=== PATIENT | female | born 1965 | race Caucasian/White ===

== ENCOUNTER 2016-12-06 13:39 | Emergency (ER) | payer MEDICAID, OTHER ==
[2016-12-06 13:47] VITALS: RESP 18
--- NOTE | 2016-12-06 14:29 | EDPHY ---
H & P Stated Complaint: MENTAL HEALTH HOLD, PT STATES SHE FELL HIT HEAD NO RECALL Source: Patient, Police Exam Limitations: No limitations - Personal History LMP (Females 10-55): Post Menopausal Current Tetanus/Diphtheria Vaccine: Yes Current Tetanus Diphtheria and Acellular Pertussis (TDAP): Yes Tetanus Vaccine Date: 2007 - Medical/Surgical History Hx Asthma: Yes Hx Chronic Respiratory Disease: Yes Hx Diabetes: No Hx Cardiac Disease: No Hx Renal Disease: No Hx Cirrhosis: No Hx Alcoholism: No Hx HIV/AIDS: No Hx Splenectomy or Spleen Trauma: No Other PMH: Asthma, Bacterial pulmonary aspergillious, OA, Breast implants, depression, anxiety, back L5-S1 and C3-7 fusions, ADHD, - Social History Smoking Status: Light smoker Time Seen by Provider: 12/06/16 13:53 HPI/ROS: CHIEF COMPLAINT: fall, amnesia, M1 from [place] [employer] HISTORY OF PRESENT ILLNESS: Two versions of the history of present illness. Patient reports that her friend took her downtown today for an appointment with her erisa attorney. She reports that after being dropped off by friends she does not exactly know what happened. She thinks that she fell but she is not sure. She does have a mild headache on the back of the head. She reports that she thinks that she was lost so she was trying to walk to the erisa attorney actually was pretty she does not have any recollection of the details of this, and she is not sure what happened to her purse, paperwork on phone that she had when her friend dropped her off. She says that she did not lose consciousness to her knowledge, but has a mild headache. She has no injuries elsewhere. She has no other information regarding today's events. No other obtainable associated complaints or modifying factors. [place] [employer] police officer supplements the history with the following. He says that they were contacted because the friend who dropped her off was concerned that she could no longer find her. The friend dropped her off downtown, with parked vehicle when she returned the patient was gone. She was concerned as she was supposed to wait for her. They eventually found the patient in [place] and brought her here and completed an M1 form due to suicidal ideation and possibility of psychosis. REVIEW OF SYSTEMS: Ten systems reviewed and are negative unless otherwise noted in the HPI EXAMINATION General Appearance: Alert, no distress Head: normocephalic, atraumatic. No hematoma, depression or deformity. No Gonsalves sign. No raccoon eyes. Eyes: Pupils equal and round, no conjunctival pallor or injection. No nystagmus. EOMs intact ENT, Mouth: Mucous membranes moist. Uvula midline. no erythema or edema Neck: Normal inspection, supple, non-tender Respiratory: Lungs are clear to auscultation. No wheezing, rhonchi or crackles Cardiovascular: Regular rate and rhythm. No murmur. Pulses intact distally Gastrointestinal: Abdomen is soft and nontender Back: non-tender, no bony abnormalities Neurological: A&Ox3. Strength is 5/5 in all limbs no focal deficits. Sensory intact. Amnestic to events of this morning Skin: Warm and dry, no rash Extremities: Nontender, no pedal edema Psychiatric: Mood and affect normal DIFFERENTIAL DIAGNOSES: Including but not limited to psychotic break, suicidal ideation, psychosis, suicidal ideation, suicide attempt, fugue MDM: 2:15 p.m. patient reports fall and amnesia of most of the days events yet there is no outward sign of trauma. [place] [employer] report that the patient is here because they were concerned that she may have disappeared without knowing where she was going, but she lost her possessions, she was confused about where she was actually going this morning. In addition to these scenarios, the patient also made statements to her friend of being suicidal today. She has no recollection of this but there is an M1 form completed by [place] [employer] due to suicidal ideation and possible psychosis. I have attempted to contact her Psychiatrist and left a message for them to contact us. 2:45 p.m. I had an extensive conversation with the patient's psychiatrist Dr. Natalia Can. Dr. Can provided in for admission regarding her previous care diagnosis. She informed me that the patient has had several months of ongoing cognitive abnormalities. She has been forgetful and has hard time remembering things in general. She reports 1 episode of previous suicidal ideation/ attempt in [place], which the patient and corroborated. She denies any recent suicidal ideation. The patient does have depression, PTSD and is treated with Pristiq and attention deficit hyperactivity disorder medications. Patient also reportedly has an aspergillosis infection of the lungs that is chronic. The psychiatrist feels that this may be related to her cognitive decline. She reports that the patient has had multiple imaging studies for this. She says that she would be happy to have her office reach out to the patient to help assist with her mental health evaluation. 3:12 p.m. patient's laboratory studies have returned, and she is medically cleared for evaluation. 5:40 p.m. have spoke with the mental health professional Connor Cunha. he has evaluated the patient and feels the M1 should be lifted and the patient can be seen tomorrow with her psychiatrist. The attending physician that he is working with also recommend this. I do feel this is reasonable given my conversation with the patient and her psychiatrist. I feel that she is not a risk to herself or others that she was never truly suicidal. Her cognitive function, although not normal, it is baseline for her, as corroborated by her psychiatrist. She will be discharged home stable condition with instructions to follow up with her psychiatrist tomorrow. She has agreed to return to the emergency department or contact her psychiatrist should she actually have any thoughts of self-harm. SUPERVISION: Patient was evaluated in conjunction with the supervising physician. Please see their note for details. (Dudley Valle) Constitutional: Initial Vital Signs Temperature (C) 36.8 C 12/06/16 13:42 Heart Rate 65 12/06/16 13:42 Respiratory Rate 18 12/06/16 13:42 Blood Pressure 152/98 H 12/06/16 13:42 O2 Sat (%) 98 12/06/16 13:42 O2 Delivery Mode Room Air Allergies/Adverse Reactions: ibuprofen Allergy (Verified 12/06/16 13:47) Sulfa (Sulfonamide Antibiotics) Allergy (Verified 12/06/16 13:47) Home Medications: Medication Instructions Recorded Adderall 10 mg Tablet 08/02/16 Advair 100/50 (*) 08/02/16 Diazepam [Valium 5 MG (*)] 5 mg PO TID PRN #15 tab 08/02/16 Lidocaine 08/02/16 Montelukast Sodium 08/02/16 Oxycodone HCl 08/02/16 Qvar 08/02/16 Solu-Medrol 08/02/16 Oxycodone HCl 5 mg PO QID #14 tablet 08/03/16 Nebivolol HCl [Bystolic] 5 mg PO 12/06/16 Prozozin, 12/06/16 Medical Decision Making Other Provider: Patient had mental health evaluation and it is recommendation of the police communications dispatcher and consulting psychiatrist that the mental health hold be vacated and the patient discharge with outpatient follow-up. Not psychotic or suicidal at discharge. (Hector Alvarez) - Data Points Laboratory Results: Laboratory Results 12/06/16 14:29 12/06/16 14:29 12/06/16 12/06/16 12/06/16 14:29 14:29 14:29 WBC 8.75 10^3/uL 10^3/uL (3.80-9.50) RBC 5.15 10^6/uL 10^6/uL (4.18-5.33) Hgb 14.3 g/dL g/dL (12.6-16.3) Hct 44.7 % % (38.0-47.0) MCV 86.8 fL fL (81.5-99.8) MCH 27.8 pg L pg (27.9-34.1) MCHC 32.0 g/dL L g/dL (32.4-36.7) RDW 17.2 % H % (11.5-15.2) Plt Count 286 10^3/uL 10^3/uL (150-400) MPV 10.7 fL fL (8.7-11.7) Neut % (Auto) 51.2 % % (39.3-74.2) Lymph % (Auto) 29.1 % % (15.0-45.0) [place] % (Auto) 6.2 % % (4.5-13.0) Eos % (Auto) 12.5 % H % (0.6-7.6) Baso % (Auto) 0.8 % % (0.3-1.7) Nucleat RBC Rel Count 0.0 % % (0.0-0.2) Absolute Neuts (auto) 4.48 10^3/uL 10^3/uL (1.70-6.50) Absolute Lymphs (auto) 2.55 10^3/uL 10^3/uL (1.00-3.00) Absolute Monos (auto) 0.54 10^3/uL 10^3/uL (0.30-0.80) Absolute Eos (auto) 1.09 10^3/uL H 10^3/uL (0.03-0.40) Absolute Basos (auto) 0.07 10^3/uL 10^3/uL (0.02-0.10) Absolute Nucleated RBC 0.00 10^3/uL 10^3/uL (0-0.01) Immature Gran % 0.2 % % (0.0-1.1) Immature Gran # 0.02 10^3/uL 10^3/uL (0.00-0.10) Sodium 141 mEq/L mEq/L (134-144) Potassium 3.9 mEq/L mEq/L (3.5-5.2) Chloride 107 mEq/L mEq/L (97-110) Carbon Dioxide 25 mEq/l mEq/l (22-31) Anion Gap 9 mEq/L mEq/L (8-16) BUN 20 mg/dL mg/dL (7-23) Creatinine 0.6 mg/dL mg/dL (0.6-1.0) Estimated GFR > 60 Glucose 87 mg/dL mg/dL (70-100) Calcium 9.9 mg/dL mg/dL (8.5-10.4) Beta HCG, Qual NEGATIVE Salicylates < 1.0 mg/dL L mg/dL (2.0-20.0) Urine Opiates Screen Acetaminophen < 10 mcg/mL L mcg/mL (10.0-30.0) Urine Barbiturates Ur Phencyclidine Scrn Ur Amphetamine Screen U Benzodiazepines Scrn Urine Cocaine Screen U Marijuana (THC) Screen Ethyl Alcohol < 10 mg/dL mg/dL (0-10) 12/06/16 13:50 WBC RBC Hgb Hct MCV MCH MCHC RDW Plt Count MPV Neut % (Auto) Lymph % (Auto) [place] % (Auto) Eos % (Auto) Baso % (Auto) Nucleat RBC Rel Count Absolute Neuts (auto) Absolute Lymphs (auto) Absolute Monos (auto) Absolute Eos (auto) Absolute Basos (auto) Absolute Nucleated RBC Immature Gran % Immature Gran # Sodium Potassium Chloride Carbon Dioxide Anion Gap BUN Creatinine Estimated GFR Glucose Calcium Beta HCG, Qual Salicylates Urine Opiates Screen NEGATIVE (NEGATIVE) Acetaminophen Urine Barbiturates NEGATIVE (NEGATIVE) Ur Phencyclidine Scrn NEGATIVE (NEGATIVE) Ur Amphetamine Screen NON-NEGATIVE H (NEGATIVE) U Benzodiazepines Scrn NON-NEGATIVE H (NEGATIVE) Urine Cocaine Screen NEGATIVE (NEGATIVE) U Marijuana (THC) Screen NEGATIVE (NEGATIVE) Ethyl Alcohol Departure - Departure Disposition: Home, Routine, Self-Care Clinical Impression: Cognitive and neurobehavioral dysfunction following brain injury Qualifiers: Encounter type: subsequent encounter Loss of consciousness presence/duration: without LOC Qualified Code(s): S06.9X0D - Unspecified intracranial injury without loss of consciousness, subsequent encounter Condition: Good Instructions: Suicide Prevention for Adults (ED) Additional Instructions: Follow up with psychiatrist tomorrow at 1:00 p.m.. Contact ED or Dr. Can for any thoughts of self harm Referrals: ZOE MÁRQUEZ [Other] - As per Instructions
[2016-12-06 14:47] LABS: % IMMATURE GRANULYOCYTES 0.2 % (0.0-1.1); ABSOLUTE IMMATURE GRANULOCYTES 0.02 10^3/uL (0.00-0.10); ADD DIFF? NO; ADD MORPH? NO; ADD SCAN? NO; ATYPICAL LYMPHOCYTE FLAG 0 (0-99); FRAGMENT RBC FLAG 0 (0-99); HEMATOCRIT 44.7 % (38.0-47.0); HEMOGLOBIN 14.3 g/dL (12.6-16.3); LEFT SHIFT FLG 0 (0-99); LIPEMIA HEMOLYSIS FLAG 80 (0-99); MEAN CELL HEMOGLOBIN 27.8 pg (27.9-34.1); MEAN CELL VOLUME 86.8 fL (81.5-99.8); MEAN PLATELET VOLUME 10.7 fL (8.7-11.7); PLATELET CLUMPS FLAG 0 (0-99); PLATELET COUNT 286 10^3/uL (150-400); RED BLOOD CELL COUNT 5.15 10^6/uL (4.18-5.33); RED CELL DISTRIBUTION WIDTH 17.2 % (11.5-15.2)
[2016-12-06 14:59] LABS: ANION GAP 9 mEq/L (8-16); CALCIUM 9.9 mg/dL (8.5-10.4); CARBON DIOXIDE 25 mEq/l (22-31); CHLORIDE 107 mEq/L (97-110); CREATININE 0.6 mg/dL (0.6-1.0); ETHANOL SERUM < 10 mg/dL (0-10); GLOMERULAR FILTRATION RATE > 60; GLUCOSE 87 mg/dL (70-100); POTASSIUM 3.9 mEq/L (3.5-5.2); SALICYLATE < 1.0 mg/dL (2.0-20.0); SODIUM 141 mEq/L (134-144)
[2016-12-06 18:34] VITALS: BP 140/85; PULSE 74; TEMP 97.9; O2SAT 95
== END 2016-12-06 18:00 | disposition home or self-care (01) ==
DX: S06.9X0A Unspecified intracranial injury without loss of consciousness, initial encounter (principal); J45.909 Unspecified asthma, uncomplicated; F17.200 Nicotine dependence, unspecified, uncomplicated; W01.198A Fall on same level from slipping, tripping and stumbling with subsequent striking against other object, initial encounter
CPT/HCPCS: 80305; G0480

== ENCOUNTER 2017-03-02 14:20 | Emergency (ER) | payer MEDICAID ==
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
[2017-03-02 15:44] VITALS: RESP 14; O2SAT 97
[2017-03-02] MEDS ORDERED: oxyCODONE IR 5 MG TAB PO ONE (16:11)
[2017-03-02 17:53] VITALS: BP 147/107; PULSE 92; TEMP 97.9
== END 2017-03-02 18:08 | disposition home or self-care (01) ==
DX: S13.9XXA Sprain of joints and ligaments of unspecified parts of neck, initial encounter (principal); S33.5XXA Sprain of ligaments of lumbar spine, initial encounter; S63.642A Sprain of metacarpophalangeal joint of left thumb, initial encounter; J45.909 Unspecified asthma, uncomplicated; F17.210 Nicotine dependence, cigarettes, uncomplicated; X58.XXXA Exposure to other specified factors, initial encounter; Y99.8 Other external cause status; Y93.52 Activity, horseback riding
CPT/HCPCS: L3807

== ENCOUNTER 2017-04-27 22:30 | Emergency (ER) | payer MEDICAID ==
--- NOTE | 2017-04-27 22:39 | EDPHY ---
H & P HPI/ROS: CHIEF COMPLAINT: Back pain. HISTORY OF PRESENT ILLNESS: The patient is a 51-year-old female with a history of cervical and lumbar fusions, chronic back pain, who presents with worsening lower back pain that began this morning. The pain is severe in nature. It radiates down both legs. Her right 1st toe and heel have been numb since yesterday when she helped a family member move hay. She denies fever, weakness, incontinence, saddle anesthesia, or other complaints. She has been taking oxycodone at home for the pain but has not taken any muscle relaxants. She is currently on a steroid taper. She is followed by Dr Shepard. She has had a relatively recent MRI and injection was recommended for her ongoing back pain. REVIEW OF SYSTEMS: A ten point review of systems was performed and is negative with the exception of the items mentioned in the HPI. Source: Patient Exam Limitations: No limitations - Personal History Tetanus Vaccine Date: 2007 - Medical/Surgical History Hx Asthma: Yes Hx Chronic Respiratory Disease: Yes Hx Diabetes: No Hx Cardiac Disease: No Hx Renal Disease: No Hx Cirrhosis: No Hx Alcoholism: No Hx HIV/AIDS: No Hx Splenectomy or Spleen Trauma: No Other PMH: 1. Asthma. 2. Bacterial pulmonary aspergillious. 3. OA. 4. Breast implants. 5. depression. 6. anxiety. 7. L5-S1 and C3-7 fusions. 8. ADHD - Social History Smoking Status: Light smoker Drug Use: None Additional Social History: Light smoker She is single - Physical Exam Exam: General Appearance: Alert, uncomfortable-appearing, curled in position. Vital signs reviewed. BP 137/81. Eyes: Pupils equal and round, no conjunctival injection, no discharge. Anicteric. ENT, Mouth: Mucous membranes are moist, no oropharyngeal erythema or edema. Neck: No lymphadenopathy, supple. Respiratory: Lungs are clear to auscultation; no wheezes, rales, or rhonchi. Cardiovascular: Regular rate and rhythm; no murmur, rub, or gallop. Gastrointestinal: Abdomen is soft and nontender, no masses or organomegaly, bowel sounds normal. Skin: Warm and dry, no rashes on exposed skin, normal color. Back: Nontender to palpation over the thoracolumbar spine. No CVAT. Previous surgical incision without erythema or warmth or fluctuance Extremities: No lower extremity edema, no calf tenderness or swelling. Neurological: Alert and oriented. Moving all four extremities easily and equally. Sensation is intact to light touch over all 4 extremities. Deep tendon reflexes are 2+ knees bilaterally. Weakness in right EHL, otherwise 5/5 all major motor groups BLEs. Psychiatric: Normal affect. Constitutional: Initial Vital Signs Temperature (C) 36.5 C 04/27/17 22:40 Heart Rate 92 04/27/17 22:40 Respiratory Rate 18 04/27/17 22:40 Blood Pressure 137/81 H 04/27/17 22:40 O2 Sat (%) 98 04/27/17 22:40 O2 Delivery Mode Room Air Allergies/Adverse Reactions: ibuprofen Allergy (Verified 04/27/17 22:41) Sulfa (Sulfonamide Antibiotics) Allergy (Verified 04/27/17 22:41) tapentadol [From Nucynta] Allergy (Verified 04/27/17 22:49) trazodone Allergy (Verified 04/27/17 22:49) Home Medications: Medication Instructions Recorded Adderall 10 mg Tablet 08/02/16 Advair 100/50 (*) 08/02/16 Montelukast Sodium 08/02/16 Oxycodone HCl 08/02/16 Qvar 08/02/16 Nebivolol HCl [Bystolic] 5 mg PO 12/06/16 Prozozin, 12/06/16 oxyCODONE IR [Oxycodone Ir (*)] 5 mg PO Q6 PRN #8 tab 03/02/17 Diazepam [Valium 5 MG (*)] 5 mg PO TID PRN #15 tab 04/27/17 Ipratropium 04/27/17 Mucomyst 04/27/17 Nasonex 04/27/17 Phenergan Vc-Codeine Syrup 04/27/17 Prednisone 04/27/17 Prozac 04/27/17 Voriconazole 04/27/17 Medical Decision Making ED Course/Re-evaluation: 51-year-old female presents to the ED today with lower back pain that radiates down both legs, with associated numbness in her right 1st toe and heel. 5mg IV Valium administered for pain control and muscle spasms. Re-evaluated at 11:30 p.m.. She is feeling significantly better after the IV Valium. She is able to lie flat on her back in the bed with her knees flexed slightly. She was re-examined. She has 5/5 hip flexion and extension, 5/5 knee flexion and extension, 5/5 plantar flexion, dorsiflexion, and EHL bilaterally. Sensation is intact to light touch. On initial exam she had weakness of the right EHL, this is no longer appreciated. I suspect that she is able to better participate in motor testing now that her pain is relieved. She is comfortable returning home. I am writing her prescription for Valium to use for muscle spasms as needed. She will continue with her oxycontin ( longstanding prescription). She did not ask for any refills or opiates. She will contact her neurosurgeon on Saturday. We discussed the danger signs that should prompt her to be re-evaluated. Differential Diagnosis: I considered a ddx that includes but is not limited to lumbar radiculopathy, epidural abscess, UTI/pyelonephritis, kidney stone, drug seeking behavior. - Data Points Medications Given: Discontinued Medications Diazepam (Valium Injection) 5 mg IVP EDNOW ONE Stop: 04/27/17 22:53 Last Admin: 04/27/17 23:02 Dose: 5 mg Departure - Departure Disposition: Home, Routine, Self-Care Clinical Impression: Lumbar radiculopathy Condition: Good Instructions: Lumbar Radiculopathy (ED) Additional Instructions: Follow up with Dr. Garza as planned. Call his office on Saturday to let him know about tonight's visit. Use the muscle relaxant as prescribed. Continue with your Oxy Contin and other medications. Referrals: Carlos Shepard MD [Medical Doctor] - As per Instructions Prescriptions: Diazepam [Valium 5 MG (*)] 5 mg PO TID PRN #15 tab PRN Reason: Spasms Report Scribed for: Nichole Osorio Report Scribed by: German Townsend Date of Report: 04/27/17 Time of Report: 22:46 Physician Review and Approval Statement: 04/27/17 22:39 Portions of this note were transcribed by the medical superintendent. I, Dr. Nichole Osorio, personally performed the history, physical exam, and medical decision- making; and confirmed the accuracy of the information in the transcribed note.
[2017-04-27 22:48] VITALS: TEMP 97.7
[2017-04-27] MEDS ORDERED: DIAZEPAM 10 MG/2 ML SYR IVP ONE (22:52)
[2017-04-28 00:03] VITALS: BP 124/71; PULSE 79; RESP 16; O2SAT 94
== END 2017-04-28 00:20 | disposition home or self-care (01) ==
LOC: EDUNIT#
DX: M54.16 Radiculopathy, lumbar region (principal); J45.909 Unspecified asthma, uncomplicated; F17.200 Nicotine dependence, unspecified, uncomplicated
CPT/HCPCS: 96374

== ENCOUNTER 2017-04-30 22:47 | Inpatient (IN) | payer MEDICAID ==
[2017-04-30] MEDS ORDERED: DIAZEPAM 10 MG/2 ML SYR IVP ONE (23:26)
[2017-04-30] MEDS ORDERED: fentaNYL 100 MCG/2 ML INJ IVP ONE (23:26)
--- NOTE | 2017-04-30 23:31 | EDPHY ---
H & P Stated Complaint: back spasms began Saturday with radiation to R hip and groin Source: Patient Exam Limitations: No limitations - Personal History Current Tetanus/Diphtheria Vaccine: Yes Tetanus Vaccine Date: 2007 - Medical/Surgical History Hx Asthma: Yes Hx Chronic Respiratory Disease: Yes Hx Diabetes: No Hx Cardiac Disease: No Hx Renal Disease: No Hx Cirrhosis: No Hx Alcoholism: No Hx HIV/AIDS: No Hx Splenectomy or Spleen Trauma: No Other PMH: 1. Asthma. 2. Bacterial pulmonary aspergillious. 3. OA. 4. Breast implants. 5. depression. 6. anxiety. 7. L5-S1 and C3-7 fusions. 8. ADHD - Social History Smoking Status: Light smoker HPI/ROS: CHIEF COMPLAINT: Back pain HISTORY OF PRESENT ILLNESS: Patient complains of severe lumbar back pain. This is an acute exacerbation of chronic pain. It started to worsen on Saturday and was associated with back spasms. It is steadily worsened. It is now radiating down the right leg and into the right groin. Also associated with occasional numbness and persistent paresthesia of the right foot on the plantar surface. She has had no incontinence of bowel or bladder. No retention of bowel or bladder. No anesthesia of the perineum. No fever or chills. No IV drug abuse. She has a longstanding history of lumbar degenerative disc disease and stenosis. She has undergone 1 surgical procedure in the past. She has been under pain management, physiotherapy, physical therapy and neuro surgical monitoring. She reports no new trauma or injury. She was seen here on Saturday and treated with Valium. She was prescribed Valium but was unable to pick it up until Saturday. The Valium helps her sleep but does not improve her symptoms during the day. She also takes 15 mg oxycodone every 4-6 hours, and she has been taking twice this with minimal improvement. No other associated complaints or modifying factors. REVIEW OF SYSTEMS: Ten systems reviewed and are negative unless otherwise noted in the HPI PAST MEDICAL HISTORY: Degenerative disc disease. Others as reviewed. SOCIAL HISTORY: Nonsmoker. Lives [place] in [place] with her daughter and roommate FAMILY HISTORY: Noncontributory EXAMINATION General Appearance: Alert, no distress. In obvious discomfort. Kneeling on the floor and leaning over the bed, anxious and fidgeting Head: normocephalic, atraumatic Eyes: Pupils equal and round, no conjunctival pallor or injection ENT, Mouth: Mucous membranes moist Neck: Normal inspection, supple, non-tender Respiratory: Lungs are clear to auscultation. No wheeze, rhonchi or crackles. Cardiovascular: Regular rate and rhythm. No murmur. Gastrointestinal: Abdomen is soft and nontender Back: Tenderness to palpation of the lumbar spine and upper sacrum. No crepitus, step-off or deformity. No palpable fluctuance. No erythema of the low back. No lesions, erythema or signs of infection Neurological: GCS 15. A&O, nonfocal. Antalgic gait. Strength is 5/5 in the left leg and both arms. Strength is 4/5 in the right lower extremity. Reports decreased sensation in the plantar surface of the right foot. Skin: Warm and dry, no rash. Excoriations to the face. No abscess, lesions, lacerations to the back or extremities. Extremities: Nontender, no pedal edema Psychiatric: Mood and affect normal DIFFERENTIAL DIAGNOSES: Including but not limited to acute cord compression, cauda equina syndrome, lumbago, spinal stenosis, degenerative disc disease, herniated disc, ruptured disc MDM: 11:25 p.m. Low back pain with right lower extremity involvement, right foot paresthesia and partial anesthesia of the dorsum of the right foot. There is mild weakness on the right lower extremity at the ankle and knee. Due to her extreme pain and mild deficits of the right lower extremity, I have ordered a stat MRI. We have notified the MRI team and requested that they return to the hospital for the MRI. I have ordered IV fentanyl and IV Valium. I do not appreciate any history or examination evidence that would suggest diskitis or infection, nor do I appreciate any possibility of epidural abscess. 12:30 a.m. Patient is currently in MRI. Her pain and increase, thus I have ordered a no other dose of IV pain medication to be administered. At this time I have discussed the case with Dr. Bundy. She will assume care the patient at this time. Her please see her note for final disposition. 12:50 a.m. Notified by ELIZA Dominique. Patient still continues to be too uncomfortable to obtain the MRI. I have verbally ordered 1 mg of Ativan IV. Continue to monitor closely an MRI. SUPERVISION: Patient was evaluated in conjunction with the supervising physician. Please see their note for details. (Dudley Valle) 6:30 a.m.- The patient was mostly sleeping throughout my shift. She received opiates and Ativan to control her pain for the MRI and was quite sedate afterwards. MRI did demonstrate sacral insufficiency fracture which was new as compared her old MRI. When she awoke just a few minutes ago we tried to get her up and walk and she could only walk with 2 person assist because the pain was so severe. I do not feel she is safe for discharge. I consulted with the on-call neurosurgeon for Dr. Shepard, Dr. Velazco. We discussed the case and her service will see the patient in consultation with the hospitalist. I consulted with Dr. Moore of the hospitalist service and we plan to admit the patient for pain control. (Manda Bundy) Constitutional: Initial Vital Signs Temperature (C) 37 C 04/30/17 22:57 Heart Rate 103 H 04/30/17 22:57 Respiratory Rate 18 04/30/17 22:57 Blood Pressure 133/69 H 04/30/17 22:57 O2 Sat (%) 93 04/30/17 22:57 O2 Delivery Mode Nasal Cannula O2 (L/minute) 1 Allergies/Adverse Reactions: ibuprofen Allergy (Verified 04/27/17 22:41) Sulfa (Sulfonamide Antibiotics) Allergy (Verified 04/27/17 22:41) tapentadol [From Nucynta] Allergy (Verified 04/27/17 22:49) trazodone Allergy (Verified 04/27/17 22:49) Home Medications: Medication Instructions Recorded Montelukast Sodium 08/02/16 Oxycodone HCl 08/02/16 Qvar 08/02/16 oxyCODONE IR [Oxycodone Ir (*)] 5 mg PO Q6 PRN #8 tab 03/02/17 Diazepam [Valium 5 MG (*)] 5 mg PO TID PRN #15 tab 04/27/17 Ipratropium 04/27/17 Nasonex 04/27/17 Prednisone 04/27/17 Prozac 04/27/17 Voriconazole 04/27/17 Departure - Departure Disposition: Home, Routine, Self-Care Clinical Impression: Lumbar radiculopathy Acute low back pain Qualifiers: Back pain laterality: right Sciatica presence: with sciatica Sciatica laterality: sciatica of right side Qualified Code(s): M54.41 - Lumbago with sciatica, right side Condition: Good Referrals: [facility] [Other] - As per Instructions
[2017-05-01] MEDS ORDERED: fentaNYL 100 MCG/2 ML INJ ONE (00:19)
[2017-05-01] MEDS ORDERED: LORazepam 2 MG/ML INJ ONE (00:51)
[2017-05-01] MEDS ORDERED: fentaNYL 100 MCG/2 ML INJ IVP ONE (01:07)
[2017-05-01] MEDS ORDERED: LORazepam 2 MG/ML INJ IVP ONE (01:07)
[2017-05-01] MEDS ORDERED: IPRATROPIUM/ALBUTEROL 3 ML DEYVIAL IH ONE (05:51)
[2017-05-01] MEDS ORDERED: ceFAZolin 2 GM/DEXTROSE 100 ML IV ONE ×2 (06:00→16:23)
[2017-05-01] MEDS ORDERED: ACETAMINOPHEN 325 MG TAB PO PRN (07:09)
[2017-05-01] MEDS ORDERED: ONDANSETRON DISINTEGRATING 4 MG TAB PO PRN (07:09)
[2017-05-01] MEDS ORDERED: ONDANSETRON 4 MG/2 ML VIAL IVP PRN (07:09)
[2017-05-01] MEDS ORDERED: PROMETHAZINE HCL 25 MG/ML INJ IVP PRN (07:09)
[2017-05-01] MEDS ORDERED: NS 1,000 ML IV SCH (07:15)
[2017-05-01] MEDS ORDERED: DIAZEPAM 5 MG TAB PO PRN (07:15)
[2017-05-01 07:24] LABS: % IMMATURE GRANULYOCYTES 0.3 % (0.0-1.1); ABSOLUTE IMMATURE GRANULOCYTES 0.01 10^3/uL (0.00-0.10); ADD DIFF? NO; ADD MORPH? NO; ADD SCAN? NO; ATYPICAL LYMPHOCYTE FLAG 40 (0-99); FRAGMENT RBC FLAG 0 (0-99); HEMATOCRIT 48.1 % (38.0-47.0); HEMOGLOBIN 15.8 g/dL (12.6-16.3); LEFT SHIFT FLG 0 (0-99); LIPEMIA HEMOLYSIS FLAG 80 (0-99); MEAN CELL HEMOGLOBIN 30.4 pg (27.9-34.1); MEAN CELL HEMOGLOBIN CONCENTR. 32.8 g/dL (32.4-36.7); MEAN CELL VOLUME 92.7 fL (81.5-99.8); MEAN PLATELET VOLUME 10.8 fL (8.7-11.7); PLATELET CLUMPS FLAG 40 (0-99); PLATELET COUNT 251 10^3/uL (150-400); RED BLOOD CELL COUNT 5.19 10^6/uL (4.18-5.33); RED CELL DISTRIBUTION WIDTH 13.7 % (11.5-15.2)
[2017-05-01 07:30] LABS: ALANINE AMINOTRANSFERASE 35 IU/L (9-52); ALBUMIN 3.7 g/dL (3.5-5.0); ALKALINE PHOSPHATASE 84 IU/L (38-126); ANION GAP 10 mEq/L (8-16); ASPARTATE AMINOTRANSFERASE 31 IU/L (14-46); BILIRUBIN,TOTAL 0.6 mg/dL (0.1-1.4); CALCIUM 9.3 mg/dL (8.5-10.4); CARBON DIOXIDE 25 mEq/l (22-31); CHLORIDE 103 mEq/L (97-110); CREATININE 0.7 mg/dL (0.6-1.0); GLOMERULAR FILTRATION RATE > 60; GLUCOSE 75 mg/dL (70-100); POTASSIUM 4.5 mEq/L (3.5-5.2); SODIUM 138 mEq/L (134-144); TOTAL PROTEIN 6.5 g/dL (6.3-8.2)
[2017-05-01] MEDS: HYDROmorphONE/DILAUDID 1 MG/ML SYR IVP PRN ×3 (09:08→20:03)
--- NOTE | 2017-05-01 09:43 | GHP ---
[f rep st] HISTORY AND PHYSICAL DATE OF ADMISSION: 05/01/2017 CHIEF COMPLAINT: Low back pain. HISTORY OF PRESENT ILLNESS: This is a 51-year-old female with a history of three previous spinal surgeries, who presents with acute low back pain. History is markedly limited by her somnolence. She is falling asleep continuously as I am trying to talk with her. She presented about 10 o'clock last night to the emergency department because of this. She was given some sedation to tolerate an MRI. This was completed successfully. For this, she did receive a total of 200 mcg of fentanyl, 5 mg of Valium and 1 mg of Ativan. She tells me she has no real lower extremity weakness or numbness. She has not lost control of her bowel or her bladder. She has had mild fevers. PAST MEDICAL/SURGICAL HISTORY: 1. ABPA, recently hospitalized here for a flare, currently on voriconazole as well as inhalers. 2. Three spinal surgeries as above; the last was on October 08, 2015. MEDICATIONS: Please see medication reconciliation. ALLERGIES: Ibuprofen, sulfa, trazodone. SOCIAL HISTORY: She is accompanied by her daughter. She just recently moved to [place]. FAMILY HISTORY: She denies. REVIEW OF SYSTEMS: A 10-point review of systems is conducted and is negative except per HPI. PHYSICAL EXAMINATION: VITAL SIGNS: Blood pressure 126/74, heart rate 105, respiration rate 16, saturating at 98% on room air. GENERAL: Ms. Littlejohn is a somnolent female who is falling asleep, who appears quite uncomfortable when she wakes up and tries to move. HEENT: Shows to be normocephalic, atraumatic. CARDIOVASCULAR: Regular rate and rhythm. No murmurs, rubs, or gallops. PULMONARY: Lungs clear to auscultation bilaterally. She is not in any respiratory distress. SKIN: Shows no rash. : No Navarro. NEUROLOGIC: Shows her to be alert and oriented x3. She is moving all extremities. She has sensation to light touch intact in the lower extremities. Reflexes are 1+ patella bilateral, motor seems to be intact but limited by strength mostly on the right side. She has no tenderness to palpation over her spinal prostheses. PSYCHIATRIC: Exam shows her to be depressed. DATA: 1. I discussed this with Dr. Bundy will admit to med/surg for pain control. 2. I reviewed her MRI. This shows a right sacral insufficiency fracture, which is new since February. She has degenerative disc disease. She has some mild left and right neuroforaminal stenosis at L5-S1. IMPRESSION AND PLAN: A 51-year-old female with uncontrolled low back pain. 1. Low back pain: Neurosurgery has been consulted. They will follow her while she is in-house. She does have a new sacral insufficiency fracture, though nothing more concerning on her MRI or her exam (which is very limited). We will treat her symptomatically for now with IV and oral pain medications, muscle relaxers, including Valium. We will monitor on pulse oximetry as she is quite somnolent. This is high risk having to use IV narcotics to control her pain. 2. ABPA: This is per her history. She does appear to be on voriconazole. I was unable to get too much history from her, though would like to understand her disease course a little bit better. She is currently breathing comfortably on room air. I have written her for nebulizers as needed. We will need to continue her voriconazole when these are reconciled. /[id number]/MODL MTDD
[2017-05-01] MEDS: oxyCODONE IR 5 MG TAB PO PRN (11:26)
[2017-05-01] MEDS ORDERED: ALBUTEROL 60 PUFFS/8 GM MDI IH PRN (11:53)
[2017-05-01] MEDS ORDERED: NON-FORMULARY NEW DRUG (Dextroamphetamine/Amphetamine [Adderall 30 Mg Tablet] 30 MG) PO SCH ×2 (12:00→21:00)
[2017-05-01] MEDS ORDERED: NON-FORMULARY NEW DRUG (Fluoxetine Hcl [Prozac 40 Mg] 40 MG) PO SCH (12:00)
--- NOTE | 2017-05-01 12:05 | HOSPPROG ---
Hospitalist Progress Note Assessment/Plan: 1. Sacral fracture -no fall, likely from chronic steroid use, awaiting IR re possible plasty, revwd neurosurg notes, discussed care with Dr Archer -rolando patch started, on chronic opioids, home meds restarted 2. [facility] resident -asked CM/SW to assist 3. chronic steroids for ABPA -says uses mechanical airway clearance vest, pulm toilet, asked resp to arrange as she did not bring her vest to hospital 4. ADHD/depression -says on daily adderall (but not taken for 2 days) -restarted on home med -denies street drug use -followed by [facility] prophy- holding lovenox bc of IR pending, TEDS Dispo- 1-2 more mdnts depending upon pain control/IR procedure PCP [facility]- Dr Lindsey and P Dr Natalia Can (sp?) Subjective: Very uncomfortable. Denies fall/trauma, says was mopping floor then sudden pain. Also noting some L wrist weakness (for a few days)- but no pain/ trauma. Living at [facility] with daughter, new to area. Sees [facility] and [facility]. No f/v/d/cp/sob. Objective: Vital Signs Temp Pulse Resp BP Pulse Ox 98.6 F 108 H 18 126/74 H 97 04/30/17 22:57 05/01/17 07:47 05/01/17 07:47 05/01/17 07:00 05/01/17 07:47 - Time Spent With Patient Time Spent with Patient: greater than 35 minutes Time Spent with Patient: Greater than 35 minutes spent on this patients care, greater than 50% of time spent counseling, educating, and coordinating care regarding the above mentioned plan. - Pending Discharge Pending Discharge Within 24 Hours: No - Physical Exam Constitutional: uncomfortable, unkempt Eyes: PERRL, anicteric sclera, EOMI Ears, Nose, Mouth, Throat: moist mucous membranes, hearing normal Cardiovascular: no murmur, rub, or gallop, tachycardia Respiratory: no respiratory distress, no rales or rhonchi, clear to auscultation Gastrointestinal: normoactive bowel sounds, soft, non-tender abdomen, no palpable masses Skin: warm, other (multiple scabs- no crusting or fluctuance noted) Neurologic: other (moving B wrists when not 'showing me' her L wrist, when ' showing me' L wrist it is flexed) Psychiatric: not encephalopathic, anxious ICD10 Worksheet Patient Problems: Problems Problem Status Onset Acute low back pain Acute Lumbar radiculopathy Acute Cervical sprain Acute Left thumb sprain Acute Lumbar sprain Acute
[2017-05-01] MEDS: predniSONE 10 MG TAB PO SCH (12:56)
[2017-05-01] MEDS: VORICONAZOLE 200 MG TAB PO SCH ×2 (12:56→20:04)
[2017-05-01] MEDS: FLUoxetine 20 MG CAP PO SCH (12:56)
[2017-05-01] MEDS: ADDERALL 20 MG TAB PO SCH ×2 (12:56→20:00)
[2017-05-01] MEDS: LIDOCAINE 5% 1 EA PATCH TD SCH (12:56)
[2017-05-01] MEDS: ACETYLCYSTEINE 10% 30 ML VIAL IH SCH ×2 (12:57→20:33)
[2017-05-01 13:05] LABS: PHENCYCLIDINE URINE BCH < 6 ng/ml (NEGATIVE); PHENCYCLIDINE URINE BCH NEGATIVE (NEGATIVE); TETRAHYDROCANNABINOL URINE < 5 ng/mL (NEGATIVE); TETRAHYDROCANNABINOL URINE NEGATIVE (NEGATIVE)
[2017-05-01] MEDS: BECLOMETHASONE QVAR 80 MDI IH SCH ×2 (13:32→20:33)
[2017-05-01] MEDS: IPRATROPIUM/ALBUTEROL 3 ML DEYVIAL IH SCH (13:33)
[2017-05-01 13:55] LABS: ALANINE AMINOTRANSFERASE 34 IU/L (9-52); ALBUMIN 3.2 g/dL (3.5-5.0); ALKALINE PHOSPHATASE 80 IU/L (38-126); ASPARTATE AMINOTRANSFERASE 26 IU/L (14-46); BILIRUBIN,TOTAL 0.8 mg/dL (0.1-1.4); CALCIUM 8.8 mg/dL (8.5-10.4); CARBON DIOXIDE 22 mEq/l (22-31); CHLORIDE 99 mEq/L (97-110); CREATININE 0.7 mg/dL (0.6-1.0); GLOMERULAR FILTRATION RATE > 60; GLUCOSE 70 mg/dL (70-100); SODIUM 130 mEq/L (134-144); TOTAL PROTEIN 5.8 g/dL (6.3-8.2)
[2017-05-01 15:42] LABS: ANION GAP 9 mEq/L (8-16); POTASSIUM 5.1 mEq/L (3.5-5.2)
--- NOTE | 2017-05-01 15:45 | GCON ---
[f rep st] CONSULTATION NEUROSURGICAL CONSULTATION. DATE OF CONSULTATION: 05/01/2017 CHIEF COMPLAINT: Right hip pain. HISTORY OF PRESENT ILLNESS: Ms Littlejohn is a 51-year-old female with a history of a previous cervical fusion and a lumbar spine surgery as well. She was helping her mom with some things and mopping, when she developed worsening right hip pain. She describes the pain in the right side of her sacrum and low back. She feels like her legs are generally weak and this is associated with some pain in her leg. She denies any ataxia or bowel or bladder problems. PAST MEDICAL HISTORY: Reactive airway disease, pulmonary aspergillosis, depression. MEDICATIONS: Prior to admission are albuterol, Qvar, Adderall, Valium, Prozac, herbal supplements, DuoNeb, Nasonex, Singulair, oxycodone, prednisone. PAST SURGICAL HISTORY: Includes cervical fusion and left L4-5 hemilaminotomy. ALLERGIES: Ibuprofen, sulfa, trazodone. FAMILY HISTORY: The patient has no family history of spine issues. SOCIAL HISTORY: The patient is , does have a daughter. She smokes and drinks alcohol socially. Denies recreational drug use. REVIEW OF SYSTEMS: Negative. PHYSICAL EXAM: GENERAL: The patient is a 51-year-old female lying in bed, in a moderate amount of distress. HEENT: Head, eyes, ears, nose, and throat are negative for drainage. EXTREMITIES: Faith, warm, and dry. NEUROLOGIC: Exam patient is awake, alert, oriented x4. Pupils equal, round, reactive to light. Extraocular motions are intact. There is no evidence of facial droop. Tongue and uvula are midline. Spinal accessory muscles are intact. Her motor strength is 5/5 in all muscle groups for upper and lower extremities bilaterally. Sensation is grossly intact to light touch in both upper and lower extremities bilaterally. Deep tendon reflexes are 1+/4. DIAGNOSTIC STUDIES: MRI of the lumbar spine [facility], May 01, 2017, shows preservation of the sagittal alignment. There is moderate L4-5 degenerative joint disease with Modic changes in the disk space. There are postoperative change consistent with a left L4-5 hemilaminotomy. There is a right sacral insufficiency fracture. There is no evidence of canal compromise. IMPRESSION: This is a 51-year-old female with right-sided hip and back pain, most likely related to a right-sided sacral insufficiency fracture. She is neurologically stable. PLAN: All the above was discussed in detail with the patient. This patient was seen and examined by Dr. Jorge Gambino in the emergency department. At this point in time, we recommend the patient rest. An LSO brace is not likely to help with her pain, but we do expect her pain to gradually improve on a conservative basis. If she fails to improve, then we could have Interventional Radiology consider a right-sided sacroplasty. At this point, we will follow her on a conservative basis. Please call with any neurological changes. /[id number]/MODL Patient has a profound left wrist drop that is painless and started acutely this morning. Triceps functions well. We suspect a positional radial nerve palsy. Sacralplasty is a treatment option for painful sacral fractures but we do not endorse this as a suggested treatment. It is unlikely to help. MD JACINTO Franklin
[2017-05-01] MEDS ORDERED: NS 1,000 ML IV ONE (16:23)
[2017-05-01] MEDS ORDERED: DEXAMETHASONE 10 MG/ML VIAL IVP ONE (16:23)
[2017-05-01] MEDS: Mometasone Furoate Nasal [Nasonex] 2 SPRAYS NASAL SCH (17:28)
[2017-05-01] MEDS: oxyCODONE IR 15 MG TAB PO PRN (18:10)
[2017-05-01] MEDS: MONTELUKAST SODIUM 10 MG TAB PO SCH (18:10)
[2017-05-01 18:31] LABS: COLOR YELLOW; LEUKOCYTE ESTERASE,URINE NEGATIVE (NEGATIVE); NITRITE,URINE NEGATIVE (NEGATIVE)
[2017-05-01 18:32] LABS: HEMATOCRIT 41.6 % (38.0-47.0); HEMOGLOBIN 14.2 g/dL (12.6-16.3); MEAN CELL HEMOGLOBIN 30.3 pg (27.9-34.1); MEAN CELL HEMOGLOBIN CONCENTR. 34.1 g/dL (32.4-36.7); MEAN CELL VOLUME 88.7 fL (81.5-99.8); RED BLOOD CELL COUNT 4.69 10^6/uL (4.18-5.33); RED CELL DISTRIBUTION WIDTH 13.3 % (11.5-15.2)
[2017-05-01 18:33] LABS: BACTERIA TRACE /hpf (NONE SEEN); MUCUS TRACE /lpf (NONE-1+)
[2017-05-01] MEDS: DIAZEPAM 2 MG TAB PO SCH (20:04)
[2017-05-01] MEDS: ALBUTEROL 3 ML DEYVIAL IH PRN (20:33)
[2017-05-01] MEDS ORDERED: BECLOMETHASONE QVAR 80 MDI IH SCH (21:00)
[2017-05-01] MEDS: PATCH REMOVAL 1 EA PATCH TD SCH (23:11)
[2017-05-02] MEDS: HYDROmorphONE/DILAUDID 1 MG/ML SYR IVP PRN ×3 (01:01→23:40)
[2017-05-02] MEDS: ALBUTEROL 3 ML DEYVIAL IH PRN ×2 (04:34→20:30)
[2017-05-02 05:57] LABS: HEMATOCRIT 38.2 % (38.0-47.0); HEMOGLOBIN 12.6 g/dL (12.6-16.3); MEAN CELL HEMOGLOBIN 29.6 pg (27.9-34.1); MEAN CELL VOLUME 89.9 fL (81.5-99.8); RED BLOOD CELL COUNT 4.25 10^6/uL (4.18-5.33); RED CELL DISTRIBUTION WIDTH 13.2 % (11.5-15.2)
[2017-05-02] MEDS ORDERED: DEXAMETHASONE 10 MG/ML VIAL IVP ONE (06:00)
[2017-05-02] MEDS ORDERED: ceFAZolin 2 GM/DEXTROSE 100 ML IV ONE (06:00)
[2017-05-02] MEDS ORDERED: NS 1,000 ML IV ONE (06:00)
[2017-05-02 06:12] LABS: ANION GAP 8 mEq/L (8-16); CALCIUM 8.9 mg/dL (8.5-10.4); CARBON DIOXIDE 24 mEq/l (22-31); CHLORIDE 99 mEq/L (97-110); CREATININE 0.7 mg/dL (0.6-1.0); GLOMERULAR FILTRATION RATE > 60; GLUCOSE 150 mg/dL (70-100); SODIUM 131 mEq/L (134-144)
[2017-05-02 06:27] LABS: VITAMIN D 25-HYDROXY TOTAL 28.5 ng/mL (30-100)
[2017-05-02] MEDS ORDERED: VANCOMYCIN HCL/NORMAL SALINE 250 ML IV ONE (07:30)
--- NOTE | 2017-05-02 07:51 | NEUSURGPN ---
Assessment/Plan: A: 51 yo F with sacral fracture on chronic steoirds for pulmonary issues. Now with L wrist drop Plan: -IR to perform sacroplasty today -MRI C spine ordered to eval wrist drop. Likely radial nerve palsy -Pain management -PT/OT -D/w Dr Gambino -Call [facility] with any neuro changes or questions Subjective: Pt resting in bed, concerned about the wrist weakness she is having. Objective: AAOx3 NAD VSS MAEx4 Motor 5/5 BUE with exception of L wrist drop Motor 5/5 BLE +LT Urinary Catheter in Place: No - Physician Discussed Patient with : [facility] Physical Exam - Vitals, I&O, Labs I and O 05/01/17 05/02/17 05/03/17 05:59 05:59 05:59 Output Total 2850 Balance -2850 Weight 58.967 kg Output: Urine (ml) 2850 Bedside Commode 2850 Other: Number of Voids 1 Vital Signs Temp Pulse Resp BP Pulse Ox 36.5 C 85 16 110/61 95 05/02/17 03:59 05/02/17 03:59 05/02/17 03:59 05/02/17 03:59 05/02/17 03:59 Laboratory Results 05/02/17 05:00 05/02/17 05:00 ICD10 Worksheet Patient Problems: Problems Problem Status Onset Acute low back pain Acute Lumbar radiculopathy Acute Cervical sprain Acute Left thumb sprain Acute Lumbar sprain Acute
[2017-05-02] MEDS: oxyCODONE IR 15 MG TAB PO PRN ×3 (08:20→20:17)
[2017-05-02] MEDS: DIAZEPAM 2 MG TAB PO SCH ×2 (08:21→17:46)
[2017-05-02] MEDS: D5W 1/2 NS 1,000 ML IV SCH ×2 (08:25→23:10)
[2017-05-02] MEDS ORDERED: DIAZEPAM 2 MG TAB PO PRN (09:16)
--- NOTE | 2017-05-02 09:25 | HOSPPROG ---
Hospitalist Progress Note Assessment/Plan: 1. Sacral fracture -no fall, likely from chronic steroid use, revwd neurosurg notes, discussed care with Dr Archer, could do sacroplasty but not now that has + blood cx -lido patch started, on chronic opioids, home meds restarted -appreciate assistance from [facility], Dr Sebastian to discuss with Dr Gambino re possible disciitis/infection as source of + bd cx, +- wrist drop 2. [facility] resident -CM/SW to assist -has a therapy dog, being placed in [facility] -daughter flying to [place] to be with family/friends - 3. chronic steroids for ABPA -says uses mechanical airway clearance vest, pulm toilet, asked resp to arrange as she did not bring her vest to hospital -says was at [facility] last week and has just stopped augmentin, records requested 4. ADHD/depression -restarted on home med -denies street drug use -followed by P as outpt 5. Vit d defic -po started 6. + bd cs MSSA/septicemia -ID consult done, discussed care with Dr Sebastian -MRI spine/brain stat to look for source -ancef IV 7. Hyperthyroid (low TSH, high T4, T3 and immunoglobin pending) -consider iodine uptake scan vs eval and work up as o/p with PCP DVT prophy- lovenox/scds Dispo- >2 more mdnts bc of septicemia unsure source PCP [facility]- Dr Lindsey and P Dr Natalia Can (sp?) Subjective: Feels better, pain OK with meds. No n/v/d. NPO for sacroplasty but hungry. Daughter going to [place] to be with FOC, has a therapy dog going to [facility] (she was staying in [facility]). Objective: Vital Signs Temp Pulse Resp BP Pulse Ox 97.7 F 85 16 110/61 95 05/02/17 03:59 05/02/17 03:59 05/02/17 03:59 05/02/17 03:59 05/02/17 03:59 Microbiology 05/01/17 18:15 Blood Panel (PCR) - Final Blood S.aureus Methicillin Suscept. Laboratory Results 05/02/17 05:00 05/02/17 05:00 04/30/17 05/01/17 05/02/17 11:59 11:59 11:59 Output Total 2850 Balance -2850 - Pending Discharge Pending Discharge Within 48 Hours: No - Physical Exam Constitutional: no apparent distress, uncomfortable (but better than yesterday) , unkempt, other (thin) Eyes: anicteric sclera Ears, Nose, Mouth, Throat: moist mucous membranes, hearing normal Cardiovascular: no murmur, rub, or gallop, tachycardia Respiratory: no respiratory distress, no rales or rhonchi, clear to auscultation Gastrointestinal: normoactive bowel sounds, soft, non-tender abdomen, no palpable masses Skin: warm, other (multiple healing abrasions on arms (has had an itchy rash- ? from medication given while at [facility]) but no fluctuance or erythema ) Musculoskeletal: other (L wrist drop) Psychiatric: interacting appropriately, not anxious, not encephalopathic, thought process linear ICD10 Worksheet Patient Problems: Problems Problem Status Onset Allergic bronchopulmonary aspergillosis Chronic MSSA (methicillin susceptible Staphylococcus aureus) septicemia Acute Lumbar radiculopathy Acute
[2017-05-02] MEDS: IPRATROPIUM/ALBUTEROL 3 ML DEYVIAL IH SCH (10:27)
[2017-05-02] MEDS: BECLOMETHASONE QVAR 80 MDI IH SCH ×2 (10:27→20:29)
[2017-05-02] MEDS: ACETYLCYSTEINE 10% 30 ML VIAL IH SCH ×2 (10:28→20:29)
[2017-05-02] MEDS ORDERED: ENOXAPARIN 30 MG/0.3 ML SYR SC SCH (12:15)
[2017-05-02] MEDS: ceFAZolin 2 GM/DEXTROSE 100 ML IV SCH ×3 (12:24→20:17)
[2017-05-02] MEDS: ADDERALL 20 MG TAB PO SCH ×2 (12:24→20:16)
[2017-05-02] MEDS: predniSONE 10 MG TAB PO SCH (12:25)
[2017-05-02] MEDS: FLUoxetine 20 MG CAP PO SCH (12:26)
[2017-05-02] MEDS: VORICONAZOLE 200 MG TAB PO SCH ×2 (12:28→20:16)
[2017-05-02] MEDS: CHOLECALCIFEROL VIT D3 2,000 UNITS TAB/CAP PO SCH (12:29)
[2017-05-02] MEDS: LIDOCAINE 5% 1 EA PATCH TD SCH (12:30)
[2017-05-02] MEDS: HEPARIN 5,000 UNIT/0.5 ML SYR SC SCH ×2 (16:04→23:10)
[2017-05-02] MEDS: Mometasone Furoate Nasal [Nasonex] 2 SPRAYS NASAL SCH (17:46)
[2017-05-02] MEDS ORDERED: GADOBUTROL 10 ML VIAL IVP ONE (18:54)
[2017-05-02] MEDS ORDERED: VANCOMYCIN HCL/NORMAL SALINE 250 ML IV SCH (20:00)
[2017-05-02] MEDS: PATCH REMOVAL 1 EA PATCH TD SCH (20:22)
[2017-05-02] MEDS: MONTELUKAST SODIUM 10 MG TAB PO SCH (23:03)
--- NOTE | 2017-05-03 01:50 | GCON ---
[f rep st] CONSULTATION INPATIENT INFECTIOUS DISEASE CONSULTATION REFERRING PHYSICIAN: Eliana Koehler MD REASON FOR REFERRAL: Staph aureus bacteremia. HISTORY OF PRESENT ILLNESS: Patient is a 51-year-old female, who presented to [facility] late on 04/30/2017 in the emergency room. She was admitted overnight that day. She complained initially of low back pain. She has a significant history of 3 previous spinal surgeries in the cer vical region, as well as lumbar region. When she presented in the emergency room, she was quite alireza nolent. She underwent a lumbar spine MRI which showed a possible fracture of the sacrum. No known trauma. The patient was seen by Neurosurgery on the morning of 05/02/2017. Elective sacroplasty wa s discussed. Blood cultures, however, returned this morning with methicillin-sensitive Staph aureus present in both sets. Patient was started on cefazolin 2 g IV q.8 hours. She is resting comfortab ly in her hospital bed and appears nontoxic. She is somewhat mildly agitated. Seems somewhat press ured in speech. She does complain of some back pain and girdle pain, but also complains of a new le ft wrist drop. Denies any significant fevers or chills. PAST MEDICAL HISTORY: 1. History of ABPA. Has been seen at [facility]. She is currently receiving voriconazole and other inhalers. 2. History of asthma. PAST SURGICAL HISTORY: Multiple spinal surgeries, including cervical fusion. ANTIBIOTICS: Cefazolin. ALLERGIES: Patient is allergic to sulfa, as well as vancomycin. She is also allergic to trazodone and ibuprofen. SOCIAL HISTORY: No significant tobacco use noted. No alcohol use or drug use noted. FAMILY HISTORY: Reviewed, but noncontributory. REVIEW OF SYSTEMS: Other than that detailed above in the history of present illness, comprehensive 10-system review is negative. PHYSICAL EXAMINATION: VITAL SIGNS: Temperature maximum is 38.1, temperature current is 36.9, heart rate is 116, respiratory rate is 16, blood pressure is 122/77. GENERAL: Patient is a well-formed, well-nourished, slightly agitated, middle-aged female in no acute distress. She is not toxic in ap pearance. She is alert and oriented x3. She has a pleasant demeanor. HEENT: Normocephalic for ag e. Atraumatic. No scleral icterus. No oral lesion or drainage from the nares. Eyes: Lids and co njunctivae are within normal limits. Pupils are equal and round bilaterally. NECK: Supple. No me ningismus. LUNGS: Clear to auscultation bilaterally with a slight wheeze expiratorily. Good effor t. HEART: Regular rate and rhythm. No murmur, rub, or gallop noted. No significant peripheral ed tigist. SKIN: Warm and dry to the touch. No rash or lesion noted. MUSCULOSKELETAL: No muscle belly tenderness is noted. No joint line effusion or arthritis seen. NEURO: Cranial nerves 2 through 1 2 seem to be intact. Peripheral sensation seems intact in extremities. LABORATORY DATA: Patient has a CBC dated 05/02/2017 shows white blood cell count 7.93, hemoglobin o f 12.6, hematocrit of 38.2, and a platelet count of 230. Differential is not present on this labora tory. Her presenting differential on a much lower white blood cell count of 3.85 on 04/30 is not lef t-shifted. Serum chemistries on 05/02/2017 show sodium of 131, potassium 5.0, chloride of 99, bicar bonate of 24, BUN of 13, and creatinine 0.7. Of note, TSH is 0.051, thyroxine level is 11.1, and to mary T3 is 0.924. RADIOGRAPHIC DATA: Patient has a noncontrasted lumbar spine MRI from 04/30/2017, which shows acute right sacral insufficiency fracture, as well as severe degenerative disk disease at L4-L5 resulting in minimal central canal narrowing and mild bilateral neural foraminal narrowing, right worse than l eft. Mild left and minimal right neural foraminal stenosis at L5-S1 due to disk space bulge. ASSESSMENT: 1. Methicillin-sensitive Staphylococcus aureus bacteremia. She is covered adequately with cefazoli n. Her multiple spinal hardware is certainly an area of suspicion. She is remarkably nontoxic give n her bacteremia. The left wrist drop certainly worries for spinal stenosis or foraminal outlet obs truction from infection and inflammation, probably in the cervical area given the upper extremity sy mptom. The lumbar MRI is not conclusive as to infection or inflammation. We will repeat MRIs with gadolinium of cervical, thoracic, lumbar, and sacral areas. Will also ask for an MRI of her brain. Meanwhile, we will continue on cefazolin monotherapy and follow up with blood cultures in 1-2 days for clearance. PLAN: 1. Continue Ancef 2 g IV q.8 hours. 2. MRI studies as described above. These were discussed in detail with Dr. Koehler. 3. Follow clinical course and follow up cultures. /[id number]/MODL
[2017-05-03] MEDS: ceFAZolin 2 GM/DEXTROSE 100 ML IV SCH ×3 (03:31→20:58)
[2017-05-03 04:53] LABS: % IMMATURE GRANULYOCYTES 0.5 % (0.0-1.1); ABSOLUTE IMMATURE GRANULOCYTES 0.03 10^3/uL (0.00-0.10); ADD DIFF? NO; ADD MORPH? NO; ADD SCAN? NO; ATYPICAL LYMPHOCYTE FLAG 60 (0-99); FRAGMENT RBC FLAG 0 (0-99); HEMATOCRIT 33.8 % (38.0-47.0); HEMOGLOBIN 11.1 g/dL (12.6-16.3); LEFT SHIFT FLG 0 (0-99); LIPEMIA HEMOLYSIS FLAG 80 (0-99); MEAN CELL HEMOGLOBIN 29.7 pg (27.9-34.1); MEAN CELL HEMOGLOBIN CONCENTR. 32.8 g/dL (32.4-36.7); MEAN CELL VOLUME 90.4 fL (81.5-99.8); MEAN PLATELET VOLUME 10.4 fL (8.7-11.7); PLATELET CLUMPS FLAG 0 (0-99); PLATELET COUNT 218 10^3/uL (150-400); RED BLOOD CELL COUNT 3.74 10^6/uL (4.18-5.33); RED CELL DISTRIBUTION WIDTH 13.4 % (11.5-15.2)
[2017-05-03 05:06] LABS: ANION GAP 8 mEq/L (8-16); CALCIUM 8.8 mg/dL (8.5-10.4); CARBON DIOXIDE 26 mEq/l (22-31); CHLORIDE 101 mEq/L (97-110); CREATININE 0.6 mg/dL (0.6-1.0); GLOMERULAR FILTRATION RATE > 60; GLUCOSE 169 mg/dL (70-100); POTASSIUM 4.9 mEq/L (3.5-5.2); SODIUM 135 mEq/L (134-144)
[2017-05-03] MEDS: HEPARIN 5,000 UNIT/0.5 ML SYR SC SCH ×2 (05:13→13:26)
[2017-05-03] MEDS: D5W 1/2 NS 1,000 ML IV SCH (05:13)
[2017-05-03] MEDS: HYDROmorphONE/DILAUDID 1 MG/ML SYR IVP PRN ×2 (06:26→10:50)
--- NOTE | 2017-05-03 07:58 | NEUSURGPN ---
Assessment/Plan: A: 51 yo F with sacral fracture on chronic steoirds for pulmonary issues. Now with L wrist drop Plan: -blood cx x 2 + for MSSA, on abx per ID. sacroplasty was cancelled. -Reviewed MRI brain/C/T spine - no concerning findings. No severe stenosis. xrays of C spine show stable hardware -Wrist drop. Likely radial nerve palsy. Recommend outpatient EMG in 3 weeks -Pain management -PT/OT -D/w Dr Gambino -Call [facility] with any neuro changes or questions Subjective: Pt resting in bedside chair, states it is hard to get comfortable due to hip/ buttock area pain Objective: AAOx3 NAD VSS MAEx4 continued L wrist drop +LT Urinary Catheter in Place: No - Physician Discussed Patient with : [facility] Physical Exam - Vitals, I&O, Labs I and O 05/02/17 05/03/17 05/04/17 05:59 05:59 05:59 Intake Total 2050 Output Total 1000 1000 Balance 1050 -1000 Intake: Oral (ml) 450 IV Intake (ml) 500 IV Infused (ml) 1100 D5w 1/2 Ns 1,000 ml @ 125 1100 mls/hr IV CONT SILVIA Rx#: [id number] Output: Urine (ml) 1000 1000 Bedside Commode 1000 1000 Other: Intake Quantity Yes Sufficient Number of Voids Bedside Commode 1 Vital Signs Temp Pulse Resp BP Pulse Ox 36.7 C 94 16 111/57 L 96 05/03/17 04:00 05/03/17 04:00 05/03/17 04:00 05/03/17 04:00 05/03/17 04:00 Laboratory Results 05/03/17 04:21 05/03/17 04:21 ICD10 Worksheet Patient Problems: Problems Problem Status Onset Lumbar radiculopathy Acute MSSA (methicillin susceptible Staphylococcus aureus) septicemia Acute Allergic bronchopulmonary aspergillosis Chronic Hepatitis C antibody positive in blood Chronic
[2017-05-03] MEDS: oxyCODONE IR 15 MG TAB PO PRN ×4 (08:14→22:20)
[2017-05-03] MEDS: FLUoxetine 20 MG CAP PO SCH (08:15)
[2017-05-03] MEDS: predniSONE 20 MG TAB PO SCH (08:16)
[2017-05-03] MEDS: ADDERALL 20 MG TAB PO SCH ×2 (08:16→18:44)
[2017-05-03] MEDS: CHOLECALCIFEROL VIT D3 2,000 UNITS TAB/CAP PO SCH (08:18)
[2017-05-03] MEDS: DIAZEPAM 2 MG TAB PO SCH ×2 (08:19→20:59)
[2017-05-03] MEDS: LIDOCAINE 5% 1 EA PATCH TD SCH (08:20)
[2017-05-03] MEDS: VORICONAZOLE 200 MG TAB PO SCH ×2 (08:30→21:00)
[2017-05-03] MEDS: ACETYLCYSTEINE 10% 30 ML VIAL IH SCH ×2 (09:39→20:34)
[2017-05-03] MEDS: IPRATROPIUM/ALBUTEROL 3 ML DEYVIAL IH SCH (09:39)
[2017-05-03] MEDS: BECLOMETHASONE QVAR 80 MDI IH SCH ×2 (09:44→20:34)
[2017-05-03] MEDS: oxyCODONE IR 5 MG TAB PO PRN ×2 (10:50→14:24)
[2017-05-03] MEDS ORDERED: LACTULOSE 20 GM/30 ML UDCUP PO PRN (13:03)
[2017-05-03] MEDS ORDERED: MAGNESIUM HYDROXIDE 30 ML UDCUP PO PRN (13:03)
[2017-05-03] MEDS: Mometasone Furoate Nasal [Nasonex] 2 SPRAYS NASAL SCH (14:06)
--- NOTE | 2017-05-03 14:30 | HOSPPROG ---
Hospitalist Progress Note Assessment/Plan: * Sacral fracture -no fall, likely from chronic steroid use, revwd neurosurg notes, discussed care with Dr Archer, could do sacroplasty but not now that has + blood cx -lido patch started, on chronic opioids, home meds restarted No diskitis * left wrist drop * Uncertain cause * Perhaps nerve injury when she was more obtunded * Will have Neurology see tomorrow * MSSA bacteremia * MRIs were negative * Does have some skin changes -will get echocardiogram * Infectious Disease is following * ABPA * Followed by [facility] * Will try to reorder her nebulizers that she was getting him before * On steroids but we decreased dose of 20 mg daily * hyperthyroidism * Probable Graves disease * Checking thyroid antibodies * social * Lives in a nursing home * attention deficit hyperactivity disorder and depression Subjective: Still with some back pain. Would like to get her nebulizers re ordered Objective: Vital Signs Temp Pulse Resp BP Pulse Ox 36.6 C 80 16 118/80 96 05/03/17 08:00 05/03/17 09:40 05/03/17 09:40 05/03/17 08:00 05/03/17 09:40 Laboratory Results 05/03/17 04:21 05/03/17 04:21 05/02/17 05/03/17 05/04/17 05:59 05:59 05:59 Intake Total 2049 Output Total 1000 1000 Balance 1050 -1000 - Physical Exam Constitutional: no apparent distress, appears nourished, not in pain Eyes: anicteric sclera, EOMI, other (Possible Graves eye changes) Ears, Nose, Mouth, Throat: moist mucous membranes, hearing normal Cardiovascular: regular rate and rhythym, no murmur, rub, or gallop Respiratory: no respiratory distress, no rales or rhonchi, clear to auscultation Gastrointestinal: normoactive bowel sounds, soft, non-tender abdomen, no palpable masses Skin: other (Possible petechiae both arms) Neurologic: other (Left wrist drop with some weakness in the biceps muscles) Psychiatric: interacting appropriately, not anxious, not encephalopathic, thought process linear ICD10 Worksheet Patient Problems: Problems Problem Status Onset Lumbar radiculopathy Acute MSSA (methicillin susceptible Staphylococcus aureus) septicemia Acute Allergic bronchopulmonary aspergillosis Chronic Hepatitis C antibody positive in blood Chronic
--- NOTE | 2017-05-03 15:05 | ECHO ---
[id number] + + [address] : : [place] [address] : : [phone] + Adult Echocardiographic Report + --+ :Name: CINDY BRIONESBryn Date: 05/03/2017 02:05 PM BP: 118/80 mmHg : : Hospital Admission Number: [id number] Location: 1 45: :: 1965 Gender: Female Height: 67 in : :Age: 51 yrs Race: WH Weight: 130 lb : :Reason For Study: eval for vegetations : : BSA: 1.7 meters2 : :History: staph bacteremia : + --+ MMode/2D Measurements \T\ Calculations IVSd: 0.80 cm RVDd: 3.9 cm FS: 40.2 % Ao root diam: LVPWd: 1.0 cm LVIDd: 4.4 cm EDV(Teich): 2.9 cm LVIDs: 2.6 cm 87.7 ml ESV(Teich): 25.3 ml EF(Teich): 71.1 % LVLd ap4: 9.8 cm SV(MOD-sp4): EDV(MOD-sp4): 99.0 ml 134.0 ml LVLs ap4: 8.2 cm ESV(MOD-sp4): 35.0 ml EF(MOD-sp4): 73.9 % Normal Measurement Values: + + :LVIDd (3.5-5.7cm) IVSd (0.6-1.1cm) LVPWd (0.6-1.1cm) Aortic Root (2.0-3.7cm)Left Atrium (1.5-4.0cm): :LV Vol(d) (76-115ml) LV Vol(s) (29-48ml) Ejec Fraction (50-65%)PV Steven (0.6- 1.2m/s) TV Steven (0.4-1.0m/s) : :MV E Steven (0.8-1.0m/s)MV A Steven (0.3-1.0m/s)LVOT Steven (0.7-1.2m/s) Asc Ao Steven ( 0.9-1.8m/s) : + + Doppler Measurements \T\ Calculations MV E max steven: Ao V2 max: LV V1 max: PA V2 max: 67.9 cm/sec 165.0 cm/sec 133.0 cm/sec 94.5 cm/sec MV A max steven: Ao max PG: LV V1 max PG: PA max P.3 cm/sec 10.9 mmHg 7.1 mmHg 3.6 mmHg MV E/A: 1.3 MV dec time: 0.28 sec TR max steven: 335.0 cm/sec TR max P.9 mmHg RAP systole: 5.0 mmHg RVSP(TR): 49.9 mmHg Left Ventricle The left ventricle is normal in size and function. There is normal left ventricular wall thickness. Ejection Fraction = 65-70%. No regional wall motion abnormalities noted. Right Ventricle The right ventricle is normal in size and function. Atria The left atrium is borderline dilated. The Left Atrial Volume is 35 ml/m2. Right atrial size is normal. Prominent Eustachian valve; cannot rule out vegetation. Mitral Valve The mitral valve leaflets appear thickened, but open well. There is no vegetation seen on the mitral valve. There is no mitral valve stenosis. There is mild mitral regurgitation. Tricuspid Valve The tricuspid valve is normal in structure and function. There is no tricuspid stenosis. There is mild to moderate tricuspid regurgitation. Right ventricular systolic pressure is 50mmHg. There is Doppler evidence for moderate pulmonary hypertension. Aortic Valve The aortic valve is trileaflet. There is no aortic valvular vegetation. There is no aortic stenosis. There is no aortic insufficiency. Pulmonic Valve The pulmonic valve is not well visualized. Great Vessels The aortic root is normal size. Pericardium/Pleural There is no pericardial effusion. Conclusion A two-dimensional transthoracic echocardiogram with pulsed and continuous Doppler was performed. There is no evidence of a mass or vegetation. This does not rule out endocarditis. The left ventricle is normal in size and function. Ejection Fraction = 65-70%. The left atrium is borderline dilated. The Left Atrial Volume is 35 ml/m2. There is mild mitral regurgitation. There is mild to moderate tricuspid regurgitation. Right ventricular systolic pressure is 50mmHg. There is Doppler evidence for moderate pulmonary hypertension. Prominent Eustachian valve; cannot rule out vegetation. Consider MIGUEL if clinically waranted. Final Reading Physician: Carlos Doyle signed on 05/03/2017 03:04 PM Ordering Physician: Destin Rosen Performed By: Andreina Curry
[2017-05-03] MEDS: BISACODYL 10 MG SUPP PR PRN (15:25)
[2017-05-03] MEDS: FLUTICASONE/SALMETER 250/50MCG DISKUS IH SCH ×2 (16:08→20:39)
[2017-05-03] MEDS: POLYETHYLENE GLYCOL 3350 17 GM PKT PO PRN (17:48)
[2017-05-03] MEDS: MONTELUKAST SODIUM 10 MG TAB PO SCH (17:49)
--- NOTE | 2017-05-03 17:56 | PCMIDPN ---
Assessment/Plan: Assessment: MSSA bacteremia-unclear source. No significant localizing symptoms which would direct examination for source. On the other hand the patient has a significant amount of surgical hardware in her spine which by MRI of cervical and thoracic areas does not appear to be the source of infection at this point. Repeat lumbar MRI was not done with contrast. Will continue her cefazolin therapy. Will recheck blood cultures. Echocardiogram without clear vegetation. Hold off on MIGUEL unless blood cultures fail to clear. Plan: 1. Repeat blood cultures 2. Continue cefazolin 2 g IV q.8 hours 3. Follow clinical course. 05/03/17 17:51 05/03/17 17:54 Subjective: Patient unable to be seen secondary to absence from room x3. Objective: Cefazolin # 2 Vital Signs Temp Pulse Resp BP Pulse Ox 36.6 C 80 16 118/80 96 05/03/17 08:00 05/03/17 09:40 05/03/17 09:40 05/03/17 08:00 05/03/17 09:40 Laboratory Results 05/03/17 04:21 05/03/17 04:21 05/02/17 05/03/17 05/04/17 05:59 05:59 05:59 Intake Total 2050 600 Output Total 1000 1000 Balance 1050 -400 - Physical Exam General Appearance: WD/WN, non-toxic ICD10 Worksheet Patient Problems: Problems Problem Status Onset Lumbar radiculopathy Acute MSSA (methicillin susceptible Staphylococcus aureus) septicemia Acute Allergic bronchopulmonary aspergillosis Chronic Hepatitis C antibody positive in blood Chronic
[2017-05-03] MEDS: ALBUTEROL 3 ML DEYVIAL IH PRN (20:34)
[2017-05-03] MEDS: SENNOSIDES/DOCUSATE SODIUM TAB PO SCH (20:59)
[2017-05-03] MEDS: PATCH REMOVAL 1 EA PATCH TD SCH (22:04)
[2017-05-04] MEDS: ceFAZolin 2 GM/DEXTROSE 100 ML IV SCH ×3 (03:21→21:19)
[2017-05-04] MEDS: oxyCODONE IR 5 MG TAB PO PRN (03:21)
[2017-05-04] MEDS: SENNOSIDES/DOCUSATE SODIUM TAB PO SCH (08:52)
[2017-05-04] MEDS: VORICONAZOLE 200 MG TAB PO SCH ×2 (08:52→21:22)
[2017-05-04] MEDS: CHOLECALCIFEROL VIT D3 2,000 UNITS TAB/CAP PO SCH (08:53)
[2017-05-04] MEDS: predniSONE 20 MG TAB PO SCH (08:53)
[2017-05-04] MEDS: FLUoxetine 20 MG CAP PO SCH (08:53)
[2017-05-04] MEDS: DIAZEPAM 2 MG TAB PO SCH ×2 (08:53→21:22)
[2017-05-04] MEDS: LIDOCAINE 5% 1 EA PATCH TD SCH ×2 (08:54→09:09)
[2017-05-04] MEDS: ENOXAPARIN 40 MG/0.4 ML SYR SC SCH (08:56)
[2017-05-04] MEDS: ADDERALL 20 MG TAB PO SCH ×2 (08:57→15:51)
[2017-05-04] MEDS: HYDROmorphONE/DILAUDID 1 MG/ML SYR IVP PRN (09:05)
[2017-05-04] MEDS ORDERED: HYPERTONIC SALINE IH PRN (10:03)
[2017-05-04] MEDS ORDERED: ACETYLCYSTEINE 10% 30 ML VIAL IH PRN (10:03)
[2017-05-04] MEDS ORDERED: DIAZEPAM 5 MG TAB PO PRN (10:03)
[2017-05-04] MEDS: [UNRECOGNIZED DRUG - OTHER] IH SCH ×2 (10:03→20:53)
[2017-05-04] MEDS ORDERED: NON-FORMULARY NEW DRUG (Fluticasone/Salmeterol [Advair Hfa 230-21 Mcg Inhaler] 1 PUFFS) IH SCH (10:15)
[2017-05-04] MEDS ORDERED: ACETYLCYSTEINE 10% 30 ML VIAL IH SCH (10:15)
[2017-05-04] MEDS ORDERED: HYDROmorphONE/DILAUDID 2 MG/ML INJ IVP ONE (10:16)
[2017-05-04] MEDS: ACETYLCYSTEINE 10% 30 ML VIAL IH SCH ×2 (10:19→20:52)
[2017-05-04] MEDS: FLUTICASONE/SALMETER 250/50MCG DISKUS IH SCH ×2 (10:20→20:52)
[2017-05-04] MEDS: BECLOMETHASONE QVAR 80 MDI IH SCH ×2 (10:21→20:52)
[2017-05-04] MEDS: IPRATROPIUM/ALBUTEROL 3 ML DEYVIAL IH SCH (10:22)
[2017-05-04] MEDS: Mometasone Furoate Nasal [Nasonex] 2 SPRAYS NASAL SCH (10:46)
[2017-05-04] MEDS: oxyCODONE IR 15 MG TAB PO PRN ×3 (11:35→21:22)
--- NOTE | 2017-05-04 12:20 | PCMIDPN ---
Assessment/Plan: 1. High-grade MSSA bacteremia: Patient has multiple breaks in the skin as possible portal of entry. At this point in time, the extensive hardware in her spine does not appear to be infected. I reviewed lumbar spine MRI with Dr. Falcon; he does not feel that a contrasted study would add much at this point in time. Repeat blood cultures will be done today. TTE negative; will need transthoracic echocardiogram blood cultures are not clearing. Continue Ancef as is. 2. Hepatitis-C antibody positive: RNA pending. Patient is agreeable to an HIV test, which I ordered today. 3. History of allergic bronchopulmonary aspergillosis, followed by [facility]: Continue voriconazole. 05/04/17 12:21 Subjective: Complaining of severe pain in her right sacrum. Difficulty walking without a walker. No shaking chills. No diarrhea on the antibiotics. Objective: Ancef 2 g IV q.8 hours day 2 T-max 37.2degrees Vital Signs Temp Pulse Resp BP Pulse Ox 36.8 C 84 22 H 130/83 H 94 05/04/17 08:12 05/04/17 10:10 05/04/17 10:10 05/04/17 08:12 05/04/17 10:10 Laboratory Results 05/03/17 04:21 05/03/17 04:21 05/03/17 05/04/17 05/05/17 05:59 05:59 05:59 Intake Total 2050 2160 Output Total 1000 1251 Balance 1050 909 Blood cultures from May 01: 01/15 bottles with MSSA Transthoracic echocardiogram negative Hepatitis-C antibody positive/RNA pending - Physical Exam General Appearance: cachetic, other (Looks tired.) EENT: pharynx normal, other (Mildly proptotic), No tonsillar exudate Respiratory: lungs clear Cardiac/Chest: tachycardia, No diastolic murmur, No systolic murmur Abdomen: non-tender, soft Back: normal inspection, other (Exquisite tenderness to palpation around right SI joint), No spine tenderness Skin: other (Multiple superficial excoriations/scabs on her forearms bilaterally.), No embolic lesions Neuro/Psych: other (Left wrist drop) ICD10 Worksheet Patient Problems: Problems Problem Status Onset Lumbar radiculopathy Acute MSSA (methicillin susceptible Staphylococcus aureus) septicemia Acute Allergic bronchopulmonary aspergillosis Chronic Hepatitis C antibody positive in blood Chronic
--- NOTE | 2017-05-04 12:58 | HOSPPROG ---
Hospitalist Progress Note Assessment/Plan: * Sacral fracture -no fall, likely from chronic steroid use, revwd neurosurg notes, discussed care with Dr Archer, could do sacroplasty but not now that has + blood cx -lido patch started, on chronic opioids, home meds restarted No diskitis increase pain meds * left wrist drop * Uncertain cause * Perhaps nerve injury when she was more obtunded * Will have Neurology see tomorrow * seems to be getting better * MSSA bacteremia * MRIs were negative * Does have some skin changes -MIGUEL Ok * Infectious Disease is following * ABPA * Followed by [facility] * Will try to reorder her nebulizers that she was getting him before * On steroids but we decreased dose of 20 mg daily * hyperthyroidism * Probable Graves disease * Checking thyroid antibodies * social * Lives in a custodial * attention deficit hyperactivity disorder and depression Subjective: c/o of sacral pain - pain medicine not working Objective: Vital Signs Temp Pulse Resp BP Pulse Ox 36.8 C 84 22 H 130/83 H 94 05/04/17 08:12 05/04/17 10:10 05/04/17 10:10 05/04/17 08:12 05/04/17 10:10 Laboratory Results 05/03/17 04:21 05/03/17 04:21 05/03/17 05/04/17 05/05/17 05:59 05:59 05:59 Intake Total 2049 2160 Output Total 1000 1251 Balance 1050 909 - Physical Exam Constitutional: no apparent distress, appears nourished, not in pain Eyes: anicteric sclera, EOMI Ears, Nose, Mouth, Throat: moist mucous membranes, hearing normal Cardiovascular: regular rate and rhythym Respiratory: no respiratory distress, no rales or rhonchi, clear to auscultation Gastrointestinal: normoactive bowel sounds, soft, non-tender abdomen, no palpable masses Skin: warm Neurologic: AAOx3 Psychiatric: interacting appropriately, not anxious, not encephalopathic, thought process linear ICD10 Worksheet Patient Problems: Problems Problem Status Onset Lumbar radiculopathy Acute MSSA (methicillin susceptible Staphylococcus aureus) septicemia Acute Allergic bronchopulmonary aspergillosis Chronic Hepatitis C antibody positive in blood Chronic
--- NOTE | 2017-05-04 14:12 | NEUROPROG ---
Assessment: [id number] CC: Dr. Destin Rosen consulted neurology for wrist drop. Results placed in the EMR for his review. HPI: This female patient was initially seen 05/04/17 for an inpatient consult. She presented to the [facility] ER on 05/01/17 for acute lower back pain and right hip pain. She denied significant leg weakness, sensory changes, or change in bowel/ bladder function. An L-spine MRI showed a R sacral insufficiency fracture new since February 2017 (likely from her use of chronic steroids). The MRI also showed degen disc disease and some mild L and R NF stenosis of L5/S1. Neurosurgery saw the patient on 05/01/17 and felt her acute pain was from her right sacral fracture. No surgery was recommended and neurosurgery planned on focusing on pain control. On 05/01/17 the patient developed a left wrist drop. A brain, cervical, and thoracic MRI w/ and w/o con was performed but showed no structural lesion to explain her new left wrist drop. She was also noted to have thyroid dysfunction. On 05/02/17 her blood cultures were positive so ID was consulted. ID felt she had methicillin-sensitive Staphylococcus aureus bacteremia and started antibiotics. Brain/total spine MRIs and TTE did not show any source for her bacteremia. Neurology was consulted to evaluate her left wrist drop. She denied having it prior to 05/01/17. Her left wrist drop was weakness in left wrist extension with pain/tingling in the distribution of the left superficial radial nerve. PMHx: chronic back pain with 3 previous back surgeries in cervical and lumbar regions (last September 2015), reactive airway disease, pulmonary aspergillosis on chronic steroids, depression Home Meds: albuterol, QVAR, Adderall, valium, prozac, Duoneb, nasonex, singulair , oxycodone, prednisone SHx: recently moved here from [place] FHx: Daughter alive ROS: Pt denied acute fever, total vision loss, active severe chest pain, respiratory failure, total body severe rash, total bowel/bladder incontinence, psychosis, active seizures, or active bleeding O: VS reviewed General: Alert Eyes: Fundoscopic exam not able to visualize optic disks CV: Heart RRR, no murmur, no carotid bruit Lungs: Clear to auscultation bilaterally, no rhonci or rales Neuro: - Mental: . Oriented x person/place/date . concentration appears normal . speech fluency/comprehension normal . memory appears normal . fund of knowledge appear intact - Cranial Nerves: . II: PERRL, VFFTC . III/IV/: EOMI, no nystagmus, normal smooth pursuits, no Ptosis . V: facial sensation intact to LT . VII: face symmetric to eye closure and smile . VIII: hearing intact to conversation . IX/X: uvula raises symmetrically . XI: SCM 5/5 B/L strength . XII: tongue protrudes midline w/nl strength - Motor: . Tone: normal tone in all 4 extrem except for decreased tone in left wrist . Strength: no pronator drift, strength 5/5 throughout (B/L delt, bic, tri, hand manager product marketing, hf/he, df/pf) except for 0/5 in left wrist extension - Reflexes: B/L bic/BR/patella 2/4 - Sensory: all 4 extrem intact to light touch - Coord: [id number] wnl, [place] wnl, [id number] wnl - Gait: deferred Labs: Rads: 05/01/17- L-spine MRI w/o con: acute R sacral insufficiency fx, severe degen disk disease at L4/5 w/mild canal narrowing and B/L NF narrowing, other degen changes (see full report) 05/02/17- T-spine MRI w/ and w/o con: no discitis, osteomyelitis, or epidural abscess; widely patent central canal, tiny disk bulge at T7/8 w/o stenosis of canal 05/02/17- C-spine MRI w/ and w/o con: No evidence of discitis, osteomyelitis, or epidural abscess; normal spinal cord, abt diskectomy and fusion seen C4-7, no disk herniation or significant canal stenosis, NF narrowing at various levels 05/02/17- Brain MRI w/ and w/o con: no evidence of ischemia, hemorrhage, or encephalomyelitis, mild white matter disease likely of no clinical significance (I personally visualized the images on 05/04/17) 05/03/17- TTE: no vegetation or mass seen for source of bacteremia Assessment: 1. Right Sacral Fracture likely from chronic steroid use: managed by Neurosurgery, likely no surgery needed just pain control but sacral procedure by IR is possible 2. MSSA Bacteremia: No clear source after brain/total spine and TTE. ID following and treating with abx 3. New Left Wrist Drop on 05/01/17: Neurologic exam on 05/04/17 shows only left wrist drop but no other focal neurologic deficits. This is likely from a radial nerve palsy. Thyroid disorder, chronic steroids, lying in dependent positions for prolonged period of time can all predispose to this condition ( Especially if on chronic opiates and benzodiazepine medications as it appears this patient is). No disease modifying medication is available. This condition is typically treated with physical therapy and generally has a good outcome if underlying conditions that may have exacerbated it our well controlled. She should also avoid using sedating medications and laying her arm in a vulnerable position (such as lying hanging over a chair). Recommend physical therapy and outpatient f/u in neurology clinic for EMG/NCS in 3 weeks if symptoms have not resolved. 4. ABPA 5. Hyperthyroidism: Defer to hospitalist, then condition increases risk of neuropathy 6. Social: Lives in [facility] Plan: - Physical therapy for left wrist drop - Optimize control of underlying medical conditions to improve chance of recovering from wrist drop - F/U in 3 weeks in neurology clinic for EMG/NCS of left wrist if symptoms have not resolved Objective: Vital Signs Temp Pulse Resp BP Pulse Ox 36.8 C 84 22 H 130/83 H 94 05/04/17 08:12 05/04/17 10:10 05/04/17 10:10 05/04/17 08:12 05/04/17 10:10 Laboratory Results 05/03/17 04:21 05/03/17 04:21 05/03/17 05/04/17 05/05/17 05:59 05:59 05:59 Intake Total 2050 2160 Output Total 1000 1251 Balance 1050 909 Allergies/Adverse Reactions: vancomycin Allergy (Severe, Verified 05/02/17 08:47) Anaphylaxis ibuprofen Allergy (Verified 04/27/17 22:41) Sulfa (Sulfonamide Antibiotics) Allergy (Verified 04/27/17 22:41) tapentadol [From Nucynta] Allergy (Verified 04/27/17 22:49) trazodone Allergy (Verified 04/27/17 22:49)
[2017-05-04] MEDS: MONTELUKAST SODIUM 10 MG TAB PO SCH (16:57)
[2017-05-04] MEDS: ALBUTEROL 3 ML DEYVIAL IH PRN (20:52)
[2017-05-05] MEDS: SENNOSIDES/DOCUSATE SODIUM TAB PO SCH ×3 (01:00→20:33)
[2017-05-05] MEDS: PATCH REMOVAL 1 EA PATCH TD SCH ×2 (01:00→21:15)
[2017-05-05] MEDS: ceFAZolin 2 GM/DEXTROSE 100 ML IV SCH ×3 (04:15→20:35)
[2017-05-05] MEDS: oxyCODONE IR 15 MG TAB PO PRN ×5 (04:15→20:31)
[2017-05-05] MEDS: ADDERALL 20 MG TAB PO SCH ×2 (08:28→16:10)
[2017-05-05] MEDS: CHOLECALCIFEROL VIT D3 2,000 UNITS TAB/CAP PO SCH (08:29)
[2017-05-05] MEDS: VORICONAZOLE 200 MG TAB PO SCH ×2 (08:30→20:32)
[2017-05-05] MEDS: DIAZEPAM 2 MG TAB PO SCH ×2 (08:30→21:14)
[2017-05-05] MEDS: FLUoxetine 20 MG CAP PO SCH (08:30)
[2017-05-05] MEDS: LIDOCAINE 5% 1 EA PATCH TD SCH (08:35)
[2017-05-05] MEDS: ENOXAPARIN 40 MG/0.4 ML SYR SC SCH (08:36)
[2017-05-05] MEDS: predniSONE 20 MG TAB PO SCH (08:44)
[2017-05-05] MEDS: FLUTICASONE/SALMETER 250/50MCG DISKUS IH SCH ×2 (09:13→20:50)
[2017-05-05] MEDS: BECLOMETHASONE QVAR 80 MDI IH SCH ×2 (09:14→20:48)
[2017-05-05] MEDS: IPRATROPIUM/ALBUTEROL 3 ML DEYVIAL IH SCH (09:16)
[2017-05-05] MEDS: [UNRECOGNIZED DRUG - OTHER] IH SCH ×2 (09:18→20:54)
[2017-05-05] MEDS: ACETYLCYSTEINE 10% 30 ML VIAL IH SCH ×2 (09:18→20:47)
[2017-05-05] MEDS: METHIMAZOLE 5 MG TAB PO SCH (10:08)
--- NOTE | 2017-05-05 11:06 | PCMIDPN ---
Assessment/Plan: 1. High-grade MSSA bacteremia: Patient has multiple breaks in the skin as possible portal of entry. She adamantly denies injection drug use. For now, given possibility of upcoming neurosurgical intervention for her sacral fracture, I would like to order an MRI with contrast of the LS spine (previous study was non contrasted) as well as an MRI with contrast of the right hip to ensure no underlying infection in these areas. Continue Ancef. Repeat blood cultures are pending. MIGUEL if blood cultures do not clear. 2. Hepatitis-C antibody positive: RNA pending. HIV antibody test pending. 3. History of allergic bronchopulmonary aspergillosis, followed by [facility]: Continue voriconazole. Subjective: Patient is in excruciating pain, 10/10 in her right SI joint that extends to her hip. Able to bear weight, but extremely painful. No rigors. I asked her point blank about injection drug use, as the nursing staff told me yesterday that a syringe was found in her purse and a needle in her bed 2 days ago. Patient adamantly denied any injection drug use, and told me that the needle was to access her Mucomyst. Objective: Ancef 2 g IV q.8 hours day 3 Afebrile Vital Signs Temp Pulse Resp BP Pulse Ox 36.6 C 82 20 129/82 H 96 05/05/17 07:25 05/05/17 09:19 05/05/17 09:19 05/05/17 09:19 05/05/17 09:19 Laboratory Results 05/03/17 04:21 05/03/17 04:21 05/04/17 05/05/17 05/06/17 05:59 05:59 05:59 Intake Total 2160 2448 Output Total 1251 1500 Balance 909 948 Repeat blood cultures pending Previous blood cultures with MSSA all 4 bottles HIV antibody test pending HCV quantitative RNA pending - Physical Exam General Appearance: other (Disheveled, appears to be in extreme pain.) Cardiac/Chest: No systolic murmur Back: other (Exquisite tenderness to palpation right SI joint. The patient is standing upright with a walker and has extreme pain bearing weight. On physical exam yesterday she did not have discomfort with external or internal rotation of the hip, per se. I did not check this again today.) Skin: other (Superficial excoriations, scabs on her forearms), No embolic lesions ICD10 Worksheet Patient Problems: Problems Problem Status Onset Lumbar radiculopathy Acute MSSA (methicillin susceptible Staphylococcus aureus) septicemia Acute Allergic bronchopulmonary aspergillosis Chronic Hepatitis C antibody positive in blood Chronic
[2017-05-05] MEDS: Mometasone Furoate Nasal [Nasonex] 2 SPRAYS NASAL SCH (11:12)
[2017-05-05 11:33] LABS: HEMATOCRIT 36.7 % (38.0-47.0)
[2017-05-05] MEDS ORDERED: GADOBUTROL 10 ML VIAL IVP ONE (12:26)
--- NOTE | 2017-05-05 13:12 | HOSPPROG ---
Hospitalist Progress Note Assessment/Plan: * Sacral fracture -no fall, likely from chronic steroid use, revwd neurosurg notes, discussed care with Dr Archer, could do sacroplasty but not now that has + blood cx -lido patch started, on chronic opioids, home meds restarted No diskitis would touch base with neuro surgery tomorrow to see if there is any intervention that can be done infectious Disease ordered MRI with contrast * left wrist drop * neurology input appreciated * seems to be getting better * MSSA bacteremia * MRIs were negative * Does have some skin changes -MIGUEL Ok * Infectious Disease is following * ABPA * Followed by [facility] * Will try to reorder her nebulizers that she was getting him before * On steroids but we decreased dose of 20 mg daily * hyperthyroidism * Probable Graves disease * Checking thyroid antibodies * start low-dose methimazole * social * [place] * attention deficit hyperactivity disorder and depression Subjective: Complaining of significant sacral pain Objective: Vital Signs Temp Pulse Resp BP Pulse Ox 36.6 C 82 20 129/82 H 96 05/05/17 07:25 05/05/17 09:19 05/05/17 09:19 05/05/17 09:19 05/05/17 09:19 Laboratory Results 05/05/17 11:25 05/03/17 04:21 05/04/17 05/05/17 05/06/17 05:59 05:59 05:59 Intake Total 2160 2448 Output Total 1251 1500 Balance 909 948 discussed with Infectious Disease - Physical Exam Constitutional: no apparent distress, appears nourished, not in pain Eyes: anicteric sclera, EOMI Ears, Nose, Mouth, Throat: moist mucous membranes, hearing normal Cardiovascular: regular rate and rhythym Respiratory: no respiratory distress Gastrointestinal: normoactive bowel sounds, soft, non-tender abdomen, no palpable masses Skin: warm Neurologic: AAOx3 Psychiatric: interacting appropriately, not anxious, not encephalopathic, thought process linear ICD10 Worksheet Patient Problems: Problems Problem Status Onset Lumbar radiculopathy Acute MSSA (methicillin susceptible Staphylococcus aureus) septicemia Acute Allergic bronchopulmonary aspergillosis Chronic Hepatitis C antibody positive in blood Chronic
[2017-05-05] MEDS: MONTELUKAST SODIUM 10 MG TAB PO SCH (18:35)
[2017-05-05] MEDS: ALBUTEROL 3 ML DEYVIAL IH PRN (20:46)
[2017-05-06] MEDS: oxyCODONE IR 15 MG TAB PO PRN ×4 (02:58→17:07)
[2017-05-06] MEDS: ceFAZolin 2 GM/DEXTROSE 100 ML IV SCH ×3 (03:06→20:21)
[2017-05-06] MEDS: SENNOSIDES/DOCUSATE SODIUM TAB PO SCH ×2 (08:15→20:15)
[2017-05-06] MEDS: CHOLECALCIFEROL VIT D3 2,000 UNITS TAB/CAP PO SCH (08:15)
[2017-05-06] MEDS: FLUoxetine 20 MG CAP PO SCH (08:15)
[2017-05-06] MEDS: METHIMAZOLE 5 MG TAB PO SCH (08:15)
[2017-05-06] MEDS: DIAZEPAM 2 MG TAB PO SCH ×2 (08:16→20:17)
[2017-05-06] MEDS: predniSONE 20 MG TAB PO SCH ×2 (08:16→10:45)
[2017-05-06] MEDS: ADDERALL 20 MG TAB PO SCH (08:16)
[2017-05-06] MEDS: ENOXAPARIN 40 MG/0.4 ML SYR SC SCH (08:16)
[2017-05-06] MEDS: VORICONAZOLE 200 MG TAB PO SCH ×2 (08:16→20:16)
[2017-05-06] MEDS: LIDOCAINE 5% 1 EA PATCH TD SCH (08:17)
[2017-05-06] MEDS ORDERED: SODIUM CL FOR INH 10% 15 ML VIAL.NEB IH PRN (08:18)
--- NOTE | 2017-05-06 08:18 | HOSPPROG ---
Hospitalist Progress Note Assessment/Plan: 51-year-old female with new MS SA bacteremia and a sacral fracture. Patient is new to me today - Sacral fracture -no fall, likely from chronic steroid use, revwd neurosurg notes, discussed care with Dr Archer, could do sacroplasty but not now that has + blood cx -lido patch started, on chronic opioids, home meds restarted No diskitis -no sacral plasty per Neurosurgery. There is also a 2nd lesion higher which may represent blood flow or edema. No biopsy is considered due to the bacteremia. -left wrist drop: Probable radial nerve palsy in seems to be improving this morning as she is improved with function in her wrist. -right forearm arm erythema and tenderness: This probably is in the area of a previous IV. An ultrasound will be ordered to rule out a DVT and fluctuance. - MSSA bacteremia: Probable scores is skin though the lung is possible as patient reports she had MSSA grown from her lung at [facility]. Follow-up blood cultures at 36 hours are currently negative. 4-6 weeks of IV antibiotics as planned. A PICC line will be ordered. -ABPA: We restarted her usual outpatient pulmonary care as prescribed by [facility]. Steroids have been restarted at 20 mg per day and the patient understands that she will need to take them daily because of adrenal suppression. - hyperthyroidism: This is unclear. Her TSH is low but her T3 is also low along with a only slightly elevated T4. Patient is acutely and chronically ill. She has no signs of hyper thyroidism with tachypnea tachycardia tremulousness or chest pain. Today I will stop the methimazole and follow the patient. I recommend a 4-6 week follow-up for thyroid function test when the patient is more stable. Thyroid antibodies are pending. -history of positive hepatitis C state. This probably dates from 9-10 years ago when the patient was using IV cocaine. The patient is a loose of about this part of her history and elusive as to whether she is intermittently using IV drugs now. For the time being will follow her liver enzymes and obtain a viral load. It is unlikely she has a positive viral load as her liver function tests are normal. - social: Housing it is being possibly developed an apartment for this patient. It is possible she could be discharged tomorrow with pain management orally. Her current pulmonary function is stable. She will need 4-6 weeks of IV antibiotics due to the findings in the sacrum on CT and MRI per infectious disease. Thus her disposition will have to be to an SNF while she receives IV antibiotics. She is simply unreliable. * [facility] a [facility] - attention deficit hyperactivity disorder and depression: I will stop the Adderall during this hospitalization as she seems slightly over stimulated. Plan: 4-6 weeks of IV antibiotics; continue pulmonary care; stop methimazole; obtain viral load studies; plan for SNF discharge. Patient seen and examined and discussed with Infectious Disease, Dr. Brisa Altamirano. Time 50 minutes Subjective: Reports significant sacral pain although the oral pain medication is managing her pain adequately until she attempts to move. Cough is in good control without significant sputum production. Objective: Vital Signs Temp Pulse Resp BP Pulse Ox 36.7 C 79 17 131/78 H 96 05/06/17 07:59 05/06/17 07:59 05/06/17 07:59 05/06/17 07:59 05/06/17 08:02 Laboratory Results 05/05/17 11:25 05/03/17 04:21 05/05/17 05/06/17 05/07/17 05:59 05:59 05:59 Intake Total 2448 868 Output Total 1500 Balance 948 868 - Time Spent With Patient Time Spent with Patient: greater than 35 minutes Time Spent with Patient: Greater than 35 minutes spent on this patients care, greater than 50% of time spent counseling, educating, and coordinating care regarding the above mentioned plan. - Pending Discharge Pending Discharge Within 24 Hours: No Pending Discharge Within 48 Hours: Yes Pending Discharge Date: 05/08/17 Pending Discharge Time: 11:00 - Physical Exam Constitutional: chronically ill appearing Eyes: PERRL Ears, Nose, Mouth, Throat: moist mucous membranes Cardiovascular: regular rate and rhythym, no murmur, rub, or gallop Respiratory: no respiratory distress, no rales or rhonchi Gastrointestinal: normoactive bowel sounds, soft, non-tender abdomen Genitourinary: no bladder fullness Skin: warm, other (A 6 x 12 cm area of raised erythema and possible fluctuance on the right forearm.) Musculoskeletal: generalized weakness Neurologic: AAOx3, CN II-XII Intact ICD10 Worksheet Patient Problems: Problems Problem Status Onset Lumbar radiculopathy Acute MSSA (methicillin susceptible Staphylococcus aureus) septicemia Acute Allergic bronchopulmonary aspergillosis Chronic Hepatitis C antibody positive in blood Chronic
[2017-05-06 09:11] LABS: THYROGLOBULIN ANTIBODY SCREEN <1.8 IU/mL (<4.0); THYROPEROXIDASE ANTIBODIES 0.3 IU/mL (<9.0)
[2017-05-06] MEDS: ACETYLCYSTEINE 10% 30 ML VIAL IH SCH ×2 (09:46→21:48)
[2017-05-06] MEDS: IPRATROPIUM/ALBUTEROL 3 ML DEYVIAL IH SCH (09:47)
[2017-05-06] MEDS: FLUTICASONE/SALMETER 250/50MCG DISKUS IH SCH ×2 (09:48→21:47)
[2017-05-06] MEDS: BECLOMETHASONE QVAR 80 MDI IH SCH ×2 (09:49→21:47)
--- NOTE | 2017-05-06 10:01 | NEUSURGPN ---
Assessment/Plan: Assessment: 51 yo F with sacral fracture on chronic steroids for pulmonary issues. Now with L wrist drop Plan: -blood cx x 2 + for MSSA, on abx per ID. sacroplasty was cancelled due to infection -pt with continued pain related to sacral fracture -Reviewed MRI brain/C/T spine - no concerning findings. No severe stenosis. xrays of C spine show stable hardware -Wrist drop. Likely radial nerve palsy. Recommend outpatient EMG in 3 weeks with Neurology -Pain management still an issue -PT/OT-CPM -seen with Dr Gambino -Call NS with any neuro changes or questions -Pt understands and agrees Subjective: Awake and alert, NAD. Eating/drinking and voiding. No f/c/n/v/d. Objective: AAO x 3, PERRLA/EOMI, no droop CN 2-12 grossly intact +lt touch 5/5 BUE/BLE = limited due to pain Neuro Check Frequency: per routine Urinary Catheter in Place: No - Physician Discussed Patient with : Immanuel Patient Seen by : Immanuel Neurosurgery Physical Exam - Vitals, I&O, Labs I and O 05/05/17 05/06/17 05/07/17 05:59 05:59 05:59 Intake Total 2448 868 Output Total 1500 750 Balance 948 868 -750 Intake: Oral (ml) 2200 500 IV Infused (ml) 248 368 ceFAZolin 2 GM/DEXTROSE 248 368 100 ml @ 200 mls/hr IV Q8H [facility] Rx#:[id number] Output: Urine (ml) 1500 750 Bedside Commode 1500 Toilet 750 Other: Number of Voids Toilet 4 1 Number of Stools Bedside Commode 1 Vital Signs Temp Pulse Resp BP Pulse Ox 36.7 C 79 17 131/78 H 96 05/06/17 07:59 05/06/17 07:59 05/06/17 07:59 05/06/17 07:59 05/06/17 08:02 Laboratory Results 05/05/17 11:25 05/03/17 04:21 ICD10 Worksheet Patient Problems: Problems Problem Status Onset Lumbar radiculopathy Acute MSSA (methicillin susceptible Staphylococcus aureus) septicemia Acute Allergic bronchopulmonary aspergillosis Chronic Hepatitis C antibody positive in blood Chronic
[2017-05-06] MEDS: Mometasone Furoate Nasal [Nasonex] 2 SPRAYS NASAL SCH (10:25)
[2017-05-06] MEDS: SODIUM CL FOR INH 10% 15 ML VIAL.NEB IH SCH ×2 (10:38→21:48)
--- NOTE | 2017-05-06 11:02 | PCMIDPN ---
Assessment/Plan: # MSSA bacteremia, 05/04 blood cx negative, some inflammatory MR abnormalities R hemisacrum assoc. with iliacus muscle that could refect infection. Suspect source of infection related to picking skin --continue high dose IV ancef --because of sacral findings may have to consider longer IV therapy, at minimum 4 weeks --okay to place PICC Line with plan to go to SNF # R arm thrombophlebitis and cellulitis - not documented on prior days --US today to eval # Remote h/o IVDU denies active use. Mom reports "pill addition" # H/O HCV, reports 2 neg VL in past meds ancef 2gm IV q8, #3 micro HIV neg 05/01 blood cx (2) MSSA 05/04 blood cx (2) NGTD Subjective: patient c/o R sided back pain no diarrhea Objective: Vital Signs Temp Pulse Resp BP Pulse Ox 36.7 C 79 17 131/78 H 96 05/06/17 07:59 05/06/17 07:59 05/06/17 07:59 05/06/17 07:59 05/06/17 08:02 Laboratory Results 05/05/17 11:25 05/03/17 04:21 05/05/17 05/06/17 05/07/17 05:59 05:59 05:59 Intake Total 2448 868 Output Total 1500 750 Balance 948 868 -750 ESR 43 MM/HR (0-30) H 05/05/17 11:25 C-Reactive Protein 33.2 mg/L (<10.0) H 05/05/17 11:25 Gen: tearful, mild distress related to pain poor dentition CV: RRR no murmur Chest: crackles R>L base Ext: R forearm erythema, tender clot Skin: scattered scabs, no peripheral stigmata of endocarditis - Time Spent With Patient Time Spent with Patient: greater than 35 minutes (reviewed plan of care with patient and mother; care coordinated with Dr Ramirez) Time Spent with Patient: Greater than 35 minutes spent on this patients care, greater than 50% of time spent counseling, educating, and coordinating care regarding the above mentioned plan. ICD10 Worksheet Patient Problems: Problems Problem Status Onset Lumbar radiculopathy Acute MSSA (methicillin susceptible Staphylococcus aureus) septicemia Acute Allergic bronchopulmonary aspergillosis Chronic Hepatitis C antibody positive in blood Chronic
[2017-05-06] MEDS ORDERED: ALTEPLASE 2 MG VIAL IVP PRN (11:36)
[2017-05-06] MEDS: MONTELUKAST SODIUM 10 MG TAB PO SCH (17:10)
[2017-05-06] MEDS: oxyCODONE CR 15 MG TAB PO SCH (20:18)
[2017-05-06] MEDS: PATCH REMOVAL 1 EA PATCH TD SCH (20:20)
[2017-05-07] MEDS: ceFAZolin 2 GM/DEXTROSE 100 ML IV SCH ×3 (04:15→19:50)
[2017-05-07 04:31] LABS: HEMATOCRIT 33.5 % (38.0-47.0)
[2017-05-07] MEDS: oxyCODONE IR 15 MG TAB PO PRN ×4 (04:48→20:06)
--- NOTE | 2017-05-07 07:52 | HOSPPROG ---
Hospitalist Progress Note Assessment/Plan: 51-year-old female with new MS SA bacteremia and a sacral fracture. - Sacral fracture with edema in the iliopsoas muscle above the fracture. Edema may represent infection yet cannot exclude infection now. Patient afebrile and normal WBC on ancef. -no fall, likely from chronic steroid use, revwd neurosurg notes, -lido patch started, on chronic opioids, home meds restarted; pain in good control. -No diskitis -no sacral plasty per Neurosurgery. -IV Abx for 4 weeks; maybe longer. Will need reimaging of area to excluded abscess within 2-4 weeks. -left wrist drop: Probable radial nerve palsy in seems to be improving this morning as she is improved with function in her wrist. -continue PT and brace -right forearm arm erythema and tenderness: This probably is in the area of a previous IV. No signs DVT by ultrasound -heat and elevation - MSSA bacteremia: Probable scores is skin though the lung is possible as patient reports she had MSSA grown from her lung at [facility]. Follow-up blood cultures at 36 hours are currently negative. 4-6 weeks of IV antibiotics as planned. PICC in left upper arm -ABPA: We restarted her usual outpatient pulmonary care as prescribed by [facility]. Steroids have been restarted at 20 mg per day and the patient understands that she will need to take them daily because of adrenal suppression. Discussed with Dr Galvez at [facility], reviewed her care. She is stable now and will continue all her therapies, decrease steroid to prednisone 20mg per day for 2 weeks, then 15mg per day. Dr Galvez will continue taper. -outpatient care by Dr Galvez at [phone] - hyperthyroidism: This is unclear. Her TSH is low but her T3 is also low along with a only slightly elevated T4. Patient is acutely and chronically ill. She has no signs of hyper thyroidism with tachypnea tachycardia tremulousness or chest pain. -no methimazole -outpatient thyroid function tests in 4-6 weeks -history of positive hepatitis C state. This probably dates from 9-10 years ago when the patient was using IV cocaine. The patient is a loose of about this part of her history and elusive as to whether she is intermittently using IV drugs now. For the time being will follow her liver enzymes and obtain a viral load. It is unlikely she has a positive viral load as her liver function tests are normal. -viral load studies pending - social: Housing it is being possibly developed an apartment for this patient. It is possible she could be discharged 05/07 or 05/08 with pain management orally. Her current pulmonary function is stable. She will need 4- 6 weeks of IV antibiotics due to the findings in the sacrum on CT and MRI per infectious disease. Thus her disposition will have to be to an SNF while she receives IV antibiotics. She is simply unreliable. * Lives in a chcf - attention deficit hyperactivity disorder and depression: I will stop the Adderall during this hospitalization as she seems slightly over stimulated. Plan: All pulmonary care, stop methimazole and have thyroid function, studies in 4-6 weeks, IV Ancef for the next 4 weeks, MRI of the sacrum and ischium in 2-4 weeks to restudy the area of edema and assess if there is evidence of a abscess In the psoas muscle. Discharged to SNF. Case discussed with Infectious Disease and with Radiology MRI reviewed on the PAC system and with Radiology. Case discussed with Dr. Austin at [facility] through the phone number as noted above Subjective: reports her pain is improving with the long-acting agents no complaints of shortness of breath chest pain or sputum production. Objective: Vital Signs Temp Pulse Resp BP Pulse Ox 36.4 C 87 18 137/85 H 96 05/07/17 04:00 05/07/17 04:00 05/07/17 04:00 05/07/17 04:00 05/07/17 04:00 Laboratory Results 05/07/17 04:18 05/03/17 04:21 05/06/17 05/07/17 05/08/17 05:59 05:59 05:59 Intake Total 868 1261 Output Total 2100 Balance 868 -839 Laboratory Tests 05/02/17 05/03/17 05:00 04:21 Hgb 12.6 11.1 L Patient afebrile, Hgb stable at 11 without bleeding, - Time Spent With Patient Time Spent with Patient: greater than 35 minutes Time Spent with Patient: Greater than 35 minutes spent on this patients care, greater than 50% of time spent counseling, educating, and coordinating care regarding the above mentioned plan. - Pending Discharge Pending Discharge Within 24 Hours: Yes Pending Discharge Within 48 Hours: Yes Pending Discharge Date: 05/08/17 Pending Discharge Time: 11:00 - Physical Exam Constitutional: no apparent distress, chronically ill appearing Eyes: PERRL Ears, Nose, Mouth, Throat: moist mucous membranes Cardiovascular: regular rate and rhythym, no murmur, rub, or gallop Respiratory: no respiratory distress, no rales or rhonchi Gastrointestinal: normoactive bowel sounds, soft, non-tender abdomen Genitourinary: no bladder fullness Skin: warm Musculoskeletal: generalized weakness, other ( Right sacral region and slightly above it is quite tender without signs of erythema swelling or edema.) Neurologic: AAOx3, CN II-XII Intact Psychiatric: interacting appropriately ICD10 Worksheet Patient Problems: Problems Problem Status Onset Hepatitis C antibody positive in blood Chronic Allergic bronchopulmonary aspergillosis Chronic MSSA (methicillin susceptible Staphylococcus aureus) septicemia Acute Lumbar radiculopathy Acute
--- NOTE | 2017-05-07 08:38 | NEUSURGPN ---
Assessment/Plan: Assessment: 51 yo F with sacral fracture on chronic steroids for pulmonary issues. Now with L wrist drop with neg MRI Plan: -blood cx x 2 + for MSSA, on abx per ID. sacroplasty was cancelled due to infection -pt with continued pain related to sacral fracture -Reviewed MRI brain/C/T spine - no concerning findings. No severe stenosis. xrays of C spine show stable hardware -Wrist drop. Likely radial nerve palsy. Recommend outpatient EMG in 2-3 weeks with Neurology -Pain management better today than yesterday. -PT/OT-CPM -seen with Dr Gambino -Call NS with any neuro changes or questions-NS to sign off at this time -Pt understands and agrees Subjective: No new complaints or concerns. Pt with continued lower back pain. No paredes/neck/ chest/abd or gu complaints. No f/c/n/v/d. Objective: AAO x 3, PERRLA/EOMI, no droop CN 2-12 grossly intact +lt touch 5/5 BUE/BLE = limited due to pain in BLE but better overall Neuro Check Frequency: per routine Urinary Catheter in Place: No - Physician Discussed Patient with : Immanuel Patient Seen by : Immanuel Neurosurgery Physical Exam - Vitals, I&O, Labs I and O 05/06/17 05/07/17 05/08/17 05:59 05:59 05:59 Intake Total 868 1261 Output Total 2100 Balance 868 -839 Intake: Oral (ml) 500 1150 IV Infused (ml) 368 111 ceFAZolin 2 GM/DEXTROSE 368 111 100 ml @ 200 mls/hr IV Q8H SILVIA Rx#:[id number] Output: Urine (ml) 2100 Toilet 2100 Other: Number of Voids Toilet 4 3 Vital Signs Temp Pulse Resp BP Pulse Ox 36.4 C 87 18 137/85 H 96 05/07/17 04:00 05/07/17 04:00 05/07/17 04:00 05/07/17 04:00 05/07/17 04:00 Laboratory Results 05/07/17 04:18 05/03/17 04:21 ICD10 Worksheet Patient Problems: Problems Problem Status Onset Lumbar radiculopathy Acute MSSA (methicillin susceptible Staphylococcus aureus) septicemia Acute Allergic bronchopulmonary aspergillosis Chronic Hepatitis C antibody positive in blood Chronic
[2017-05-07] MEDS: predniSONE 20 MG TAB PO SCH (08:55)
[2017-05-07] MEDS: DIAZEPAM 2 MG TAB PO SCH ×2 (08:55→21:23)
[2017-05-07] MEDS: LIDOCAINE 5% 1 EA PATCH TD SCH (08:55)
[2017-05-07] MEDS: CHOLECALCIFEROL VIT D3 2,000 UNITS TAB/CAP PO SCH (08:56)
[2017-05-07] MEDS: FLUoxetine 20 MG CAP PO SCH (08:57)
[2017-05-07] MEDS: oxyCODONE CR 15 MG TAB PO SCH ×2 (08:57→21:23)
[2017-05-07] MEDS: VORICONAZOLE 200 MG TAB PO SCH ×2 (08:57→22:41)
[2017-05-07] MEDS: ENOXAPARIN 40 MG/0.4 ML SYR SC SCH (08:58)
[2017-05-07] MEDS: SENNOSIDES/DOCUSATE SODIUM TAB PO SCH ×2 (09:00→21:23)
[2017-05-07] MEDS: BECLOMETHASONE QVAR 80 MDI IH SCH ×3 (09:57→22:16)
[2017-05-07] MEDS: IPRATROPIUM/ALBUTEROL 3 ML DEYVIAL IH SCH (09:57)
[2017-05-07] MEDS: FLUTICASONE/SALMETER 250/50MCG DISKUS IH SCH ×3 (09:57→22:16)
[2017-05-07] MEDS: SODIUM CL FOR INH 10% 15 ML VIAL.NEB IH SCH ×2 (09:58→22:17)
[2017-05-07] MEDS: ACETYLCYSTEINE 10% 30 ML VIAL IH SCH ×2 (09:59→22:17)
--- NOTE | 2017-05-07 10:53 | PCMIDPN ---
Assessment/Plan: Assessment/Plan: 1. MSSA bacteremia: - source likely skin picking with excoriations. -MRI hip noted with sacral fracture and inflammatory changes involving iliacus. Unable to exclud infectious component. no defined abscess -f/u blood cx from 05/04/17 ngtd -s/p picc line yesterday - On ancef therapy. Plan is for at least 4 weeks, possibly longer. -Will likely need f/u imaging at some point to follow up. -Plan is for SNF placement. -Care coordinated with Dr. Ramirez 2. Right forearm superficial thrombophebitis: - USG neg for DVt - warm compresses, elevation. -supportive care 3. HCV Ab positive: -waiting for RNA level 4. ABPA - followed by [facility]. Has been on/off treatment since 2011 -on [facility] per [facility]. Meds Ancef 2g q8- Subjective: Afebrile. Still c/o right hip pain. Denies increased shortness of breath. Bringing up some phlegm. Denies diarrhea. right forearm pain still present. excortiations on both forearms are mostly scabbed over. Objective: Vital Signs Temp Pulse Resp BP Pulse Ox 36.7 C 99 18 121/83 H 94 05/07/17 08:47 05/07/17 08:47 05/07/17 08:47 05/07/17 08:47 05/07/17 09:08 Laboratory Results 05/07/17 04:18 05/03/17 04:21 05/06/17 05/07/17 05/08/17 05:59 05:59 05:59 Intake Total 868 1261 Output Total 2100 Balance 868 -839 ESR 43 MM/HR (0-30) H 05/05/17 11:25 C-Reactive Protein 33.2 mg/L (<10.0) H 05/05/17 11:25 - Physical Exam General Appearance: alert, no apparent distress Respiratory: lungs clear Cardiac/Chest: regular rate, rhythm Extremities: swelling (right forearm swelling with erythema noted. mildly warm.) Abdomen: normal bowel sounds, non-tender, soft, No distended Skin: other (multiple scabbed excoriations noted on both forearms, upper chest. no vesicles, pustules noted. ) ICD10 Worksheet Patient Problems: Problems Problem Status Onset Lumbar radiculopathy Acute MSSA (methicillin susceptible Staphylococcus aureus) septicemia Acute Allergic bronchopulmonary aspergillosis Chronic Hepatitis C antibody positive in blood Chronic
--- NOTE | 2017-05-07 11:09 | PDIAF ---
- Diagnosis Diagnosis: mssa bacteremia Code Status: Full Code - Medication Management Discharge Medications: Medications to Continue on Transfer Beclomethasone Qvar 80 [Qvar 80 (*)] 2 puffs IH BIDI 08/02/16 [Last Taken 09:00] Montelukast Sodium [Singulair 10 mg (*)] 10 mg PO DAILY@1800 08/02/16 [Last Taken 04/29/17] Diazepam [Valium 5 MG (*)] 5 mg PO TID PRN #15 tab 04/27/17 [Last Taken 04/30/17 ] Fluoxetine HCl [Prozac 40 mg] 40 mg PO DAILY 04/27/17 [Last Taken 04/29/17] Mometasone Furoate Nasal [Nasonex] 2 sprays NASAL DAILY 04/27/17 [Last Taken ] Voriconazole [Vfend 200MG (*)] 200 mg PO BID 04/27/17 [Last Taken 04/30/17 09:00 ] predniSONE [predniSONE] 30 mg PO DAILY 04/27/17 [Last Taken 04/30/17] Albuterol [Proventil Inhaler HFA (*)] 1 - 2 puffs IH DAILY PRN 05/01/17 [Last Taken Unknown] Dextroamphetamine/Amphetamine [Adderall 30 mg Tablet] 30 mg PO BID 05/01/17 [ Last Taken 04/30/17 09:00] Herbals/Supplements -Info Only 1 ea PO DAILY 05/01/17 [Last Taken Unknown] Ipratropium/Albuterol [Duoneb (*)] 3 ml IH BID 05/01/17 [Last Taken 04/29/17] oxyCODONE IR [Oxycodone Ir (*)] 15 - 30 mg PO Q4-6PRN PRN 05/01/17 [Last Taken 04/30/17 21:00] Acetylcysteine 10% [Mucomyst 10% 30 ML (*)] 2 ml IH BID 05/03/17 [Last Taken Unknown] Acetylcysteine 10% [Mucomyst 10% 30 ML (*)] 2 ml IH BID PRN 05/03/17 [Last Taken Unknown] FLUTICASONE/SALMETEROL [ADVAIR HFA 230-21 MCG INHALER] 1 puffs IH BID 05/03/17 [ Last Taken Unknown] Ipratropium/Albuterol [Duoneb (*)] 3 ml IH BID PRN 05/03/17 [Last Taken Unknown] 7% Sodium Chloride 1 ea IH BID 05/05/17 [Last Taken Unknown] 7% Sodium Chloride 1 ea IH BID PRN 05/05/17 [Last Taken Unknown] Assisted Antibiotics: ancef 2g IV q8 Assisted Antibiotic Stop Date: 06/05/17 Discharge Medications: Refer to the Discharge Home Medication list for PRN reason. PICC Care - Routine: Yes - Labs/Radiology CBC Date: 05/13/17 (q mondays) CMP Date: 05/13/17 (q mondays) CRP Date: 05/13/17 (q mondays) Call or Fax Lab and Imaging Results to: FAx to Dr. [phone] - Follow Up Care Current Providers and Referrals: [facility] [Other] - As per Instructions Brisa Altamirano MD [Medical Doctor] - 05/14/17 10:30 am (f/u with Dr. Altamirano ( Infectious Diseases) at 10:30am. Check in time is at: 10:10am. Thanks.)
[2017-05-07] MEDS: Mometasone Furoate Nasal [Nasonex] 2 SPRAYS NASAL SCH (15:00)
[2017-05-07] MEDS: MONTELUKAST SODIUM 10 MG TAB PO SCH (18:52)
[2017-05-07] MEDS: ALBUTEROL 3 ML DEYVIAL IH PRN (22:17)
[2017-05-07] MEDS: PATCH REMOVAL 1 EA PATCH TD SCH (22:43)
[2017-05-08] MEDS: ceFAZolin 2 GM/DEXTROSE 100 ML IV SCH ×3 (03:39→20:30)
[2017-05-08 05:20] LABS: % IMMATURE GRANULYOCYTES 1.1 % (0.0-1.1); ADD DIFF? NO; ADD MORPH? NO; ADD SCAN? NO; ATYPICAL LYMPHOCYTE FLAG 10 (0-99); FRAGMENT RBC FLAG 0 (0-99); HEMOGLOBIN 11.3 g/dL (12.6-16.3); LEFT SHIFT FLG 0 (0-99); LIPEMIA HEMOLYSIS FLAG 80 (0-99); MEAN CELL HEMOGLOBIN 29.7 pg (27.9-34.1); MEAN CELL HEMOGLOBIN CONCENTR. 32.3 g/dL (32.4-36.7); MEAN CELL VOLUME 91.9 fL (81.5-99.8); MEAN PLATELET VOLUME 10.1 fL (8.7-11.7); PLATELET CLUMPS FLAG 0 (0-99); PLATELET COUNT 262 10^3/uL (150-400); RED BLOOD CELL COUNT 3.81 10^6/uL (4.18-5.33); RED CELL DISTRIBUTION WIDTH 13.9 % (11.5-15.2)
[2017-05-08 05:44] LABS: ANION GAP 10 mEq/L (8-16); CARBON DIOXIDE 27 mEq/l (22-31); CHLORIDE 100 mEq/L (97-110); CREATININE 0.7 mg/dL (0.6-1.0); GLOMERULAR FILTRATION RATE > 60; GLUCOSE 75 mg/dL (70-100); POTASSIUM 4.7 mEq/L (3.5-5.2); SODIUM 137 mEq/L (134-144)
[2017-05-08] MEDS: oxyCODONE IR 15 MG TAB PO PRN ×4 (07:55→20:31)
[2017-05-08] MEDS: FLUTICASONE/SALMETER 250/50MCG DISKUS IH SCH ×2 (08:48→21:00)
[2017-05-08] MEDS: SODIUM CL FOR INH 10% 15 ML VIAL.NEB IH SCH ×2 (08:48→21:01)
[2017-05-08] MEDS: IPRATROPIUM/ALBUTEROL 3 ML DEYVIAL IH SCH (08:48)
[2017-05-08] MEDS: ACETYLCYSTEINE 10% 30 ML VIAL IH SCH ×2 (08:48→21:01)
[2017-05-08] MEDS: BECLOMETHASONE QVAR 80 MDI IH SCH ×2 (08:48→21:00)
[2017-05-08] MEDS: ENOXAPARIN 40 MG/0.4 ML SYR SC SCH (09:42)
[2017-05-08] MEDS: LIDOCAINE 5% 1 EA PATCH TD SCH (09:43)
[2017-05-08] MEDS: VORICONAZOLE 200 MG TAB PO SCH ×2 (09:43→20:31)
[2017-05-08] MEDS: CHOLECALCIFEROL VIT D3 2,000 UNITS TAB/CAP PO SCH (09:44)
[2017-05-08] MEDS: SENNOSIDES/DOCUSATE SODIUM TAB PO SCH ×2 (09:46→20:36)
[2017-05-08] MEDS: FLUoxetine 20 MG CAP PO SCH (09:46)
[2017-05-08] MEDS: predniSONE 20 MG TAB PO SCH (09:46)
[2017-05-08] MEDS: oxyCODONE CR 15 MG TAB PO SCH ×2 (09:46→23:05)
[2017-05-08] MEDS: DIAZEPAM 2 MG TAB PO SCH ×2 (09:46→23:05)
[2017-05-08] MEDS: ADDERALL 20 MG TAB PO SCH ×2 (11:59→16:56)
--- NOTE | 2017-05-08 14:54 | HOSPPROG ---
Hospitalist Progress Note Assessment/Plan: 51-year-old female with MSSA bacteremia and a sacral fracture. - Sacral fracture with edema in the iliopsoas muscle above the fracture. Edema may represent infection yet cannot exclude infection now. Patient afebrile and normal WBC on ancef. -no fall, likely from chronic steroid use, revwd neurosurg notes, -lido patch started, on chronic opioids, home meds restarted; pain in good control. -No diskitis -no sacral plasty per Neurosurgery. -IV Abx for 4 weeks; maybe longer. Will need reimaging of area to excluded abscess within 2-4 weeks. -left wrist drop: Probable radial nerve palsy in seems to be improving this morning as she is improved with function in her wrist. -continue PT and brace -right forearm arm erythema and tenderness: This probably is in the area of a previous IV. No signs DVT by ultrasound -heat and elevation - MSSA bacteremia: Probable scores is skin though the lung is possible as patient reports she had MSSA grown from her lung at [facility]. Follow-up blood cultures at 36 hours are currently negative. 4-6 weeks of IV antibiotics as planned. PICC in left upper arm -ABPA: We restarted her usual outpatient pulmonary care as prescribed by [facility]. Steroids have been restarted at 20 mg per day and the patient understands that she will need to take them daily because of adrenal suppression. Discussed with Dr Galvez at [facility], reviewed her care. She is stable now and will continue all her therapies, decrease steroid to prednisone 20mg per day for 2 weeks, then 15mg per day. Dr Galvez will continue taper. -outpatient care by Dr Galvez at [phone] - hyperthyroidism: This is unclear. Her TSH is low but her T3 is also low along with a only slightly elevated T4. Patient is acutely and chronically ill. She has no signs of hyper thyroidism with tachypnea tachycardia tremulousness or chest pain. -no methimazole -outpatient thyroid function tests in 4-6 weeks -history of positive hepatitis C state. This probably dates from 9-10 years ago when the patient was using IV cocaine. The patient is a loose of about this part of her history and elusive as to whether she is intermittently using IV drugs now. For the time being will follow her liver enzymes and obtain a viral load. It is unlikely she has a positive viral load as her liver function tests are normal. -viral load studies pending - social: Housing it is being possibly developed an apartment for this patient. It is possible she could be discharged 05/07 or 05/08 with pain management orally. Her current pulmonary function is stable. She will need 4- 6 weeks of IV antibiotics due to the findings in the sacrum on CT and MRI per infectious disease. Thus her disposition will have to be to an SNF while she receives IV antibiotics. She is simply unreliable. * Lives in a fdc - attention deficit hyperactivity disorder and depression: I will stop the Adderall during this hospitalization as she seems slightly over stimulated. Plan: All pulmonary care, stop methimazole and have thyroid function, studies in 4-6 weeks, IV Ancef for the next 4 weeks, MRI of the sacrum and ischium in 2-4 weeks to restudy the area of edema and assess if there is evidence of a abscess In the psoas muscle. Discharged to SNF when bed available Subjective: reports back pain. no fever or chills. requests to have adderall restarted Objective: Vital Signs Temp Pulse Resp BP Pulse Ox 36.8 C 108 H 20 124/77 H 96 05/08/17 12:03 05/08/17 12:03 05/08/17 12:03 05/08/17 12:03 05/08/17 12:03 Laboratory Results 05/08/17 03:30 05/08/17 03:30 05/07/17 05/08/17 05/09/17 05:59 05:59 05:59 Intake Total 1261 1150 Output Total 2100 1300 Balance -839 -150 - Physical Exam Constitutional: no apparent distress, appears nourished, not in pain Cardiovascular: regular rate and rhythym, no murmur, rub, or gallop Respiratory: no respiratory distress, no rales or rhonchi, clear to auscultation Neurologic: AAOx3, CN II-XII Intact, No facial droop ICD10 Worksheet Patient Problems: Problems Problem Status Onset Hepatitis C antibody positive in blood Chronic Allergic bronchopulmonary aspergillosis Chronic MSSA (methicillin susceptible Staphylococcus aureus) septicemia Acute Lumbar radiculopathy Acute
[2017-05-08] MEDS: Mometasone Furoate Nasal [Nasonex] 2 SPRAYS NASAL SCH (18:10)
[2017-05-08] MEDS: MONTELUKAST SODIUM 10 MG TAB PO SCH (18:45)
[2017-05-08] MEDS: POLYETHYLENE GLYCOL 3350 17 GM PKT PO PRN (20:45)
[2017-05-08] MEDS: ALBUTEROL 3 ML DEYVIAL IH PRN (21:01)
[2017-05-09] MEDS: PATCH REMOVAL 1 EA PATCH TD SCH ×2 (01:15→19:55)
[2017-05-09] MEDS: oxyCODONE IR 15 MG TAB PO PRN ×3 (02:51→15:43)
[2017-05-09] MEDS: ceFAZolin 2 GM/DEXTROSE 100 ML IV SCH ×3 (04:10→19:59)
[2017-05-09 04:22] LABS: HEMATOCRIT 37.5 % (38.0-47.0)
[2017-05-09] MEDS: ENOXAPARIN 40 MG/0.4 ML SYR SC SCH (08:38)
[2017-05-09] MEDS: VORICONAZOLE 200 MG TAB PO SCH ×2 (08:39→19:52)
[2017-05-09] MEDS: CHOLECALCIFEROL VIT D3 2,000 UNITS TAB/CAP PO SCH (08:39)
[2017-05-09] MEDS: oxyCODONE CR 15 MG TAB PO SCH (08:39)
[2017-05-09] MEDS: FLUoxetine 20 MG CAP PO SCH (08:39)
[2017-05-09] MEDS: ADDERALL 20 MG TAB PO SCH ×2 (08:40→15:38)
[2017-05-09] MEDS: DIAZEPAM 2 MG TAB PO SCH (08:40)
[2017-05-09] MEDS: SENNOSIDES/DOCUSATE SODIUM TAB PO SCH ×2 (08:41→19:52)
[2017-05-09] MEDS: LIDOCAINE 5% 1 EA PATCH TD SCH (08:45)
[2017-05-09] MEDS: predniSONE 20 MG TAB PO SCH (08:46)
[2017-05-09] MEDS: Mometasone Furoate Nasal [Nasonex] 2 SPRAYS NASAL SCH (08:46)
[2017-05-09] MEDS: ACETYLCYSTEINE 10% 30 ML VIAL IH SCH ×2 (08:49→20:58)
[2017-05-09] MEDS: FLUTICASONE/SALMETER 250/50MCG DISKUS IH SCH ×2 (08:50→20:58)
[2017-05-09] MEDS: IPRATROPIUM/ALBUTEROL 3 ML DEYVIAL IH SCH (08:50)
[2017-05-09] MEDS: BECLOMETHASONE QVAR 80 MDI IH SCH ×2 (08:50→20:58)
[2017-05-09] MEDS: SODIUM CL FOR INH 10% 15 ML VIAL.NEB IH SCH ×2 (08:50→20:58)
[2017-05-09] MEDS: POLYETHYLENE GLYCOL 3350 17 GM PKT PO PRN (11:19)
--- NOTE | 2017-05-09 13:06 | HOSPPROG ---
Hospitalist Progress Note Assessment/Plan: 51-year-old female with MSSA bacteremia and a sacral fracture. - Sacral fracture with edema in the iliopsoas muscle above the fracture. Edema may represent infection yet cannot exclude infection now. Patient afebrile and normal WBC on ancef. -CONTINUES TO HAVE SEVERE UNCONTROLLED PAIN -> WILL INCREASE OXY CR TO 20MG BID -no fall, likely from chronic steroid use, revwd neurosurg notes, -lido patch started, on chronic opioids, home meds restarted; pain in good control. -No diskitis -no sacral plasty per Neurosurgery. -IV Abx for 4 weeks; maybe longer. Will need reimaging of area to excluded abscess within 2-4 weeks. -left wrist drop: Probable radial nerve palsy in seems to be improving this morning as she is improved with function in her wrist. -continue PT and brace -right forearm arm erythema and tenderness: This probably is in the area of a previous IV. No signs DVT by ultrasound -heat and elevation - MSSA bacteremia: Probable scores is skin though the lung is possible as patient reports she had MSSA grown from her lung at [facility]. Follow-up blood cultures at 36 hours are currently negative. 4-6 weeks of IV antibiotics as planned. PICC in left upper arm -ABPA: We restarted her usual outpatient pulmonary care as prescribed by [facility]. Steroids have been restarted at 20 mg per day and the patient understands that she will need to take them daily because of adrenal suppression. Discussed with Dr Galvez at [facility], reviewed her care. She is stable now and will continue all her therapies, decrease steroid to prednisone 20mg per day for 2 weeks, then 15mg per day. Dr Galvez will continue taper. -outpatient care by Dr Galvez at [phone] - hyperthyroidism: This is unclear. Her TSH is low but her T3 is also low along with a only slightly elevated T4. Patient is acutely and chronically ill. She has no signs of hyper thyroidism with tachypnea tachycardia tremulousness or chest pain. -no methimazole -outpatient thyroid function tests in 4-6 weeks -history of positive hepatitis C state. This probably dates from 9-10 years ago when the patient was using IV cocaine. SHE DENIES ANY HISOTRY OF IV DRUG ABUSE TO ME. For the time being will follow her liver enzymes and obtain a viral load. It is unlikely she has a positive viral load as her liver function tests are normal. -viral load studies pending - social: Housing it is being possibly developed an apartment for this patient. It is possible she could be discharged 05/07 or 05/08 with pain management orally. Her current pulmonary function is stable. She will need 4- 6 weeks of IV antibiotics due to the findings in the sacrum on CT and MRI per infectious disease. Thus her disposition will have to be to an SNF while she receives IV antibiotics. She is simply unreliable. * Lives in a care home - attention deficit hyperactivity disorder and depression: I will stop the Adderall during this hospitalization as she seems slightly over stimulated. Plan: All pulmonary care, stop methimazole and have thyroid function, studies in 4-6 weeks, IV Ancef for the next 4 weeks, MRI of the sacrum and ischium in 2-4 weeks to restudy the area of edema and assess if there is evidence of a abscess In the psoas muscle. Discharged to snf vs home once all options are explored Subjective: reports severe low back pain that is currently uncontrolled with current dose of oxycodone. Still needing touse breakthrough oxyir frequently which helps. Objective: Vital Signs Temp Pulse Resp BP Pulse Ox 36.8 C 108 H 18 120/84 H 94 05/09/17 08:00 05/09/17 09:02 05/09/17 09:02 05/09/17 08:00 05/09/17 09:02 Laboratory Results 05/09/17 04:00 05/08/17 03:30 05/08/17 05/09/17 05/10/17 05:59 05:59 05:59 Intake Total 1150 1900 Output Total 1300 300 Balance -150 1600 - Physical Exam Constitutional: uncomfortable Cardiovascular: regular rate and rhythym, no murmur, rub, or gallop Respiratory: no respiratory distress, no rales or rhonchi, clear to auscultation Gastrointestinal: normoactive bowel sounds, soft, non-tender abdomen, no palpable masses ICD10 Worksheet Patient Problems: Problems Problem Status Onset Hepatitis C antibody positive in blood Chronic Allergic bronchopulmonary aspergillosis Chronic MSSA (methicillin susceptible Staphylococcus aureus) septicemia Acute Lumbar radiculopathy Acute
[2017-05-09] MEDS ORDERED: DIAZEPAM 5 MG TAB PO PRN (13:07)
[2017-05-09 13:42] LABS: HCV QT RNA PCR < 1 IU/mL (<15)
--- NOTE | 2017-05-09 17:10 | PCMIDPN ---
Assessment/Plan: Assessment: MSSA bacteremia-probable skin source. Will continue her cefazolin therapy. Repeat blood cultures remain negative. Echocardiogram without clear vegetation. Probable 4 weeks of treatment duration. Plan: 1. Repeat blood cultures 2. Continue cefazolin 2 g IV q.8 hours 3. Follow clinical course. Subjective: Patient looks and feels good. Walking around the room without issue. No further fevers or chills. Objective: cefazolin #7 Vital Signs Temp Pulse Resp BP Pulse Ox 36.4 C 98 16 112/78 99 05/09/17 16:57 05/09/17 16:57 05/09/17 16:57 05/09/17 16:57 05/09/17 16:57 Laboratory Results 05/09/17 04:00 05/08/17 03:30 05/08/17 05/09/17 05/10/17 05:59 05:59 05:59 Intake Total 1150 1900 Output Total 1300 300 Balance -150 1600 ESR 43 MM/HR (0-30) H 05/05/17 11:25 C-Reactive Protein 33.2 mg/L (<10.0) H 05/05/17 11:25 - Physical Exam General Appearance: WD/WN, alert, no apparent distress, non-toxic Respiratory: lungs clear, normal breath sounds, No respiratory distress Cardiac/Chest: regular rate, rhythm, No tachycardia Skin: normal color, warm/dry, No rash Neuro/Psych: alert, normal mood/affect, oriented x 3 ICD10 Worksheet Patient Problems: Problems Problem Status Onset Lumbar radiculopathy Acute MSSA (methicillin susceptible Staphylococcus aureus) septicemia Acute Allergic bronchopulmonary aspergillosis Chronic Hepatitis C antibody positive in blood Chronic
[2017-05-09] MEDS: MONTELUKAST SODIUM 10 MG TAB PO SCH (18:24)
[2017-05-09] MEDS: BISACODYL 10 MG SUPP PR PRN (18:27)
[2017-05-09] MEDS: ALBUTEROL 3 ML DEYVIAL IH PRN (20:58)
[2017-05-10] VITALS: RESP 16
[2017-05-10] MEDS: oxyCODONE IR 15 MG TAB PO PRN ×3 (00:05→13:22)
[2017-05-10] MEDS: ceFAZolin 2 GM/DEXTROSE 100 ML IV SCH ×2 (03:29→11:44)
[2017-05-10 07:30] VITALS: BP 115/71; TEMP 98.2; O2SAT 97
[2017-05-10] MEDS ORDERED: HYDROmorphONE/DILAUDID 1 MG/ML SYR IVP PRN (08:05)
[2017-05-10] MEDS: predniSONE 20 MG TAB PO SCH (08:14)
[2017-05-10] MEDS: SENNOSIDES/DOCUSATE SODIUM TAB PO SCH (08:14)
[2017-05-10] MEDS: CHOLECALCIFEROL VIT D3 2,000 UNITS TAB/CAP PO SCH (08:14)
[2017-05-10] MEDS: ENOXAPARIN 40 MG/0.4 ML SYR SC SCH (08:15)
[2017-05-10] MEDS: VORICONAZOLE 200 MG TAB PO SCH (08:15)
[2017-05-10] MEDS: ADDERALL 20 MG TAB PO SCH (08:15)
[2017-05-10] MEDS: FLUoxetine 20 MG CAP PO SCH (08:15)
[2017-05-10] MEDS: Mometasone Furoate Nasal [Nasonex] 2 SPRAYS NASAL SCH (08:17)
[2017-05-10] MEDS: BISACODYL 10 MG SUPP PR PRN (08:18)
[2017-05-10] MEDS: IPRATROPIUM/ALBUTEROL 3 ML DEYVIAL IH SCH (08:50)
[2017-05-10] MEDS: ACETYLCYSTEINE 10% 30 ML VIAL IH SCH (08:51)
[2017-05-10] MEDS: SODIUM CL FOR INH 10% 15 ML VIAL.NEB IH SCH (08:51)
[2017-05-10] MEDS: BECLOMETHASONE QVAR 80 MDI IH SCH (08:53)
[2017-05-10] MEDS: FLUTICASONE/SALMETER 250/50MCG DISKUS IH SCH (08:53)
[2017-05-10 09:06] VITALS: PULSE 78
--- NOTE | 2017-05-10 11:20 | PDIAF ---
- Diagnosis Diagnosis: mssa bacteremia Code Status: Full Code - Medication Management Discharge Medications: Medications to Continue on Transfer Beclomethasone Qvar 80 [Qvar 80 (*)] 2 puffs IH BIDI 08/02/16 [Last Taken 09:00] Montelukast Sodium [Singulair 10 mg (*)] 10 mg PO DAILY@1800 08/02/16 [Last Taken 04/29/17] Fluoxetine HCl [Prozac 40 mg] 40 mg PO DAILY 04/27/17 [Last Taken 04/29/17] Mometasone Furoate Nasal [Nasonex] 2 sprays NASAL DAILY 04/27/17 [Last Taken ] Voriconazole [Vfend 200MG (*)] 200 mg PO BID 04/27/17 [Last Taken 04/30/17 09:00 ] Albuterol [Proventil Inhaler HFA (*)] 1 - 2 puffs IH DAILY PRN 05/01/17 [Last Taken Unknown] Dextroamphetamine/Amphetamine [Adderall 30 mg Tablet] 30 mg PO BID 05/01/17 [ Last Taken 04/30/17 09:00] Herbals/Supplements -Info Only 1 ea PO DAILY 05/01/17 [Last Taken Unknown] Ipratropium/Albuterol [Duoneb (*)] 3 ml IH BID 05/01/17 [Last Taken 04/29/17] Acetylcysteine 10% [Mucomyst 10% 30 ML (*)] 2 ml IH BID 05/03/17 [Last Taken Unknown] Acetylcysteine 10% [Mucomyst 10% 30 ML (*)] 2 ml IH BID PRN 05/03/17 [Last Taken Unknown] FLUTICASONE/SALMETEROL [ADVAIR HFA 230-21 MCG INHALER] 1 puffs IH BID 05/03/17 [ Last Taken Unknown] Ipratropium/Albuterol [Duoneb (*)] 3 ml IH BID PRN 05/03/17 [Last Taken Unknown] 7% Sodium Chloride 1 ea IH BID 05/05/17 [Last Taken Unknown] 7% Sodium Chloride 1 ea IH BID PRN 05/05/17 [Last Taken Unknown] Acetaminophen [Tylenol 325mg (*)] 650 mg PO Q4HRS PRN #0 tab 05/10/17 [Last Taken Unknown] Acetylcysteine 10% [Mucomyst 10% 30 ML (*)] 2 ml IH BID vial 05/10/17 [Last Taken Unknown] Diazepam [Valium 5 MG (*)] 2.5 mg PO TID PRN #0 tab 05/10/17 [Last Taken Unknown ] Fluticasone/Salmeter 250/50Mcg [Advair 250/50 (*)] 1 puffs IH BID disk [Last Taken Unknown] Sennosides/Docusate Sodium [Senokot-S] 1 - 2 tab PO BID tab 05/10/17 [Last Taken Unknown] ceFAZolin 2 GM/DEXTROSE [Ancef 2 gm (Premix)] 2 gm IV Q8H #1 bag 05/10/17 [Last Taken Unknown] oxyCODONE CR [Oxycontin] 20 mg PO BID tab 05/10/17 [Last Taken Unknown] oxyCODONE IR [Oxycodone Ir (*)] 15 - 30 mg PO Q4 PRN #0 tab 05/10/17 [Last Taken Unknown] predniSONE 20 mg PO DAILY tablet 05/10/17 [Last Taken Unknown] 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 PICC Care - Routine: Yes - Orders Services needed: Registered Nurse, Physical Therapy, Occupational Therapy Diet Recommendation: no restrictions on diet Diet Texture: Regular Texture Diet - Labs/Radiology CBC Date: 05/13/17 (q mondays) CMP Date: 05/13/17 (q mondays) CRP Date: 05/13/17 (q mondays) Call or Fax Lab and Imaging Results to: FAx to Dr. AltamiranoOcducz-[phone] - Follow Up Care Current Providers and Referrals: [facility] [Other] - As per Instructions Brisa Altamirano MD [Medical Doctor] - 05/14/17 10:30 am (f/u with Dr. Altamirano ( Infectious Diseases) at 10:30am. Check in time is at: 10:10am. Thanks.)
[2017-05-10] MEDS: LIDOCAINE 5% 1 EA PATCH TD SCH (11:43)
--- NOTE | 2017-05-10 13:19 | GDS ---
[f rep st] DISCHARGE SUMMARY DISCHARGE DIAGNOSES: 1. Methicillin-sensitive staphylococcus aureus bacteremia. 2. Sacral fracture. 3. Left wrist drop. 4. Hepatitis C. 5. Hyperthyroidism. 6. ABPA/allergic bronchopulmonary aspergillosis. 7. Attention deficit hyperactivity disorder. 8. Depression. CONSULTANTS: Infectious Disease, Neurosurgery. HOSPITAL COURSE AND STAY BY PROBLEM: 1. MSSA bacteremia, thought to be due to skin picking with excoriations: The patient was found to have positive blood cultures for MSSA. She has been seen by Infectious Disease who are recommending 4 week treatment with Ancef 2 g q.8 hours to be administered through 06/05/2017. 2. Sacral fracture: On MRI, the patient was found to have a sacral fracture. She was seen by Neur osurgery, who did not think she needed any further intervention. She should have a repeat MRI of he r sacrum and ischium in 2-4 weeks to ensure there is no evidence of abscess in the psoas muscle. 3. History of ABPA: The patient is followed by Dr. Galvez at [facility]. She should decrease her prednisone to 20 mg a day for 2 weeks, then tapered to 15 mg after that. She should follow up w lizbet Galvez on an outpatient basis. 4. Hyperthyroidism: Her TSH was low, but her TS3 and T4 were elevated. She has no signs of hypert hyroidism. She should have repeat thyroid studies done in 4-6 weeks. PHYSICAL EXAM: VITAL SIGNS: On day of discharge, blood pressure 115/71, pulse 78, respiratory rate 16, O2 sat 97% on room air, temperature afebrile. GENERAL: No acute distress. HEART: S1, S2. L UNGS: Clear. ABDOMEN: Soft. LABS AND STUDIES: MRI of the lumbar spine and lower extremity MRI were done on 05/05, refer to repo rt for full details. A brain MRI and cervical and thoracic MRIs done on 05/02/2017. DISCHARGE MEDICATIONS: Please refer to discharge medication reconciliation in [facility] for details. DISCHARGE INSTRUCTIONS: The patient will be transferred to [facility], where she shoul d continue her antibiotics as ordered by the [facility]. She should have a repeat MRI of her sacrum and ischium in 2-4 weeks to ensure there is no evidence of abscess. She should have repeat thyroid studies done in 4-6 weeks. For her wrist drop, would recommend outpatien t EMGs with Neurology to be done at some point. She should also be weaned off of the oxycodone cont rolled release over the next few weeks. Greater than 30 minutes were spent on the discharge of this patient. /[id number]/MODL
== END 2017-05-10 13:50 | DRG 543 ==
LOC: EDUNIT# → F1N 05-01 08:44 → OBSVTOIN 05-02 09:23
PROVIDERS: ADMIT Student in an Organized Health Care Education/Training Program; ATTEND Student in an Organized Health Care Education/Training Program
PROC: 02HV33Z Insertion of Infusion Device into Superior Vena Cava, Percutaneous Approach (ICD-10-PCS; principal; 2017-05-06)
DX: M84.48XA Pathological fracture, other site, initial encounter for fracture (principal); T38.0X5A Adverse effect of glucocorticoids and synthetic analogues, initial encounter; R78.81 Bacteremia; B95.61 Methicillin susceptible Staphylococcus aureus infection as the cause of diseases classified elsewhere; G56.32 Lesion of radial nerve, left upper limb; E55.9 Vitamin D deficiency, unspecified; B44.81 Allergic bronchopulmonary aspergillosis; E05.90 Thyrotoxicosis, unspecified without thyrotoxic crisis or storm; J45.909 Unspecified asthma, uncomplicated; B19.20 Unspecified viral hepatitis C without hepatic coma; F90.9 Attention-deficit hyperactivity disorder, unspecified type; Z79.52 Long term (current) use of systemic steroids; Z98.1 Arthrodesis status
CPT/HCPCS: 80307; 84445-90; 84480-90; 86376-90; 86800-90; 96374; 97110-GO; 97112-GO; 97116-GP; 97161-GP; 97166-GO; 97530-GO; 97530-GP; 97535-GO; A9585; C1751; G0378; G0472; G0480; J0690; J1170; J1650; J2060; J3010; J3370

== ENCOUNTER 2017-05-23 17:31 | Inpatient (IN) | payer MEDICAID ==
[2017-05-23] MEDS ORDERED: ACETAMINOPHEN 325 MG TAB PO PRN (20:53)
[2017-05-23] MEDS ORDERED: ONDANSETRON 4 MG/2 ML VIAL IVP PRN (20:53)
[2017-05-23] MEDS ORDERED: FUROSEMIDE 20 MG/2 ML VIAL IVP ONE (20:53)
--- NOTE | 2017-05-23 21:10 | GHP ---
[f rep st] HISTORY AND PHYSICAL DATE OF ADMISSION: 05/23/2017 CHIEF COMPLAINT: Shortness of breath and rapid heart rate. HISTORY OF PRESENT ILLNESS: This is a 51-year-old female, who was discharged from [facility] on 05/10/2017 with a diagnosis of MSSA bacteremia, sacral fracture, hepatitis C, hyperthyroi dism, allergic bronchopulmonary aspergillosis, depression, and attention deficit disorder. She was discharged to complete IV antibiotics through 06/05/2017, has been followed by Dr. Altamirano. She was initially discharged to a nursing home facility and was released from the nursing facility on Sat. Apparently on early Saturday morning, she presented to [facility] with shortness o f breath. Per report, she had a CT of her chest that was negative for PE. She was subsequently mariana gnosed with heart failure and was discharged about 24 hours later. The following day, she saw Dr. Meme bhakta and then saw her progress clerk the day after. Today, she went to the emergency department with sudden onset of worsening shortness of breath, as w ell as some mild left-sided chest pressure that did not radiate. This was associated with some tachy cardia. She denies any fevers but has had some chills. While at [facility] today, silvano cruz requested to be transferred to [facility] where I saw her on . PAST MEDICAL HISTORY: 1. MSSA bacteremia on IV Ancef through 06/05/2017. 2. Allergic bronchopulmonary aspergillosis. 3. Asthma. 4. Depression. 5. PTSD. 6. Hypertension. 7. Attention deficit hyperactivity disorder. 8. Sacral fracture. PAST SURGICAL HISTORY: Back surgery, section, hernia repair, neck surgery. HOME MEDICATIONS: Reviewed. Refer to [employer] for details. ALLERGIES: Vancomycin, ibuprofen, sulfa, Nucynta, trazodone. SOCIAL HISTORY: She is a former smoker. She denies any alcohol or illicit drug use. FAMILY HISTORY: Reviewed and noncontributory. REVIEW OF SYSTEMS: Comprehensive 10-point review of systems was done and is negative, except for as mentioned in HPI. PHYSICAL EXAMINATION: VITAL SIGNS: Blood pressure 100/71, pulse 115, respiratory rate 16, O2 satur ation 92% on 3.5 L. Temperature afebrile. GENERAL: No acute distress. Slightly anxious appearing . HEENT: Head: Normocephalic, atraumatic. Eyes: PERRLA. Sclerae anicteric. Mouth: Moist mucou s membranes. NECK: Supple. No lymphadenopathy. CARDIOVASCULAR: Tachycardic, S1, S2. No JVD. N o lower extremity edema. PULMONARY: Mild bibasilar crackles. No wheezes or rales. Slightly increa sed respiratory effort. ABDOMEN: Soft, nontender, nondistended. No guarding or rebound tenderness . Normoactive bowel sounds. EXTREMITIES: No clubbing or cyanosis. NEURO: Cranial nerves 2-12 gr ossly intact. No focal motor or sensory deficits. SKIN: Without rashes. DIAGNOSTICS: Done at [facility] were reviewed. Troponin was elevated at 0.102. BNP was elevated at 7883. Sodium 136, potassium 5, chloride 101, BUN 15, creatinine 1.25, glucose 186, albumin 2.8, alkaline phosphatase 190, ALT 46, AST 164. Chest x-ray: I have the report which showe d mild diffuse interstitial opacities, borderline cardiomegaly. Blood cultures were drawn. I do no t have the initially EKG but, per report, showed sinus tachycardia with ST and T-wave abnormalities. ASSESSMENT AND PLAN: This is a 51-year-old female, recently treated at [facility] for methicillin-sensitive Staphylococcus aureus bacteremia presenting with: 1. Acute hypoxemic respiratory failure in the setting of tachycardia and elevated troponin. Plan: The patient will be monitored on telemetry where we will cycle her troponins. We will give her a d ose of IV Lasix 20 mg IV now all. We will repeat a stat EKG and consider Cardiology consultation as indicated. Will also send a D-dimer and consider repeat CT angiogram of the chest to evaluate for pulmonary embolism as indicated. 2. History of hyperthyroidism. Plan: The patient's T3 and T4 were elevated. It was recommended t hat she follow up with plastic parts designer after her last hospital hospitalization. For now, we will re peat her free T3 and T4 and see if they are elevating. This could account for some of her tachycard ia. 3. Transaminitis and elevated alkaline phosphatase of unclear etiology. 4. Plan: We will repeat liver function tests in the morning. Consider further workup as indicated. 5. The patient will be admitted to the hospital under inpatient status. /[id number]/MODL
--- NOTE | 2017-05-23 21:18 | CPEKG ---
Heart Rate: 104 RR Interval: 577 P-R Interval: 136 QRSD Interval: 88 QT Interval: 396 QTC Interval: 521 P [place]: 77 QRS [place]: 27 T Wave [place]: -53 EKG Severity - ABNORMAL ECG - EKG Impression: SINUS TACHYCARDIA EKG Impression: RIGHT VENTRICULAR HYPERTROPHY AND RIGHT ATRIAL ENLARGEMENT EKG Impression: NONSPECIFIC T ABNORMALITIES, INFERIOR LEADS Electronically Signed By: Alexander Al 24-May-2017 07:25:57
[2017-05-23] MEDS ORDERED: ALBUTEROL 3 ML DEYVIAL IH PRN (22:17)
[2017-05-23] MEDS ORDERED: D5W IV SCH (22:18)
[2017-05-23] MEDS ORDERED: CEFAZOLIN IV SCH (22:18)
[2017-05-23 22:38] LABS: CREATININE 0.9 mg/dL (0.6-1.0); GLOMERULAR FILTRATION RATE > 60
[2017-05-23 22:49] LABS: TROPONIN I 0.179 ng/mL (0-0.034)
[2017-05-23] MEDS ORDERED: IOPAMIDOL (ISOVUE 370) 100 ML BTL IV ONE (22:51)
[2017-05-23] MEDS ORDERED: IPRATROPIUM/ALBUTEROL 3 ML DEYVIAL ONE (23:19)
[2017-05-23] MEDS: ceFAZolin 2 GM/DEXTROSE 100 ML IV SCH (23:34)
[2017-05-23] MEDS: oxyCODONE IR 15 MG TAB PO PRN (23:34)
[2017-05-23] MEDS: IPRATROPIUM/ALBUTEROL 3 ML DEYVIAL IH SCH (23:43)
[2017-05-24 03:04] LABS: % IMMATURE GRANULYOCYTES 0.3 % (0.0-1.1); ABSOLUTE IMMATURE GRANULOCYTES 0.03 10^3/uL (0.00-0.10); ADD DIFF? NO; ADD MORPH? NO; ADD SCAN? NO; ATYPICAL LYMPHOCYTE FLAG 10 (0-99); FRAGMENT RBC FLAG 0 (0-99); HEMATOCRIT 35.4 % (38.0-47.0); HEMOGLOBIN 11.3 g/dL (12.6-16.3); LEFT SHIFT FLG 0 (0-99); LIPEMIA HEMOLYSIS FLAG 80 (0-99); MEAN CELL HEMOGLOBIN 28.9 pg (27.9-34.1); MEAN CELL HEMOGLOBIN CONCENTR. 31.9 g/dL (32.4-36.7); MEAN CELL VOLUME 90.5 fL (81.5-99.8); MEAN PLATELET VOLUME 12.5 fL (8.7-11.7); PLATELET CLUMPS FLAG 0 (0-99); PLATELET COUNT 53 10^3/uL (150-400); RED BLOOD CELL COUNT 3.91 10^6/uL (4.18-5.33)
[2017-05-24 03:12] LABS: ALANINE AMINOTRANSFERASE 58 IU/L (9-52); ALBUMIN 3.2 g/dL (3.5-5.0); ALKALINE PHOSPHATASE 169 IU/L (38-126); ANION GAP 9 mEq/L (8-16); ASPARTATE AMINOTRANSFERASE 85 IU/L (14-46); BILIRUBIN,TOTAL 0.5 mg/dL (0.1-1.4); CALCIUM 8.4 mg/dL (8.5-10.4); CARBON DIOXIDE 23 mEq/l (22-31); CHLORIDE 97 mEq/L (97-110); CREATININE 0.8 mg/dL (0.6-1.0); GLOMERULAR FILTRATION RATE > 60; GLUCOSE 105 mg/dL (70-100); POTASSIUM 4.2 mEq/L (3.5-5.2); SODIUM 129 mEq/L (134-144); TOTAL PROTEIN 5.8 g/dL (6.3-8.2)
[2017-05-24 03:49] LABS: PROCALCITONIN 1.37 ng/mL (0.02-0.10)
[2017-05-24] MEDS: IPRATROPIUM/ALBUTEROL 3 ML DEYVIAL IH SCH ×4 (05:33→20:57)
[2017-05-24] MEDS: ceFAZolin 2 GM/DEXTROSE 100 ML IV SCH ×3 (05:42→21:42)
[2017-05-24] MEDS: oxyCODONE IR 15 MG TAB PO PRN ×4 (07:52→20:15)
[2017-05-24] MEDS: ENOXAPARIN 40 MG/0.4 ML SYR SC SCH (07:53)
--- NOTE | 2017-05-24 08:49 | HOSPPROG ---
Hospitalist Progress Note Assessment/Plan: # Acute hypoxic respiratory failure - CT chest (personally reviewed and interpreted) new reticulonodular pattern no PE oxygen saturations 93% on 5L on admission - improved this am WBC 9.5 this am - continue inhaled home medications - starting Azithromycin for atypical PNA coverage - legionella, sputum studies sent this am - ID consulting # Hyponatremia - pt reports taking alot of water - received IV lasix overnight for hypoxia - follow in am # MSSA bacteremia - with home PICC receiving continuous cefazolin - new cultures drawn at OSH # Chronic pain - with continuos narcotic dependance - cont home meds - avoid escalating meds if possible # Bronchopulmonary Aspergillosis - cont home dosing voriconazole # Asthma - no wheezing on examination - cont home inhaled meds # Subacute Sacral fracture - source of alot of pain currently - will likely image this stay to eval in setting of MSSA bacteremia - pain meds as above # PTSD/Anxiety - cont home meds # proph - lovenox # diet - regular # dispo- > 2 MN as requires diagnostics and treatment for new pulmonary infiltrates I have discussed the case with ID - we will add Azithromycin to home IV Abx. Subjective: breathing more comfortably this am Objective: Vital Signs Temp Pulse Resp BP Pulse Ox 36.7 C 100 13 131/80 H 95 05/24/17 07:28 05/24/17 07:28 05/24/17 07:28 05/24/17 07:28 05/24/17 07:28 Laboratory Results 05/24/17 02:45 05/24/17 02:45 05/23/17 05/24/17 05/25/17 05:59 05:59 05:59 Intake Total 125 Output Total 1 Balance 124 - Physical Exam Constitutional: chronically ill appearing Eyes: anicteric sclera Ears, Nose, Mouth, Throat: dry mucous membranes Cardiovascular: regular rate and rhythym Respiratory: no respiratory distress, no rales or rhonchi Gastrointestinal: normoactive bowel sounds Genitourinary: no bladder fullness Skin: warm, normal color Musculoskeletal: No asymmetric calves Neurologic: AAOx3 Psychiatric: interacting appropriately Lymph, Heme, Immunologic: no cervical LAD ICD10 Worksheet Patient Problems: Problems Problem Status Onset Lumbar radiculopathy Acute MSSA (methicillin susceptible Staphylococcus aureus) septicemia Acute Allergic bronchopulmonary aspergillosis Chronic Hepatitis C antibody positive in blood Chronic
--- NOTE | 2017-05-24 09:07 | PCMIDPN ---
Assessment/Plan: # Intermittent hypoxia, alveolar to reticulonodular infiltrate on chest CT: unclear etiology, certainly a component of volume -- respiratory panel PCR and Legionella antigen -- compare to outside chest CT -- repeat TTE -- will add azithromycin until etiology sorted out -- follow up on blood cx at OSH # MSSA bacteremia -- continue cefazolin 2gm IV q8h, stop date 06/05/2017 -- may consider repeat MRI while hospitalized # hepatitis-C: Viral load is negative Subjective: 51 year old female with h/o MSSA bacteremia, 05/04 blood cx negative, some inflammatory MR abnormalities R hemisacrum assoc. with iliacus muscle that could refect infection. Suspect source of infection related to picking skin. patient with multiple provider visits over the last 4 days including [facility] x2, pulmonary doctor at [facility]. Patient describes intermittent shortness of breath with chest tightness more prominent on the left side and diaphoresis. She also describes excessive thirst and has drink a significant amount of water with minimal solid food intake. She describes 1 loose stool and mid epigastric pain. No dysuria, no cough, no headache. Chronic low back pain, unchanged Objective: Vital Signs Temp Pulse Resp BP Pulse Ox 36.7 C 100 13 131/80 H 95 05/24/17 07:28 05/24/17 07:28 05/24/17 07:28 05/24/17 07:28 05/24/17 07:28 Laboratory Results 05/24/17 02:45 05/24/17 02:45 05/23/17 05/24/17 05/25/17 05:59 05:59 05:59 Intake Total 125 Output Total 1 Balance 124 - Physical Exam General Appearance: alert, no apparent distress, thin EENT: pale conjunctiva, No scleral icterus, No thrush Respiratory: No accessory muscle use, No crackles Neck: supple Cardiac/Chest: regular rate, rhythm Extremities: No pedal edema Abdomen: normal bowel sounds, non-tender, soft, other ( mid epigastric discomfort to palpation) Skin: No rash Neuro/Psych: alert, normal mood/affect, oriented x 3 - Line/s LUE PICC Lines: No drainage, No erythema - Time Spent With Patient Time Spent with Patient: greater than 35 minutes (coordination of care with Dr. Richie; reviewed CT 05/20 to 05/23 w radiology) Time Spent with Patient: Greater than 35 minutes spent on this patients care, greater than 50% of time spent counseling, educating, and coordinating care regarding the above mentioned plan. ICD10 Worksheet Patient Problems: Problems Problem Status Onset Lumbar radiculopathy Acute MSSA (methicillin susceptible Staphylococcus aureus) septicemia Acute Allergic bronchopulmonary aspergillosis Chronic Hepatitis C antibody positive in blood Chronic
[2017-05-24] MEDS ORDERED: AZITHROMYCIN 250 MG TAB PO SCH (09:15)
[2017-05-24] MEDS ORDERED: ADDERALL 20 MG TAB PO ONE (09:15)
[2017-05-24] MEDS: VORICONAZOLE 200 MG TAB PO SCH ×2 (10:35→21:49)
[2017-05-24] MEDS ORDERED: ACETYLCYSTEINE 10% 30 ML VIAL IH PRN (10:49)
[2017-05-24] MEDS: BECLOMETHASONE QVAR 80 MDI IH SCH ×2 (11:09→21:02)
[2017-05-24] MEDS: predniSONE 20 MG TAB PO SCH (12:00)
--- NOTE | 2017-05-24 13:15 | ECHO ---
[id number] + + [address] : : [place] [address] : : [phone] + Adult Echocardiographic Report + --+ :Name: DILIP BRIONESchanel Date: 05/24/2017 08:23 AM : : Hospital Admission Number: [id number] Location: 2 14: :: 1965 Gender: Female Height: 67 in : :Age: 51 yrs Race: WH Weight: 125 lb : :Reason For Study: Eval LV Fx : : BSA: 1.7 meters2 : :History: H/O MSSA Bacteremia : + --+ MMode/2D Measurements \T\ Calculations IVSd: 0.72 cm RVDd: 3.8 cm FS: 45.7 % Ao root diam: 3.0 cm LVPWd: 0.84 cm LVIDd: 3.5 cm EDV(Teich): 49.4 ml ACS: 2.1 cm LVIDs: 1.9 cm ESV(Teich): 10.8 ml EF(Teich): 78.1 % Normal Measurement Values: + + :LVIDd (3.5-5.7cm) IVSd (0.6-1.1cm) LVPWd (0.6-1.1cm) Aortic Root (2.0-3.7cm)Left Atrium (1.5-4.0cm): :LV Vol(d) (76-115ml) LV Vol(s) (29-48ml) Ejec Fraction (50-65%)PV Steven (0.6- 1.2m/s) TV Steven (0.4-1.0m/s) : :MV E Steven (0.8-1.0m/s)MV A Steven (0.3-1.0m/s)LVOT Steven (0.7-1.2m/s) Asc Ao Steven ( 0.9-1.8m/s) : + + Doppler Measurements \T\ Calculations MV E max steven: Ao V2 max: LV V1 max: TR max steven: 52.3 cm/sec 171.0 cm/sec 106.6 cm/sec 381.4 cm/sec MV A max steven: Ao max PG: LV V1 max PG: TR max P.0 cm/sec 11.7 mmHg 4.5 mmHg 58.2 mmHg MV E/A: 0.68 RAP systole: 5.0 mmHg RVSP(TR): 63.2 mmHg Left Ventricle The left ventricle is normal in size. There is normal left ventricular wall thickness. The left ventricular ejection fraction is normal. Ejection Fraction = 78%. There is Doppler evidence for diastolic dysfunction. Flattened septum is consistent with RV pressure/volume overload. Right Ventricle Borderline right ventricular enlargement. The right ventricular systolic function is mildly reduced. Atria The left atrial size is normal. Right atrial size is normal. Mitral Valve The mitral valve is normal in structure and function. There is no evidence of mitral valve prolapse. There is no mitral valve stenosis. There is no mitral regurgitation noted. Tricuspid Valve Normal tricuspid valve. There is mild tricuspid regurgitation. Right ventricular systolic pressure is 63mmHg. There is Doppler evidence for moderate pulmonary hypertension. Aortic Valve The aortic valve is normal in structure and function. There is no aortic stenosis. There is no aortic insufficiency. Pulmonic Valve The pulmonic valve is normal in structure and function. There is no pulmonic valvular regurgitation. Great Vessels The aortic root is normal size. Pericardium/Pleural Small posterior pericardial effusion. Conclusion A complete two-dimensional transthoracic echocardiogram was performed (2D, M-mode, Doppler and color flow Doppler). The patient has a dilated IVC. There is no evidence of a mass or vegetation. This does not rule out endocarditis. The left ventricular ejection fraction is normal. Ejection Fraction = 78%. There is Doppler evidence for diastolic dysfunction. Flattened septum is consistent with RV pressure/volume overload. The right ventricular systolic function is mildly reduced. Borderline right ventricular enlargement. The left atrial size is normal. The mitral valve is normal in structure and function. There is mild tricuspid regurgitation. Normal tricuspid valve Right ventricular systolic pressure is 63mmHg. There is Doppler evidence for moderate pulmonary hypertension. The aortic valve is normal in structure and function. Small posterior pericardial effusion The patient has a dilated IVC. There is no evidence of a mass or vegetation. This does not rule out endocarditis. Final Reading Physician: Carlos Doyle signed on 05/24/2017 01:14 PM Ordering Physician: Yaw Zamora Performed By: Gavin Zambrano RDCS
[2017-05-24] MEDS ORDERED: ALBUTEROL 60 PUFFS/8 GM MDI IH PRN (17:57)
[2017-05-24] MEDS ORDERED: ALBUTEROL 200 PUFFS/18 GM MDI IH PRN (17:59)
--- NOTE | 2017-05-24 18:23 | HOSPPROG ---
Hospitalist Progress Note Assessment/Plan: Called from [facility] ER with notification of initial blood cultures growing yeast with further identification to follow. Objective: Vital Signs Temp Pulse Resp BP Pulse Ox 36.7 C 80 14 112/74 92 05/24/17 14:57 05/24/17 15:39 05/24/17 14:57 05/24/17 14:57 05/24/17 15:39 Microbiology 05/24/17 15:55 Respiratory Panel (PCR) - Final Nasal, Sinus - Swab No Organism Detected Laboratory Results 05/24/17 02:45 05/24/17 02:45 05/23/17 05/24/17 05/25/17 05:59 05:59 05:59 Intake Total 125 1400 Output Total 1 150 Balance 124 1250 ICD10 Worksheet Patient Problems: Problems Problem Status Onset Hepatitis C antibody positive in blood Chronic Allergic bronchopulmonary aspergillosis Chronic MSSA (methicillin susceptible Staphylococcus aureus) septicemia Acute Lumbar radiculopathy Acute
[2017-05-24] MEDS: FLUTICASONE NASAL 120 SPRAYS/16 GM MDI EACHNARE SCH (20:17)
[2017-05-24] MEDS: SENNOSIDES/DOCUSATE SODIUM TAB PO SCH (20:17)
[2017-05-24] MEDS: ADDERALL 20 MG TAB PO SCH (20:18)
[2017-05-24] MEDS: MICAFUNGIN NA 100 MG in NS 100 ML IV SCH (20:34)
[2017-05-24] MEDS ORDERED: FLUTICASONE NASAL 120 SPRAYS/16 GM MDI EACHNARE SCH (21:00)
[2017-05-24] MEDS ORDERED: MOMETASONE FUROATE NASAL SCH (21:00)
[2017-05-24] MEDS ORDERED: NON-FORMULARY NEW DRUG (Dextroamphetamine/Amphetamine [Adderall 30 Mg Tablet] 30 MG) PO SCH (21:00)
[2017-05-24] MEDS: FLUTICASONE/SALMETER 250/50MCG DISKUS IH SCH (21:02)
[2017-05-24] MEDS: ACETYLCYSTEINE 10% 30 ML VIAL IH SCH (21:03)
[2017-05-25] MEDS: DIAZEPAM 5 MG TAB PO PRN ×3 (00:05→21:46)
[2017-05-25] MEDS: oxyCODONE IR 15 MG TAB PO PRN ×5 (00:05→18:54)
[2017-05-25] MEDS: ceFAZolin 2 GM/DEXTROSE 100 ML IV SCH ×3 (05:02→22:47)
[2017-05-25 05:18] LABS: % IMMATURE GRANULYOCYTES 0.3 % (0.0-1.1); ABSOLUTE IMMATURE GRANULOCYTES 0.03 10^3/uL (0.00-0.10); ADD DIFF? NO; ADD MORPH? NO; ADD SCAN? NO; ATYPICAL LYMPHOCYTE FLAG 30 (0-99); FRAGMENT RBC FLAG 0 (0-99); HEMATOCRIT 34.2 % (38.0-47.0); HEMOGLOBIN 11.1 g/dL (12.6-16.3); LEFT SHIFT FLG 0 (0-99); LIPEMIA HEMOLYSIS FLAG 80 (0-99); MEAN CELL HEMOGLOBIN 29.1 pg (27.9-34.1); MEAN CELL HEMOGLOBIN CONCENTR. 32.5 g/dL (32.4-36.7); MEAN CELL VOLUME 89.5 fL (81.5-99.8); MEAN PLATELET VOLUME 12.2 fL (8.7-11.7); PLATELET CLUMPS FLAG 0 (0-99); PLATELET COUNT 72 10^3/uL (150-400); RED BLOOD CELL COUNT 3.82 10^6/uL (4.18-5.33); RED CELL DISTRIBUTION WIDTH 13.8 % (11.5-15.2)
[2017-05-25] MEDS: ADDERALL 20 MG TAB PO SCH ×3 (05:18→14:12)
[2017-05-25 05:31] LABS: ALANINE AMINOTRANSFERASE 40 IU/L (9-52); ALBUMIN 3.1 g/dL (3.5-5.0); ALKALINE PHOSPHATASE 148 IU/L (38-126); ANION GAP 8 mEq/L (8-16); ASPARTATE AMINOTRANSFERASE 34 IU/L (14-46); BILIRUBIN,TOTAL 0.5 mg/dL (0.1-1.4); CALCIUM 8.9 mg/dL (8.5-10.4); CARBON DIOXIDE 23 mEq/l (22-31); CHLORIDE 98 mEq/L (97-110); CREATININE 0.6 mg/dL (0.6-1.0); GLOMERULAR FILTRATION RATE > 60; GLUCOSE 126 mg/dL (70-100); POTASSIUM 3.6 mEq/L (3.5-5.2); SODIUM 129 mEq/L (134-144); TOTAL PROTEIN 6.1 g/dL (6.3-8.2)
[2017-05-25] MEDS: IPRATROPIUM/ALBUTEROL 3 ML DEYVIAL IH SCH ×2 (06:04→11:07)
[2017-05-25] MEDS: BECLOMETHASONE QVAR 80 MDI IH SCH ×3 (06:07→18:55)
[2017-05-25] MEDS: MONTELUKAST SODIUM 10 MG TAB PO SCH (08:03)
[2017-05-25] MEDS: FLUoxetine 20 MG CAP PO SCH (08:03)
[2017-05-25] MEDS: SENNOSIDES/DOCUSATE SODIUM TAB PO SCH ×2 (08:03→21:44)
[2017-05-25] MEDS: FLUTICASONE NASAL 120 SPRAYS/16 GM MDI EACHNARE SCH ×2 (08:04→21:44)
[2017-05-25] MEDS: VORICONAZOLE 200 MG TAB PO SCH ×2 (08:04→21:44)
[2017-05-25] MEDS: MICAFUNGIN NA 100 MG in NS 100 ML IV SCH (08:04)
[2017-05-25] MEDS: CHOLECALCIFEROL VIT D3 1,000 UNITS TAB PO SCH (08:04)
[2017-05-25] MEDS: predniSONE 20 MG TAB PO SCH (08:04)
[2017-05-25] MEDS ORDERED: Herbals/Supplements -Info Only PO SCH (09:00)
[2017-05-25] MEDS ORDERED: NON-FORMULARY NEW DRUG (Fluoxetine Hcl [Prozac 40 Mg] 40 MG) PO SCH (09:00)
[2017-05-25] MEDS: ENOXAPARIN 40 MG/0.4 ML SYR SC SCH (09:03)
--- NOTE | 2017-05-25 10:06 | PCMIDPN ---
Assessment/Plan: # Intermittent hypoxia, alveolar to reticulonodular infiltrate on chest CT: suspect primarily flash pulm edema. respiratory panel PCR negative # Candidemia secondary to line. 2 sets blood cx + yeast at OSH, both identified as from line. Unfortunately not aware of this yesterday and gave first dose micafungin without re-collecting blood cx. Nonetheless, PICC needs to be removed. --dc PICC --continue micafungin --repeat blood cx tomorrow # MSSA bacteremia, 05/04 -- continue cefazolin 2gm IV q8h, stop date 06/05/2017 -- repeat MRI to evaluate prior abn: onflammatory MR abnormalities R hemisacrum assoc. with iliacus muscle # hepatitis-C: Viral load is negative # ABPA on vori + steroids --taper steroids meds ancef 2gm IV q8 micafungin 100mg IV daily vori 200mg BID (for abpa) Subjective: patient still with LBP but stable no BM for several days Objective: Vital Signs Temp Pulse Resp BP Pulse Ox 36.8 C 98 19 126/88 H 93 05/25/17 07:58 05/25/17 07:58 05/25/17 07:58 05/25/17 07:58 05/25/17 07:58 Microbiology 05/24/17 15:55 Respiratory Panel (PCR) - Final Nasal, Sinus - Swab No Organism Detected Laboratory Results 05/25/17 05:10 05/25/17 05:10 05/24/17 05/25/17 05/26/17 05:59 05:59 05:59 Intake Total 125 1600 110 Output Total 1 150 Balance 124 1450 110 - Physical Exam General Appearance: alert, no apparent distress Respiratory: lungs clear, No accessory muscle use Cardiac/Chest: regular rate, rhythm Extremities: No pedal edema Abdomen: normal bowel sounds, non-tender Skin: No rash Neuro/Psych: alert, normal mood/affect, oriented x 3 - Line/s LUE PICC Lines: No drainage, No erythema - Time Spent With Patient Time Spent with Patient: greater than 35 minutes Time Spent with Patient: Greater than 35 minutes spent on this patients care, greater than 50% of time spent counseling, educating, and coordinating care regarding the above mentioned plan. ICD10 Worksheet Patient Problems: Problems Problem Status Onset Lumbar radiculopathy Acute MSSA (methicillin susceptible Staphylococcus aureus) septicemia Acute Allergic bronchopulmonary aspergillosis Chronic Hepatitis C antibody positive in blood Chronic
[2017-05-25] MEDS: ACETYLCYSTEINE 10% 30 ML VIAL IH SCH (11:07)
[2017-05-25] MEDS: FLUTICASONE/SALMETER 250/50MCG DISKUS IH SCH (11:08)
--- NOTE | 2017-05-25 15:08 | HOSPPROG ---
Hospitalist Progress Note Assessment/Plan: # Acute Candidemia - risk factors are chronic prednisone and PICC for MSSA bacteremia - dc PICC - place peripheral - start micafungin - wean prednisone # Acute hypoxic respiratory failure - CT chest (personally reviewed and interpreted) new reticulonodular pattern no PE-? 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 # Asthma - no wheezing on examination - cont home inhaled meds - weaning prednisone to 15mg tomorrow am # Subacute Sacral fracture - source of alot of pain currently - MRI sacram ordered - pain meds as above # protein calorie malnutrition - has had extensive weight loss recently with acute illness - BMI 19 - encourage PO and nourishments # PTSD/Anxiety - cont home meds # proph - lovenox # diet - regular # dispo- > 2 MN as requires diagnostics and treatment for new pulmonary infiltrates I have discussed the case with ID - wean prednisone and re-image sacrum today - micafungin started overnight. Subjective: sacral pain feels like it is shifting to the left Objective: Vital Signs Temp Pulse Resp BP Pulse Ox 36.9 C 79 16 126/88 H 93 05/25/17 12:00 05/25/17 12:00 05/25/17 12:00 05/25/17 07:58 05/25/17 12:00 Microbiology 05/24/17 15:55 Respiratory Panel (PCR) - Final Nasal, Sinus - Swab No Organism Detected Laboratory Results 05/25/17 05:10 05/25/17 05:10 05/24/17 05/25/17 05/26/17 05:59 05:59 05:59 Intake Total 125 1600 110 Output Total 1 150 Balance 124 1450 110 - Physical Exam Constitutional: chronically ill appearing Eyes: anicteric sclera Ears, Nose, Mouth, Throat: dry mucous membranes Cardiovascular: regular rate and rhythym Respiratory: no respiratory distress, no rales or rhonchi Gastrointestinal: normoactive bowel sounds, soft, non-tender abdomen Genitourinary: no bladder fullness Skin: warm Musculoskeletal: No asymmetric calves Neurologic: AAOx3 Psychiatric: interacting appropriately Lymph, Heme, Immunologic: no cervical LAD ICD10 Worksheet Patient Problems: Problems Problem Status Onset Lumbar radiculopathy Acute MSSA (methicillin susceptible Staphylococcus aureus) septicemia Acute Allergic bronchopulmonary aspergillosis Chronic Hepatitis C antibody positive in blood Chronic
[2017-05-25] MEDS ORDERED: GADOBUTROL 10 ML VIAL IVP ONE (16:48)
[2017-05-26] MEDS: oxyCODONE IR 15 MG TAB PO PRN ×6 (00:02→22:22)
[2017-05-26] MEDS: IPRATROPIUM/ALBUTEROL 3 ML DEYVIAL IH SCH ×7 (00:07→20:35)
[2017-05-26] MEDS: BECLOMETHASONE QVAR 80 MDI IH SCH ×3 (00:08→17:33)
[2017-05-26] MEDS: FLUTICASONE/SALMETER 250/50MCG DISKUS IH SCH ×3 (00:08→20:40)
[2017-05-26] MEDS: ACETYLCYSTEINE 10% 30 ML VIAL IH SCH ×4 (00:08→20:37)
[2017-05-26 04:22] LABS: % IMMATURE GRANULYOCYTES 0.9 % (0.0-1.1); ADD DIFF? NO; ADD MORPH? NO; ADD SCAN? NO; ATYPICAL LYMPHOCYTE FLAG 10 (0-99); FRAGMENT RBC FLAG 30 (0-99); HEMOGLOBIN 11.3 g/dL (12.6-16.3); LEFT SHIFT FLG 0 (0-99); LIPEMIA HEMOLYSIS FLAG 80 (0-99); MEAN CELL HEMOGLOBIN 29.3 pg (27.9-34.1); MEAN CELL HEMOGLOBIN CONCENTR. 32.3 g/dL (32.4-36.7); MEAN CELL VOLUME 90.7 fL (81.5-99.8); PLATELET CLUMPS FLAG 0 (0-99); PLATELET COUNT 81 10^3/uL (150-400); RED BLOOD CELL COUNT 3.86 10^6/uL (4.18-5.33); RED CELL DISTRIBUTION WIDTH 14.2 % (11.5-15.2)
[2017-05-26 04:36] LABS: ALANINE AMINOTRANSFERASE 36 IU/L (9-52); ALBUMIN 3.4 g/dL (3.5-5.0); ALKALINE PHOSPHATASE 151 IU/L (38-126); ANION GAP 12 mEq/L (8-16); ASPARTATE AMINOTRANSFERASE 34 IU/L (14-46); BILIRUBIN,TOTAL 0.5 mg/dL (0.1-1.4); CALCIUM 8.9 mg/dL (8.5-10.4); CARBON DIOXIDE 20 mEq/l (22-31); CHLORIDE 102 mEq/L (97-110); CREATININE 0.6 mg/dL (0.6-1.0); GLOMERULAR FILTRATION RATE > 60; GLUCOSE 111 mg/dL (70-100); POTASSIUM 3.7 mEq/L (3.5-5.2); SODIUM 134 mEq/L (134-144); TOTAL PROTEIN 6.2 g/dL (6.3-8.2)
[2017-05-26] MEDS: ceFAZolin 2 GM/DEXTROSE 100 ML IV SCH ×3 (05:25→21:58)
[2017-05-26] MEDS: ADDERALL 20 MG TAB PO SCH ×2 (06:48→15:57)
[2017-05-26] MEDS: CHOLECALCIFEROL VIT D3 1,000 UNITS TAB PO SCH (09:20)
[2017-05-26] MEDS: ENOXAPARIN 40 MG/0.4 ML SYR SC SCH (09:20)
[2017-05-26] MEDS: VORICONAZOLE 200 MG TAB PO SCH ×2 (09:21→21:59)
[2017-05-26] MEDS: FLUoxetine 20 MG CAP PO SCH (09:21)
[2017-05-26] MEDS: MONTELUKAST SODIUM 10 MG TAB PO SCH (09:21)
[2017-05-26] MEDS: SENNOSIDES/DOCUSATE SODIUM TAB PO SCH ×2 (09:21→21:59)
[2017-05-26] MEDS: predniSONE 10 MG TAB PO SCH (09:21)
[2017-05-26] MEDS: MICAFUNGIN NA 100 MG in NS 100 ML IV SCH (09:39)
[2017-05-26] MEDS: FLUTICASONE NASAL 120 SPRAYS/16 GM MDI EACHNARE SCH ×2 (09:44→21:59)
--- NOTE | 2017-05-26 11:49 | HOSPPROG ---
Hospitalist Progress Note Assessment/Plan: # Acute Candidemia - risk factors are chronic prednisone and PICC for MSSA bacteremia - dc PICC - place peripheral - continue micafungin - wean prednisone to 15mg from 20mg - would continue wean 5mg Q3 days # Acute hypoxic respiratory failure - CT chest (personally reviewed and interpreted) new reticulonodular pattern no PE-? edema oxygen saturations 93% on RA now after single dose lasix IV- viral sputum studies negative - legionella pending - continue inhaled home medications - pt asking for home percussion vest - weaning prednisone for asthma # Subacute Sacral fracture - MRI sacrum (personally reviewed and interpreted) shows progression of the right laisha sacrum fracture with associated inflammation - pain meds as above # Hyponatremia - resolved overnight with good PO intake- 134 this am - follow in am # MSSA bacteremia - cont receiving continuous cefazolin through peripheral until PICC re-placed # Chronic pain - with continuos narcotic dependance - cont home meds - avoid escalating meds if possible - adding voltaren topical she has used in past # Bronchopulmonary Aspergillosis - cont home dosing voriconazole # Asthma - no wheezing on examination - cont home inhaled meds - cont weaning prednisone currently at 15mg tomorrow am # protein calorie malnutrition - has had extensive weight loss recently with acute illness - BMI 19 - encourage PO and nourishments # PTSD/Anxiety - cont home meds # proph - lovenox # diet - regular # dispo- > 2 MN as requires diagnostics and treatment for new pulmonary infiltrates I have discussed the case with RN and RT - can have pt use own percussion vest - mother will bring Subjective: pain in sacrum Objective: Vital Signs Temp Pulse Resp BP Pulse Ox 37.0 C 119 H 16 137/80 H 93 05/26/17 07:59 05/26/17 08:39 05/26/17 08:39 05/26/17 07:59 05/26/17 08:39 Laboratory Results 05/26/17 03:35 05/26/17 03:35 05/25/17 05/26/17 05/27/17 05:59 05:59 05:59 Intake Total 1600 1720 Output Total 150 Balance 1450 1720 - Physical Exam Constitutional: cachectic Eyes: anicteric sclera Ears, Nose, Mouth, Throat: moist mucous membranes Cardiovascular: regular rate and rhythym Respiratory: no respiratory distress, no rales or rhonchi Gastrointestinal: normoactive bowel sounds, soft, non-tender abdomen Genitourinary: no bladder fullness Skin: warm, normal color Musculoskeletal: No asymmetric calves Neurologic: AAOx3 Psychiatric: interacting appropriately, anxious Lymph, Heme, Immunologic: no cervical LAD ICD10 Worksheet Patient Problems: Problems Problem Status Onset Lumbar radiculopathy Acute MSSA (methicillin susceptible Staphylococcus aureus) septicemia Acute Allergic bronchopulmonary aspergillosis Chronic Hepatitis C antibody positive in blood Chronic
--- NOTE | 2017-05-26 11:58 | PCMIDPN ---
Assessment/Plan: # Candidemia secondary to line. 2 sets blood cx + yeast at [facility], both identified as "from line." Unfortunately not aware of this on transfer and gave first dose micafungin without re-collecting blood cx. Nonetheless, PICC removed yesterday. -- Will call [facility] for follow up on yeast in blood cultures ID: [id number] --repeat blood cx collected this AM, can replace PICC when blood cx neg 48hr # MSSA bacteremia, 05/04 blood cultures clear -- continue cefazolin 2gm IV q8h, stop date 06/05/2017 # R hemisacrum stress fracture: Reviewed MRI with Radiology and current imaging suggest this area is more consistent with fracture as opposed to infection. Will not change duration of IV antibiotics. Continue with planned for 4 weeks. Suspect underlying osteoporosis as etiology of stress fracture although cannot completely exclude component of exercise. -- primary therapy for this is avoidance of stress and evaluation and treatment of osteoporosis # Intermittent hypoxia, alveolar to reticulonodular infiltrate on chest CT: suspect primarily flash pulm edema. 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 --steroid taper started yesterday meds ancef 2gm IV q8 micafungin 100mg IV daily vori 200mg BID (for abpa) micro 05/26 blood cx (2) pending Subjective: patient complaining of low back pain Objective: Vital Signs Temp Pulse Resp BP Pulse Ox 36.7 C 114 H 15 128/82 H 90 L 05/26/17 11:52 05/26/17 11:52 05/26/17 11:52 05/26/17 11:52 05/26/17 11:52 Laboratory Results 05/26/17 03:35 05/26/17 03:35 05/25/17 05/26/17 05/27/17 05:59 05:59 05:59 Intake Total 1600 1720 Output Total 150 Balance 1450 1720 - Physical Exam General Appearance: alert, no apparent distress EENT: pale conjunctiva, No thrush Respiratory: lungs clear, No accessory muscle use Cardiac/Chest: tachycardia Extremities: No pedal edema Skin: No rash Neuro/Psych: alert, normal mood/affect, oriented x 3 - Time Spent With Patient Time Spent with Patient: greater than 35 minutes (coordination of care with Internal Medicine and review of imaging with Radiology) Time Spent with Patient: Greater than 35 minutes spent on this patients care, greater than 50% of time spent counseling, educating, and coordinating care regarding the above mentioned plan. ICD10 Worksheet Patient Problems: Problems Problem Status Onset Lumbar radiculopathy Acute MSSA (methicillin susceptible Staphylococcus aureus) septicemia Acute Allergic bronchopulmonary aspergillosis Chronic Hepatitis C antibody positive in blood Chronic
[2017-05-26] MEDS: DICLOFENAC SODIUM 1% 100 GM GEL TP SCH ×3 (13:56→21:58)
[2017-05-27] MEDS: DIAZEPAM 5 MG TAB PO PRN (01:13)
[2017-05-27] MEDS: oxyCODONE IR 15 MG TAB PO PRN ×4 (03:50→22:39)
[2017-05-27 04:27] LABS: % IMMATURE GRANULYOCYTES 0.6 % (0.0-1.1); ABSOLUTE IMMATURE GRANULOCYTES 0.06 10^3/uL (0.00-0.10); ADD DIFF? NO; ADD MORPH? NO; ADD SCAN? NO; ALANINE AMINOTRANSFERASE 28 IU/L (9-52); ALKALINE PHOSPHATASE 126 IU/L (38-126); ANION GAP 9 mEq/L (8-16); ASPARTATE AMINOTRANSFERASE 17 IU/L (14-46); ATYPICAL LYMPHOCYTE FLAG 30 (0-99); BILIRUBIN,TOTAL 0.3 mg/dL (0.1-1.4); CALCIUM 9.1 mg/dL (8.5-10.4); CARBON DIOXIDE 22 mEq/l (22-31); CHLORIDE 103 mEq/L (97-110); CREATININE 0.6 mg/dL (0.6-1.0); FRAGMENT RBC FLAG 0 (0-99); GLOMERULAR FILTRATION RATE > 60; GLUCOSE 100 mg/dL (70-100); HEMATOCRIT 32.3 % (38.0-47.0); HEMOGLOBIN 10.5 g/dL (12.6-16.3); LEFT SHIFT FLG 0 (0-99); LIPEMIA HEMOLYSIS FLAG 80 (0-99); MEAN CELL HEMOGLOBIN CONCENTR. 32.5 g/dL (32.4-36.7); MEAN CELL VOLUME 89.2 fL (81.5-99.8); MEAN PLATELET VOLUME 13.2 fL (8.7-11.7); PLATELET CLUMPS FLAG 0 (0-99); PLATELET COUNT 105 10^3/uL (150-400); POTASSIUM 3.5 mEq/L (3.5-5.2); RED BLOOD CELL COUNT 3.62 10^6/uL (4.18-5.33); RED CELL DISTRIBUTION WIDTH 14.6 % (11.5-15.2); SODIUM 134 mEq/L (134-144); TOTAL PROTEIN 5.9 g/dL (6.3-8.2)
[2017-05-27] MEDS: IPRATROPIUM/ALBUTEROL 3 ML DEYVIAL IH SCH ×4 (06:06→21:06)
[2017-05-27] MEDS: BECLOMETHASONE QVAR 80 MDI IH SCH ×2 (06:08→17:21)
[2017-05-27] MEDS: ceFAZolin 2 GM/DEXTROSE 100 ML IV SCH ×3 (06:19→21:46)
[2017-05-27] MEDS: ADDERALL 20 MG TAB PO SCH ×2 (06:19→15:45)
[2017-05-27] MEDS: DICLOFENAC SODIUM 1% 100 GM GEL TP SCH ×4 (06:20→21:48)
[2017-05-27] MEDS: FLUTICASONE NASAL 120 SPRAYS/16 GM MDI EACHNARE SCH ×2 (09:00→21:48)
[2017-05-27] MEDS: MONTELUKAST SODIUM 10 MG TAB PO SCH (09:53)
[2017-05-27] MEDS: SENNOSIDES/DOCUSATE SODIUM TAB PO SCH ×2 (09:53→21:46)
[2017-05-27] MEDS: FLUoxetine 20 MG CAP PO SCH (09:53)
[2017-05-27] MEDS: CHOLECALCIFEROL VIT D3 1,000 UNITS TAB PO SCH (09:53)
[2017-05-27] MEDS: MICAFUNGIN NA 100 MG in NS 100 ML IV SCH (09:53)
[2017-05-27] MEDS: ENOXAPARIN 40 MG/0.4 ML SYR SC SCH (09:53)
[2017-05-27] MEDS: predniSONE 10 MG TAB PO SCH (09:54)
[2017-05-27] MEDS: VORICONAZOLE 200 MG TAB PO SCH ×2 (09:54→21:46)
[2017-05-27] MEDS: ACETYLCYSTEINE 10% 30 ML VIAL IH SCH ×2 (11:24→17:20)
--- NOTE | 2017-05-27 11:47 | HOSPPROG ---
Hospitalist Progress Note Assessment/Plan: # Acute Candidemia - secondary to line. risk factors are chronic prednisone and PICC for MSSA bacteremia - PICC dc'd, will replace when repeat BCx's neg x48 hrs, possibly tomorrow - continue micafungin - wean prednisone to 15mg from 20mg - will continue wean 5mg Q3 days, next decrease on 05/29 # MSSA bacteremia - cont cefazolin via peripheral access, awaiting new PICC. Stop date 06/05. # Acute hypoxic respiratory failure - Resolved. CT chest (personally reviewed and interpreted) new reticulonodular pattern no PE, suspect pulm edema oxygen saturations 93% on RA now after single dose lasix IV- respiratory PCR negative - legionella pending - continue inhaled home medications - home percussion vest - weaning prednisone # Subacute Sacral fracture - MRI sacrum (personally reviewed and interpreted) shows progression of the vertical right laisha sacrum fracture with associated inflammation. Suspect osteoporotic given chronic steroid history. - pain meds as above - outpt primary care f/u for bone scan and osteoporosis management # Hyponatremia - resolved # Chronic pain - with continuos narcotic dependence - cont home meds - avoid escalating meds if possible - voltaren added, has used in past # Bronchopulmonary Aspergillosis - cont home dosing voriconazole -home percussion vest # Asthma - no wheezing on examination - cont home inhaled meds - cont weaning prednisone currently at 15mg tomorrow am # protein calorie malnutrition - has had extensive weight loss recently with acute illness - BMI 19 - encourage PO and nourishments # PTSD/Anxiety - cont home meds # proph - lovenox # diet - regular # dispo- cont inpt, pt has 3 flights of stairs and wishes to go to rehab to get stronger prior to going home. CM involved. F/U PT/OT recs. Subjective: Pt feels well. She is worried abt the sacral fracture. Also worried about not being well enough to manage the 3 flights of stairs to her apartment, wishes for rehab. Denies CP or SOB. No wheezing. No fevers. Objective: Vital Signs Temp Pulse Resp BP Pulse Ox 36.6 C 94 18 125/83 H 96 05/27/17 08:00 05/27/17 08:00 05/27/17 08:00 05/27/17 08:00 05/27/17 08:00 Laboratory Results 05/27/17 03:51 05/27/17 03:51 05/26/17 05/27/17 05/28/17 05:59 05:59 05:59 Intake Total 1720 900 Output Total 1 Balance 1720 900 -1 - Physical Exam Constitutional: no apparent distress Eyes: PERRL Ears, Nose, Mouth, Throat: moist mucous membranes Cardiovascular: regular rate and rhythym Respiratory: no respiratory distress, other (a few faint crackles right lower lung field) Gastrointestinal: normoactive bowel sounds, soft, non-tender abdomen Skin: warm Musculoskeletal: full muscle strength Neurologic: AAOx3 Psychiatric: interacting appropriately, anxious ICD10 Worksheet Patient Problems: Problems Problem Status Onset Lumbar radiculopathy Acute MSSA (methicillin susceptible Staphylococcus aureus) septicemia Acute Allergic bronchopulmonary aspergillosis Chronic Hepatitis C antibody positive in blood Chronic
[2017-05-27] MEDS: FLUTICASONE/SALMETER 250/50MCG DISKUS IH SCH ×2 (12:17→21:07)
--- NOTE | 2017-05-27 14:56 | PCMIDPN ---
Assessment/Plan: Assessment: 1. Cara glabrata line infection. Status post PICC removal. Phone call to outside micro lab reveals isolate from blood was Cara glabrata. Micafungin is appropriate continuing coverage. Will continue holding off on PICC replacement and utilize peripheral IV for treatment until blood cultures are negative at least another 24 hours. Overall patient is clinically doing quite well. 2. Prior MSSA bacteremia with planned stop date on 06/05/2017. Continue cefazolin therapy through that date. Plan: 1. Continue IV cefazolin at 2 g IV q.8 hours. 2. Continue IV micafungin. Suspect will need a 4 week course of therapy from clearance. Subjective: Patient is feeling much better. She has no specific complaint. Denies any fevers or chills. Objective: Cefazolin # 19/28 Micafungin # 4 Voriconazole (chronic therapy) Vital Signs Temp Pulse Resp BP Pulse Ox 36.7 C 81 17 148/98 H 96 05/27/17 12:00 05/27/17 12:00 05/27/17 12:00 05/27/17 12:00 05/27/17 12:00 Laboratory Results 05/27/17 03:51 05/27/17 03:51 05/26/17 05/27/17 05/28/17 05:59 05:59 05:59 Intake Total 1720 900 Output Total 1 Balance 1720 900 -1 - Physical Exam General Appearance: WD/WN, alert, no apparent distress, thin, non-toxic Respiratory: lungs clear, normal breath sounds, No respiratory distress Cardiac/Chest: regular rate, rhythm, tachycardia, systolic murmur, No irregularly irregular Skin: normal color, warm/dry, No rash Neuro/Psych: alert, normal mood/affect, oriented x 3 ICD10 Worksheet Patient Problems: Problems Problem Status Onset Lumbar radiculopathy Acute MSSA (methicillin susceptible Staphylococcus aureus) septicemia Acute Allergic bronchopulmonary aspergillosis Chronic Hepatitis C antibody positive in blood Chronic
[2017-05-28] MEDS: oxyCODONE IR 15 MG TAB PO PRN ×4 (03:57→18:20)
[2017-05-28 04:10] LABS: % IMMATURE GRANULYOCYTES 0.6 % (0.0-1.1); ABSOLUTE IMMATURE GRANULOCYTES 0.05 10^3/uL (0.00-0.10); ADD DIFF? NO; ADD MORPH? NO; ADD SCAN? NO; ATYPICAL LYMPHOCYTE FLAG 20 (0-99); FRAGMENT RBC FLAG 0 (0-99); HEMATOCRIT 33.1 % (38.0-47.0); HEMOGLOBIN 10.7 g/dL (12.6-16.3); LEFT SHIFT FLG 0 (0-99); LIPEMIA HEMOLYSIS FLAG 80 (0-99); MEAN CELL HEMOGLOBIN 29.4 pg (27.9-34.1); MEAN CELL HEMOGLOBIN CONCENTR. 32.3 g/dL (32.4-36.7); MEAN CELL VOLUME 90.9 fL (81.5-99.8); MEAN PLATELET VOLUME 11.8 fL (8.7-11.7); PLATELET CLUMPS FLAG 0 (0-99); PLATELET COUNT 162 10^3/uL (150-400); RED BLOOD CELL COUNT 3.64 10^6/uL (4.18-5.33); RED CELL DISTRIBUTION WIDTH 14.5 % (11.5-15.2)
[2017-05-28 04:32] LABS: ALANINE AMINOTRANSFERASE 27 IU/L (9-52); ALBUMIN 3.2 g/dL (3.5-5.0); ALKALINE PHOSPHATASE 126 IU/L (38-126); ANION GAP 11 mEq/L (8-16); ASPARTATE AMINOTRANSFERASE 17 IU/L (14-46); BILIRUBIN,TOTAL 0.4 mg/dL (0.1-1.4); CALCIUM 8.9 mg/dL (8.5-10.4); CARBON DIOXIDE 24 mEq/l (22-31); CHLORIDE 104 mEq/L (97-110); CREATININE 0.5 mg/dL (0.6-1.0); GLOMERULAR FILTRATION RATE > 60; GLUCOSE 78 mg/dL (70-100); POTASSIUM 3.9 mEq/L (3.5-5.2); SODIUM 139 mEq/L (134-144); TOTAL PROTEIN 5.9 g/dL (6.3-8.2)
[2017-05-28] MEDS: IPRATROPIUM/ALBUTEROL 3 ML DEYVIAL IH SCH ×3 (05:27→17:45)
[2017-05-28] MEDS: FLUTICASONE/SALMETER 250/50MCG DISKUS IH SCH (05:28)
[2017-05-28] MEDS: BECLOMETHASONE QVAR 80 MDI IH SCH ×2 (05:29→17:47)
[2017-05-28] MEDS: ceFAZolin 2 GM/DEXTROSE 100 ML IV SCH ×2 (06:46→14:33)
[2017-05-28] MEDS: ADDERALL 20 MG TAB PO SCH ×2 (06:46→14:30)
[2017-05-28] MEDS: DICLOFENAC SODIUM 1% 100 GM GEL TP SCH ×3 (06:48→18:03)
[2017-05-28] MEDS: predniSONE 10 MG TAB PO SCH (08:50)
[2017-05-28] MEDS: FLUoxetine 20 MG CAP PO SCH (08:50)
[2017-05-28] MEDS: MONTELUKAST SODIUM 10 MG TAB PO SCH (08:50)
[2017-05-28] MEDS: SENNOSIDES/DOCUSATE SODIUM TAB PO SCH (08:50)
[2017-05-28] MEDS: VORICONAZOLE 200 MG TAB PO SCH (08:50)
[2017-05-28] MEDS: CHOLECALCIFEROL VIT D3 1,000 UNITS TAB PO SCH (08:50)
[2017-05-28] MEDS: ENOXAPARIN 40 MG/0.4 ML SYR SC SCH (08:53)
[2017-05-28] MEDS: MICAFUNGIN NA 100 MG in NS 100 ML IV SCH (08:58)
[2017-05-28] MEDS: FLUTICASONE NASAL 120 SPRAYS/16 GM MDI EACHNARE SCH (09:01)
[2017-05-28 09:03] VITALS: O2SAT 93
[2017-05-28 11:30] VITALS: BP 155/98; PULSE 92; RESP 18; TEMP 98.6
--- NOTE | 2017-05-28 12:25 | PCMIDPN ---
Assessment/Plan: # C glabrata picc line infection --micafungin x 2 weeks --can hold voriconazole while on micafungin # MSSA bacteremia, 05/04 blood cultures clear -- continue cefazolin 2gm IV q8h, for simplicity will stop both agents 06/09 -- follow up ID clinic 1 week # R hemisacrum stress fracture # hepatitis-C: Viral load is negative # ABPA on vori + steroids. --hold vori while on micafungin --taper steroids meds ancef 2gm IV q8 micafungin 100mg IV daily vori 200mg BID (for abpa) micro 05/26 blood cx (2) ngtd Subjective: feeling better would like to go home today no diarrhea Night sweats resolved Worried about amount of sugar that she is eating Objective: Vital Signs Temp Pulse Resp BP Pulse Ox 37.0 C 92 18 155/98 H 93 05/28/17 11:29 05/28/17 11:29 05/28/17 11:29 05/28/17 11:29 05/28/17 11:29 Laboratory Results 05/28/17 03:58 05/28/17 03:58 05/27/17 05/28/17 05/29/17 05:59 05:59 05:59 Intake Total 900 950 Output Total 1 Balance 900 949 - Physical Exam General Appearance: alert, no apparent distress Respiratory: No accessory muscle use Skin: No rash Neuro/Psych: alert, normal mood/affect - Time Spent With Patient Time Spent with Patient: greater than 25 minutes Time Spent with Patient: Greater than 25 minutes spent on this patients care, greater than 50% of time spent counseling, educating, and coordinating care regarding the above mentioned plan. ICD10 Worksheet Patient Problems: Problems Problem Status Onset Lumbar radiculopathy Acute MSSA (methicillin susceptible Staphylococcus aureus) septicemia Acute Allergic bronchopulmonary aspergillosis Chronic Hepatitis C antibody positive in blood Chronic
[2017-05-28] MEDS ORDERED: ALTEPLASE 2 MG VIAL IVP PRN (12:31)
--- NOTE | 2017-05-28 12:36 | HOSPPROG ---
Hospitalist Progress Note Assessment/Plan: # Acute Candidemia - secondary to line, since dc'd. risk factors are chronic prednisone and PICC for MSSA bacteremia - new PICC today - continue micafungin - wean prednisone to 15mg from 20mg - will continue wean 5mg Q3 days, next decrease on 05/29 # MSSA bacteremia - cont cefazolin. Stop date 06/05. # Acute hypoxic respiratory failure - Resolved. CT chest (personally reviewed and interpreted) new reticulonodular pattern no PE, suspect pulm edema oxygen saturations 93% on RA now after single dose lasix IV- respiratory PCR negative - legionella pending - continue inhaled home medications - home percussion vest - weaning prednisone # Subacute Sacral fracture - MRI sacrum (personally reviewed and interpreted) shows progression of the vertical right laisha sacrum fracture with associated inflammation. Suspect osteoporotic given chronic steroid history. - pain meds as above - outpt primary care f/u for bone scan and osteoporosis management # Hyponatremia - resolved # Chronic pain - with continuos narcotic dependence - cont home meds - avoid escalating meds if possible - voltaren added, has used in past # Bronchopulmonary Aspergillosis - discussed with ID, will hold voriconazole while on micafungin -home percussion vest # Asthma - no wheezing on examination - cont home inhaled meds - cont weaning prednisone currently at 15mg # protein calorie malnutrition - has had extensive weight loss recently with acute illness - BMI 19 - encourage PO and nourishments # PTSD/Anxiety - cont home meds # proph - lovenox # diet - regular # dispo- cont inpt, pt has 3 flights of stairs and wishes to go to rehab to get stronger prior to going home. CM involved. F/U PT/OT recs. Objective: Vital Signs Temp Pulse Resp BP Pulse Ox 37.0 C 92 18 155/98 H 93 05/28/17 11:29 05/28/17 11:29 05/28/17 11:29 05/28/17 11:29 05/28/17 11:29 Laboratory Results 05/28/17 03:58 05/28/17 03:58 05/27/17 05/28/17 05/29/17 05:59 05:59 05:59 Intake Total 900 950 Output Total 1 Balance 900 949 ICD10 Worksheet Patient Problems: Problems Problem Status Onset Lumbar radiculopathy Acute MSSA (methicillin susceptible Staphylococcus aureus) septicemia Acute Allergic bronchopulmonary aspergillosis Chronic Hepatitis C antibody positive in blood Chronic
--- NOTE | 2017-05-28 12:59 | PDIAF ---
- Diagnosis Diagnosis: Bloodstream infection with MSSA and C. glabrata Code Status: Full Code - Medication Management Discharge Medications: Medications to Continue on Transfer Beclomethasone Qvar 80 [Qvar 80 (*)] 2 puffs IH BIDI 08/02/16 [Last Taken 09:00] Montelukast Sodium [Singulair 10 mg (*)] 10 mg PO DAILY 08/02/16 [Last Taken 07/30] Fluoxetine HCl [Prozac 40 mg] 40 mg PO DAILY 04/27/17 [Last Taken 05/23/17] Mometasone Furoate Nasal [Nasonex] 2 sprays NASAL BID 04/27/17 [Last Taken 05/23 09:00] Albuterol [Proventil Inhaler HFA (*)] 1 - 2 puffs IH DAILY PRN 05/01/17 [Last Taken Unknown] Dextroamphetamine/Amphetamine [Adderall 30 mg Tablet] 30 mg PO BID 05/01/17 [ Last Taken 05/23/17 09:00] Herbals/Supplements -Info Only 1 ea PO DAILY 05/01/17 [Last Taken Unknown] Acetylcysteine 10% [Mucomyst 10% 30 ML (*)] 2 ml IH BID 05/03/17 [Last Taken 07/30 09:00] Acetylcysteine 10% [Mucomyst 10% 30 ML (*)] 2 ml IH BID PRN 05/03/17 [Last Taken Unknown] Ipratropium/Albuterol [Duoneb (*)] 3 ml IH BID PRN 05/03/17 [Last Taken Unknown] 7% Sodium Chloride 1 ea IH BID 05/05/17 [Last Taken 05/23/17 09:00] 7% Sodium Chloride 1 ea IH BID PRN 05/05/17 [Last Taken Unknown] Fluticasone/Salmeter 250/50Mcg [Advair 250/50 (*)] 1 puffs IH BID disk [Last Taken 05/23/17 09:00] Sennosides/Docusate Sodium [Senokot-S] 1 - 2 tab PO BID tab 05/10/17 [Last Taken Unknown] Cefazolin 6gm/240ml 6 mg IV DAILY@0830 05/24/17 [Last Taken 05/23/17] Cholecalciferol Vit D3 [Vitamin D3 (*)] 5,000 units PO DAILY 05/24/17 [Last Taken Unknown] Diazepam [Valium 5 MG (*)] 5 mg PO HS PRN 05/24/17 [Last Taken 05/22/17] Fluticasone Nasal [Flonase Nasal [place]] 2 sprays NASAL BID 05/24/17 [Last Taken 05/23/17 09:00] oxyCODONE IR [Oxycodone Ir (*)] 30 mg PO Q4-6PRN PRN 05/24/17 [Last Taken ] Micafungin Na [Mycamine 100Mg Vial] 100 mg IV DAILY vial 05/28/17 [Last Taken Unknown] ceFAZolin 2 GM/DEXTROSE [Ancef 2 gm (Premix)] 2 g IV Q8HRS #0 bag 05/28/17 [ Last Taken Unknown] Fpc Antibiotics: cefazolin 6mg IV CI q23hrs; micafungin 100mg IV daily Fpc Antibiotic Stop Date: 06/09/17 (give micafungin during period of cefazolin "ball" change) Discharge Medications: Refer to the Discharge Home Medication list for PRN reason. PICC Care - Routine: Yes - Labs/Radiology CBC Date: 06/03/17 (Saturday, weekly) CMP Date: 06/03/17 (Saturday, weekly) Call or Fax Lab and Imaging Results to: [facility] [phone] - Follow Up Care Current Providers and Referrals: Patient,NotPresent [Primary Care Provider] - Brisa Altamirano MD [Medical Doctor] - follow up in 1 week
--- NOTE | 2017-05-28 14:22 | PDIAF ---
- Diagnosis Diagnosis: Bloodstream infection with MSSA and C. glabrata Code Status: Full Code - Medication Management Discharge Medications: Medications to Continue on Transfer Beclomethasone Qvar 80 [Qvar 80 (*)] 2 puffs IH BIDI 08/02/16 [Last Taken 09:00] Montelukast Sodium [Singulair 10 mg (*)] 10 mg PO DAILY 08/02/16 [Last Taken 07/30] Fluoxetine HCl [Prozac 40 mg] 40 mg PO DAILY 04/27/17 [Last Taken 05/23/17] Mometasone Furoate Nasal [Nasonex] 2 sprays NASAL BID 04/27/17 [Last Taken 05/23 09:00] Albuterol [Proventil Inhaler HFA (*)] 1 - 2 puffs IH DAILY PRN 05/01/17 [Last Taken Unknown] Dextroamphetamine/Amphetamine [Adderall 30 mg Tablet] 30 mg PO BID 05/01/17 [ Last Taken 05/23/17 09:00] Herbals/Supplements -Info Only 1 ea PO DAILY 05/01/17 [Last Taken Unknown] Acetylcysteine 10% [Mucomyst 10% 30 ML (*)] 2 ml IH BID 05/03/17 [Last Taken 07/30 09:00] Acetylcysteine 10% [Mucomyst 10% 30 ML (*)] 2 ml IH BID PRN 05/03/17 [Last Taken Unknown] Ipratropium/Albuterol [Duoneb (*)] 3 ml IH BID PRN 05/03/17 [Last Taken Unknown] 7% Sodium Chloride 1 ea IH BID 05/05/17 [Last Taken 05/23/17 09:00] 7% Sodium Chloride 1 ea IH BID PRN 05/05/17 [Last Taken Unknown] Fluticasone/Salmeter 250/50Mcg [Advair 250/50 (*)] 1 puffs IH BID disk [Last Taken 05/23/17 09:00] Sennosides/Docusate Sodium [Senokot-S] 1 - 2 tab PO BID tab 05/10/17 [Last Taken Unknown] Cefazolin 6gm/240ml 6 mg IV DAILY@0830 05/24/17 [Last Taken 05/23/17] Cholecalciferol Vit D3 [Vitamin D3 (*)] 5,000 units PO DAILY 05/24/17 [Last Taken Unknown] Diazepam [Valium 5 MG (*)] 5 mg PO HS PRN 05/24/17 [Last Taken 05/22/17] Fluticasone Nasal [Flonase Nasal [place]] 2 sprays NASAL BID 05/24/17 [Last Taken 05/23/17 09:00] oxyCODONE IR [Oxycodone Ir (*)] 30 mg PO Q4-6PRN PRN 05/24/17 [Last Taken ] Micafungin Na [Mycamine 100Mg Vial] 100 mg IV DAILY vial 05/28/17 [Last Taken Unknown] ceFAZolin 2 GM/DEXTROSE [Ancef 2 gm (Premix)] 2 g IV Q8HRS #0 bag 05/28/17 [ Last Taken Unknown] Usp Antibiotics: cefazolin 6mg IV CI q23hrs; micafungin 100mg IV daily Usp Antibiotic Stop Date: 06/09/17 Discharge Medications: Refer to the Discharge Home Medication list for PRN reason. PICC Care - Routine: Yes - Orders Services needed: Home Care, Registered Nurse, Master Animal Daycare Provider, Physical Therapy, Occupational Therapy Home Care Face to Face: I certify that this patient was under my care and that I had the required [id number] encounter meeting the encounter requirements on the discharge day. My findings support the fact that the patient is homebound as defined in CMS Chapter 7 Medicare Benefits Manual 30.1.1, The condition of the patient is such that there exists a normal inability to leave home and consequently, leaving home would require a considerable and taxing effort. Diet Recommendation: no restrictions on diet - Labs/Radiology CBC Date: 06/03/17 (Saturday, weekly) CMP Date: 06/03/17 (Saturday, weekly) - Follow Up Care Current Providers and Referrals: Brisa Altamirano MD [Medical Doctor] - follow up in 1 week Patient,NotPresent [Primary Care Provider] -
--- NOTE | 2017-05-28 14:44 | PDIAF ---
- Diagnosis Diagnosis: Bloodstream infection with MSSA and C. glabrata Code Status: Full Code - Medication Management Discharge Medications: Medications to Continue on Transfer Beclomethasone Qvar 80 [Qvar 80 (*)] 2 puffs IH BIDI 08/02/16 [Last Taken 09:00] Montelukast Sodium [Singulair 10 mg (*)] 10 mg PO DAILY 08/02/16 [Last Taken 07/30] Fluoxetine HCl [Prozac 40 mg] 40 mg PO DAILY 04/27/17 [Last Taken 05/23/17] Mometasone Furoate Nasal [Nasonex] 2 sprays NASAL BID 04/27/17 [Last Taken 05/23 09:00] Albuterol [Proventil Inhaler HFA (*)] 1 - 2 puffs IH DAILY PRN 05/01/17 [Last Taken Unknown] Dextroamphetamine/Amphetamine [Adderall 30 mg Tablet] 30 mg PO BID 05/01/17 [ Last Taken 05/23/17 09:00] Herbals/Supplements -Info Only 1 ea PO DAILY 05/01/17 [Last Taken Unknown] Acetylcysteine 10% [Mucomyst 10% 30 ML (*)] 2 ml IH BID 05/03/17 [Last Taken 07/30 09:00] Acetylcysteine 10% [Mucomyst 10% 30 ML (*)] 2 ml IH BID PRN 05/03/17 [Last Taken Unknown] Ipratropium/Albuterol [Duoneb (*)] 3 ml IH BID PRN 05/03/17 [Last Taken Unknown] 7% Sodium Chloride 1 ea IH BID 05/05/17 [Last Taken 05/23/17 09:00] 7% Sodium Chloride 1 ea IH BID PRN 05/05/17 [Last Taken Unknown] Fluticasone/Salmeter 250/50Mcg [Advair 250/50 (*)] 1 puffs IH BID disk [Last Taken 05/23/17 09:00] Sennosides/Docusate Sodium [Senokot-S] 1 - 2 tab PO BID tab 05/10/17 [Last Taken Unknown] Cefazolin 6gm/240ml 6 mg IV DAILY@0830 05/24/17 [Last Taken 05/23/17] Cholecalciferol Vit D3 [Vitamin D3 (*)] 5,000 units PO DAILY 05/24/17 [Last Taken Unknown] Diazepam [Valium 5 MG (*)] 5 mg PO HS PRN 05/24/17 [Last Taken 05/22/17] Fluticasone Nasal [Flonase Nasal [place]] 2 sprays NASAL BID 05/24/17 [Last Taken 05/23/17 09:00] oxyCODONE IR [Oxycodone Ir (*)] 30 mg PO Q4-6PRN PRN 05/24/17 [Last Taken ] Micafungin Na [Mycamine 100Mg Vial] 100 mg IV DAILY vial 05/28/17 [Last Taken Unknown] ceFAZolin 2 GM/DEXTROSE [Ancef 2 gm (Premix)] 2 g IV Q8HRS #0 bag 05/28/17 [ Last Taken Unknown] [facility] Antibiotics: cefazolin 6mg IV CI q23hrs; micafungin 100mg IV daily [facility] Antibiotic Stop Date: 06/09/17 (give micafungin during period of cefazolin "ball" change) Discharge Medications: Refer to the Discharge Home Medication list for PRN reason. PICC Care - Routine: Yes - Orders Services needed: Home Care, Registered Nurse, Master Geopolitics Teacher, Physical Therapy, Occupational Therapy Home Care Face to Face: I certify that this patient was under my care and that I had the required [id number] encounter meeting the encounter requirements on the discharge day. My findings support the fact that the patient is homebound as defined in CMS Chapter 7 Medicare Benefits Manual 30.1.1, The condition of the patient is such that there exists a normal inability to leave home and consequently, leaving home would require a considerable and taxing effort. Diet Recommendation: no restrictions on diet - Labs/Radiology CBC Date: 06/03/17 (Saturday, weekly) CMP Date: 06/03/17 (Saturday, weekly) Call or Fax Lab and Imaging Results to: [facility] [phone] - Follow Up Care Current Providers and Referrals: Brisa Altamirano MD [Medical Doctor] - follow up in 1 week Patient,NotPresent [Primary Care Provider] -
--- NOTE | 2017-05-28 16:26 | PDIAF ---
- Diagnosis Diagnosis: Bloodstream infection with MSSA and C. glabrata Code Status: Full Code - Medication Management Discharge Medications: Medications to Continue on Transfer Beclomethasone Qvar 80 [Qvar 80 (*)] 2 puffs IH BIDI 08/02/16 [Last Taken 09:00] Montelukast Sodium [Singulair 10 mg (*)] 10 mg PO DAILY 08/02/16 [Last Taken 07/30] Fluoxetine HCl [Prozac 40 mg] 40 mg PO DAILY 04/27/17 [Last Taken 05/23/17] Mometasone Furoate Nasal [Nasonex] 2 sprays NASAL BID 04/27/17 [Last Taken 05/23 09:00] Albuterol [Proventil Inhaler HFA (*)] 1 - 2 puffs IH DAILY PRN 05/01/17 [Last Taken Unknown] Dextroamphetamine/Amphetamine [Adderall 30 mg Tablet] 30 mg PO BID 05/01/17 [ Last Taken 05/23/17 09:00] Herbals/Supplements -Info Only 1 ea PO DAILY 05/01/17 [Last Taken Unknown] Acetylcysteine 10% [Mucomyst 10% 30 ML (*)] 2 ml IH BID 05/03/17 [Last Taken 07/30 09:00] Acetylcysteine 10% [Mucomyst 10% 30 ML (*)] 2 ml IH BID PRN 05/03/17 [Last Taken Unknown] Ipratropium/Albuterol [Duoneb (*)] 3 ml IH BID PRN 05/03/17 [Last Taken Unknown] 7% Sodium Chloride 1 ea IH BID 05/05/17 [Last Taken 05/23/17 09:00] 7% Sodium Chloride 1 ea IH BID PRN 05/05/17 [Last Taken Unknown] Fluticasone/Salmeter 250/50Mcg [Advair 250/50 (*)] 1 puffs IH BID disk [Last Taken 05/23/17 09:00] Sennosides/Docusate Sodium [Senokot-S] 1 - 2 tab PO BID tab 05/10/17 [Last Taken Unknown] Cefazolin 6gm/240ml 6 mg IV DAILY@0830 05/24/17 [Last Taken 05/23/17] Cholecalciferol Vit D3 [Vitamin D3 (*)] 5,000 units PO DAILY 05/24/17 [Last Taken Unknown] Diazepam [Valium 5 MG (*)] 5 mg PO HS PRN 05/24/17 [Last Taken 05/22/17] Fluticasone Nasal [Flonase Nasal [place]] 2 sprays NASAL BID 05/24/17 [Last Taken 05/23/17 09:00] oxyCODONE IR [Oxycodone Ir (*)] 30 mg PO Q4-6PRN PRN 05/24/17 [Last Taken ] Micafungin Na [Mycamine 100Mg Vial] 100 mg IV DAILY vial 05/28/17 [Last Taken Unknown] ceFAZolin 2 GM/DEXTROSE [Ancef 2 gm (Premix)] 2 g IV Q8HRS #0 bag 05/28/17 [ Last Taken Unknown] predniSONE 10 mg PO DAILY #12 tab 05/28/17 [Last Taken Unknown] [facility] Antibiotics: cefazolin 6mg IV CI q23hrs; micafungin 100mg IV daily [facility] Antibiotic Stop Date: 06/09/17 (give micafungin during period of cefazolin "ball" change) Discharge Medications: Refer to the Discharge Home Medication list for PRN reason. PICC Care - Routine: Yes - Orders Services needed: Home Care, Registered Nurse, Master Bottle Inspector, Physical Therapy, Occupational Therapy Home Care Face to Face: I certify that this patient was under my care and that I had the required [id number] encounter meeting the encounter requirements on the discharge day. My findings support the fact that the patient is homebound as defined in CMS Chapter 7 Medicare Benefits Manual 30.1.1, The condition of the patient is such that there exists a normal inability to leave home and consequently, leaving home would require a considerable and taxing effort. Diet Recommendation: no restrictions on diet - Labs/Radiology CBC Date: 06/03/17 (Saturday, weekly) CMP Date: 06/03/17 (Saturday, weekly) Call or Fax Lab and Imaging Results to: [facility] [phone] - Follow Up Care Current Providers and Referrals: Brisa Altamirano MD [Medical Doctor] - follow up in 1 week Patient,NotPresent [Primary Care Provider] -
--- NOTE | 2017-05-29 02:15 | GDS ---
[f rep st] DISCHARGE SUMMARY DISCHARGE DIAGNOSES: 1. Methicillin sensitive Staphylococcus aureus bacteremia. 2. Acute candidemia with Cara glabrata. 3. Sacral insufficiency fracture. 4. Chronic prednisone use. 5. Chronic pain with chronic continuous opioid dependence. 6. Acute hypoxemic respiratory failure, resolved. Patient discharged on room air. 7. Bronchopulmonary aspergillosis. 8. Asthma. 9. Protein calorie malnutrition. CONSULTANTS: Dr. Brisa Altamirano, Infectious Diseases. HISTORY: For details, please see the History and Physical dated May 23, 2017. In brief, the ni ghosh is a 51-year-old female who was transferred to [facility] from an outside facilit y with a diagnosis of MSSA bacteremia, sacral fracture, and acute hypoxemic respiratory failure. Beck cruz was initially admitted to [facility] in April and discharged on May 10, 2017, on IV cefazolin for MSSA bacteremia. She then presented to [facility] with acute shortness of breath. Workup was negative for pulmonary embolism. She was diagnosed with heart failure, and w as transferred back to [facility] at her request. She was admitted to the hospital fo r further evaluation. HOSPITAL COURSE: Patient was admitted to the cardiac telemetry unit. She presented with an elevate d BNP and pulmonary edema on her chest x-ray. She was treated with 1 dose of IV Lasix and her oxyge n requirement resolved. CT pulmonary angiogram here was again negative for pulmonary embolism, thou gh showed some diffuse reticulonodular opacities, raising the question of atypical infectious proces s. Ultimately, it was thought this was likely international representative of her pulmonary edema, with resolutio n of symptoms after brief diuresis. Her blood cultures at the outside facility grew Cara glabrat a. This was odd, because she has been on oral voriconazole for her chronic bronchopulmonary aspergi llosis. Infectious Disease consult was obtained. She was started on IV micafungin. Her previous P ICC line was discontinued. Repeat blood cultures were drawn, which remained negative on the day of discharge for greater than 48 hours. Her respiratory PCR panel was negative. A lumbar spine MRI was obtained for back pain, and she was found to have a sacral fracture. I suspe ct this is a sacral insufficiency fracture, and she may be osteoporotic in the setting of chronic pr ednisone use. In addition, her immunosuppression may have put her risk for candidal bacteremia. So me consideration also was given to manipulation of the PICC line in the outpatient setting. I have secondhand information, there may be a history of IV drug use, although she is currently living with her mom and is deemed to be in a safe environment. We initiated a steroid taper and she is current ly on 15 mg of prednisone p.o. daily. We will plan to decrease her by 5 mg every 3 days until she h as tapered off this, at which time she should have followup with her binding bench worker. In addition, he r voriconazole was held while she is on the micafungin. When she completes micafungin therapy, she can resume her voriconazole at her usual outpatient dose. At the time of discharge, her vital signs are stable. She is 93% on room air. A new PICC line was placed on the day of discharge. DISPOSITION: Patient is discharged home with Home Health. She will continue on IV cefazolin, IV mi cafungin with a stop date of June 09. DISCHARGE MEDICATIONS: Please see [facility] for complete updated outpatient medication list. New medications on discharge: 1. She will continue Ancef 2 g IV q.8 hours through June 09. 2. Micafungin 100 mg IV daily through June 09. 3. Prednisone taper starting May 29, 10 mg daily for 3 days, then 5 mg daily for 3 days, then off. Discontinued medications include voriconazole. This should be resumed once she completes her micafu ngin therapy on June 09. FOLLOWUP: 1. Dr. Birsa Altamirano, of Infectious Diseases. 2. Primary Care at the [facility]. /[id number]/MODL
== END 2017-05-28 19:46 | disposition home health service (06) | DRG 189 ==
LOC: F3E 19:35 → OBSVTOIN 20:51 → F2W 22:22
PROVIDERS: ADMIT Family Medicine; ATTEND Family Medicine
PROC: 02HV33Z Insertion of Infusion Device into Superior Vena Cava, Percutaneous Approach (ICD-10-PCS; principal; 2017-05-28)
DX: J81.0 Acute pulmonary edema (principal); J96.01 Acute respiratory failure with hypoxia; M84.68XA Pathological fracture in other disease, other site, initial encounter for fracture; F11.20 Opioid dependence, uncomplicated; B44.81 Allergic bronchopulmonary aspergillosis; E46 Unspecified protein-calorie malnutrition; Z68.1 Body mass index [BMI] 19.9 or less, adult; E05.90 Thyrotoxicosis, unspecified without thyrotoxic crisis or storm; A49.01 Methicillin susceptible Staphylococcus aureus infection, unspecified site; B37.9 Candidiasis, unspecified; G89.29 Other chronic pain; J45.909 Unspecified asthma, uncomplicated; B19.20 Unspecified viral hepatitis C without hepatic coma; F41.9 Anxiety disorder, unspecified; F43.10 Post-traumatic stress disorder, unspecified; Z79.2 Long term (current) use of antibiotics
CPT/HCPCS: 84481-90; 87449-90; 97116-GP; 97162-GP; 97166-GO; 97530-GP; A9585; C1751; J0690; J1642; J1650; J1940; J2248; Q9967